=== PATIENT | female | born 1945 ===

== ENCOUNTER 2022-09-29 00:28 | Inpatient (IN) | payer MEDICARE, MEDICAID, SELFPAY ==
--- OUTSIDE RECORDS SUMMARY | 2022-09-29 00:31 | XMS_ITS | Continuity of Care Document ---
Author Name [facility] Address [address] [place] [id number] Organization [facility] Address [address] [place] [address] Care Team Providers Care Superintendent Geophysical Laboratory Name Role Phone Raphael Dupree Rounding Physician Shahzad Jackson Primary Care Physician Allergies, Adverse Reactions, Alerts Allergen Type Severity Reaction Last Updated Verified Status carbamazepine Allergy Mild Unknown November 19, 2020 Y Ac tive glipizide Allergy Unknown September 27, 2022 Y Active lurasidone Allergy Unknown September 27, 2022 Y Activ e Sulfa (Sulfonamide Antibiotics) Allergy Unknown September 27, 2022 Y Active Medications No known medications. Problem List Inactive/Resolved Problems Medical Problem Onset Date Status Acute psychosis Inactive Acute delirium Inactive Procedures Procedure Date Status ECG 12 Lead EKG September 27, 2022 active Relevant Diagnostic Tests and/or Laboratory Data Laboratory Results Test Date/Time Result Interp. Ref. Range Result Co mment White Blood Count September 27, 2022 9:30am 1.59 K/uL Low 3.5-11.0 Results of WBC called to and read back by Dina MORRIS RN on 09/27/22 at 1010 by SHAY. Red Blood Count September 27, 2022 9:30am 4.61 M/uL 3.60-4.80 Hemoglobin September 27, 2022 9:30am 12.8 g/dL 12.0-16.0 Hematocrit September 27, 2022 9:30am 38.4 % 36.0-48.0 Mean Corpuscular Volume September 27, 2022 9:30am 83.3 fL 79.0-98.0 Mean Corpuscular Hemoglobin September 27, 2022 9:30am 27.8 pg 25.4-34.6 Mean Corpuscular Hemoglobin Concent September 27, 2022 9:30am 33.3 g/dL 30.0-36.0 Red Cell Distribution Width September 27, 2022 9:30am 14.6 % High 11.5-14.5 Platelet Count September 27, 2022 9:30am 58 K/uL Low 150-400 Neutrophils (%) (Auto) September 27, 2022 9:30am Not Reportable Lymphocytes (%) (Auto) September 27, 2022 9:30am Not Reportable Monocytes (%) (Auto) September 27, 2022 9:30am Not Reportable Eosinophils (%) (Auto) September 27, 2022 9:30am Not Reportable Basophils (%) (Auto) September 27, 2022 9:30am Not Reportable Absolute Neutrophils (auto) September 27, 2022 9:30am Not Reportable Lymphocytes # (Auto) September 27, 2022 9:30am Not Reportable Monocytes # (Auto) September 27, 2022 9:30am Not Reportable Eosinophils # (Auto) September 27, 2022 9:30am Not Reportable Basophils # (Auto) September 27, 2022 9:30am Not Reportable Sodium Level September 27, 2022 9:30am 135 mmol/L Low 136-145 Potassium Level September 27, 2022 9:30am 3.4 mmol/L Low 3.5-5.1 Chloride Level September 27, 2022 9:30am 98 mmol/L 98-107 Carbon Dioxide Level September 27, 2022 9:30am 22.4 mmol/L 22-29 Anion Gap September 27, 2022 9:30am 18 mmol/L 10-20 Blood Urea Nitrogen September 27, 2022 9:30am 27 mg/dL High 8-23 Creatinine September 27, 2022 9:30am 0.91 mg/dL High 0.50-0.90 Estimat Glomerular Filtration Rate September 27, 2022 9:30am 65 GFR Value: mL/min/1.73 square meters Calculation: CKD-EPI Creatinine Equation (2020) Chronic Kidney Disease is defined as either of the following present for >= 3 months: - GFR less than 60 mL/min/1.73 square meters. - Microalbumin:Ur . Creatinine Ratio >= 30 mg/g or other markers of kidney damage Kidney failure is less than 15 mL/min/1.73 square meters This test is not performed in patients under the age of 18. Glucose Level September 27, 2022 9:30am 353 mg/dL High 82-115 Bedside Glucose September 27, 2022 9:29am 305 mg/dL High 82-115 Calcium Level September 27, 2022 9:30am 9.8 mg/dL 8.8-10.2 Total Bilirubin September 27, 2022 9:30am 0.9 mg/dL 0.2-1.2 Aspartate Amino Transf (AST/SGOT) September 27, 2022 9:30am 32 U/L 5-32 Alanine Aminotransferase (ALT/SGPT) September 27, 2022 9:30am 15 U/L 5-33 Total Protein September 27, 2022 9:30am 7.7 g/dL 6.4-8.3 Albumin September 27, 2022 9:30am 4.7 g/dL 3.5-5.2 Globulin September 27, 2022 9:30am 3.0 gm/dl 2.0-3.5 Albumin/Globulin Ratio September 27, 2022 9:30am 1.6 % 1.1-2.5 Alkaline Phosphatase September 27, 2022 9:30am 123 U/L High 35-104 Advance Directives Advance Directive Response Recorded Date/ Time Any Other Advanced Directives No Au 2022 9:18am Health Care Proxy No September 27 9:18am Chief Complaint and Reason for Visit Encounter Admit Date Chief Complaint Reason for V isit Registered Emergency September 27, 2022 9:17am psych Hospital Discharge Instructions No known hospital discharge instructions. Encounters Encounter Facility Location Admit/Visit Date Discharge/Departure Date Attending Provider Registered Emergency [facility] Emergency Dept [place] September 27, 2022 9:17am Functional Status No known functional status. Immunizations No known immunizations. Plan of Care No Known Plan of Care Information Social History No known social history. Vital Signs Vital Reading Result Reference Range Collection Date/Time Height 5 ft 1 in September 27, 2022 9:22am Weight 128 lb September 27, 2022 9:22am Temperature 97.4 F 96.8 F-100.4 F September 27 9:18am Pulse 125 BPM 50-100 September 27, 2022 9:18am Respiration 18 RPM 12-20 September 27, 2022 9:18am Pulse Oximetry 98 % 92-100 September 27 9:18am Blood Pressure Systolic 198 90-139 [facility] 2022 9:18am Blood Pressure Diastolic 94 60-89 Sep [facility] 2022 9:18am Body Mass Index 24.2 September 27 023 9:22am
--- OUTSIDE RECORDS SUMMARY | 2022-09-29 00:31 | XMS_ITS | Continuity of Care Document ---
Author Name Unknown Organization [facility] Address [address] [place] [address]- Care Team Providers Care Telegraphic Instrument Supervisor Name Role Phone Helder Sanz MD Primary Care Physician [place] [facility] [place] 08/18/[address] [address] [phone] Discharge Disposition: A-Transfer SNF Attending Physician: Bayron Aguilar MD Admitting Physician: Mela BERNAL, Rodrigo Sanchez Referring Physician: Not on Staff, Referring MD Allergies, Adverse Reactions, Alerts Substance Reaction Severity Status sulfADIAZINE Active glipiZIDE Active Tegretol unknown Active Latex Active Immunizations Given and Recorded Vaccine Date Status Refusal Reason pneumococcal 13-valent vaccine 08/16/19 Given Medications amLODIPine 2.5 mg oral tablet 2.5 mg, 1, tablet, By Mouth, Daily, Refills 0, Maintenance, 08/15/19 19:49:00 EDT Start Date: 08/15/19 Status: Ordered aspirin 81 mg oral tablet, chewable 1 tablet = 81 mg, Daily, 0 Refills, Maintenance, 08/14/19 16:25:00 EDT Start Date: 08/14/19 Status: Ordered Fluocinonide 0.05% Topical 1 application, Topically, 2 times a day, 0 Refills, Maintenance, Cream Start Date: 08/15/19 Status: Ordered fluvoxaMINE 100 mg oral tablet 1 tablet = 100 mg, By Mouth, Daily at bedtime, 0 Refills, Maintenance, 08/15/19 19:52:00 EDT Start Date: 08/15/19 Status: Ordered glimepiride 1 mg oral tablet 1 tablet = 1 mg, By Mouth, Daily, 0 Refills, Maintenance, 08/15/19 19:50:00 EDT Start Date: 08/15/19 Status: Ordered Januvia 100 mg oral tablet 1 tablet = 100 mg, By Mouth, Daily, 0 Refills, Maintenance, 08/15/19 19:54:00 EDT Start Date: 08/15/19 Status: Ordered Latuda 80 mg oral tablet 1 tablet = 80 mg, By Mouth, 2 times a day, 0 Refills, Maintenance, 08/15/19 19:50:00 EDT Start Date: 08/15/19 Status: Ordered metFORMIN 500 mg oral tablet 2 tablet = 1,000 mg, By Mouth, 2 times a day, 0 Refills, Maintenance, 08/15/19 19:51:00 EDT Start Date: 08/15/19 Status: Ordered prazosin 1 mg oral capsule 1 mg, 1, capsule, By Mouth, Daily at bedtime, Refills 0, Maintenance, 08/15/19 19:53:00 EDT Start Date: 08/15/19 Status: Ordered Trazodone = 50 mg, By Mouth, Daily at bedtime, PRN Sleep, 0 Refills, Maintenance, 08/15/19 19:51:00 EDT Start Date: 08/15/19 Status: Ordered Problem List Condition Effective Dates Status Health Status Inform ant Hypertension(Confirmed) Active PTSD (post-traumatic stress disorder)(Confirmed) Active Schizophrenia(Confirmed) Active Type 2 diabetes mellitus(Confirmed) Active Vital Signs Most recent to oldest [Reference Range]: 1 2 3 Height 155 cm (08/18/19 7:07 AM) 155 cm (08/18/19 4:39 AM) 155 cm (08/17/19 11:36 PM) Weight 67.5 kg (08/15/19 7:45 PM) 67.5 kg (08/15/19 7:26 PM) 72.5 kg (08/15/19 2:16 PM) Oxygen Saturation [94-100 %] 99 % (08/18/19 7:07 AM) 98 % (08/18/19 4:39 AM) 97 % (08/17/19 11:36 PM) Pulse Rate [55-90 bpm] 72 bpm (08/18/19 7:07 AM) 84 bpm (08/18/19 4:39 AM) 94 bpm *H* (08/17/19 11:36 PM) Body Mass Index [18.5-24.99] 28.1 *H* (08/15/19 7:45 PM) 28.1 *H* (08/15/19 7:26 PM) 30.18 *>HHI* (08/15/19 2:16 PM) Blood Pressure [90-138/55-84 mm Hg] 143/51mm Hg *H* (08/18/19 9:26 AM) 143/51mm Hg *H* (08/18/19 7:07 AM) 155/62mm Hg *H* (08/18/19 4:39 AM) Respiratory Rate [16-30 br/min] 20 br/min (08/18/19 7:07 AM) 17 br/min (08/18/19 4:39 AM) 17 br/min (08/17/19 11:36 PM) Temperature [96.8-100.4 DegF] 98.3 DegF (08/18/19 7:07 AM) 97.7 DegF (08/18/19 4:39 AM) 97.9 DegF (08/17/19 11:36 PM) Liters per Minute 0 L/min (08/16/19 7:00 PM) 0 L/min (08/16/19 4:03 PM) 0 L/min (08/15/19 7:26 PM) Mode of Delivery (Oxygen) Room air (08/18/19 7:07 AM) Room air (08/18/19 4:39 AM) Room air (08/17/19 11:36 PM) Blood pressure sites Arm, right (08/18/19 7:07 AM) Arm, right (08/18/19 4:39 AM) Arm, right (08/17/19 11:36 PM) Temperature Route Oral (08/18/19 7:07 AM) Oral (08/18/19 4:39 AM) Oral (08/17/19 11:36 PM) Dry Weight 67.5 kg (08/15/19 7:45 PM) 72.5 kg (08/15/19 2:16 PM) 72.5 kg (08/14/19 4:13 PM) Weight Obtained Via Bed scale (08/15/19 7:45 PM) Bed scale (08/15/19 7:26 PM) Patient/family stated (08/14/19 4:13 PM) Dry Weight Obtained Via Bed scale (08/15/19 7:45 PM) Mobility assistance Independent (08/16/19 1:00 AM)
--- OUTSIDE RECORDS SUMMARY | 2022-09-29 00:31 | XMS_ITS | Continuity of Care Document ---
Author Name [facility] Address [address] [place] [id number] Organization [facility] Address [address] [place] [address] Care Team Providers Care Grade Recorder Name Role Phone Shahzad Jackson Primary Care Physician [place] Rounding Physician [phone] Allergies, Adverse Reactions, Alerts Allergen Type Severity Reaction Last Updated Verified Status carbamazepine Allergy Mild Unknown September 27, 2022 Y Ac tive glipizide Allergy Unknown September 27, 2022 Y Active lurasidone Allergy Unknown September 27, 2022 Y Activ e Sulfa (Sulfonamide Antibiotics) Allergy Unknown September 27, 2022 Y Active Medications Active Medications Medication Dose Units Route Sig Start Date Status Metformin 500 MG Oral 2 times a day September 27, 2022 Active Sitagliptin Phosphate [Januvia] 100 MG Oral daily September 27, 2022 Active Problem List Active Problems Medical Problem Onset Date Status Acute psychosis Active Paranoid behavior Active Inactive/Resolved Problems Medical Problem Onset Date Status Acute psychosis Inactive Acute delirium Inactive Procedures Procedure Date Status ECG 12 Lead EKG September 27, 2022 active Relevant Diagnostic Tests and/or Laboratory Data Laboratory Results Test Date/Time Result Interp. Ref. Range Result Co mment White Blood Count September 27, 2022 9:30am 1.59 K/uL Low 3.5-11.0 Results of WBC c alled to and read back by Dina MORRIS [...] (Auto) September 27, 2022 9:30am Not Reportable Differential Total Cells Counted September 27, 2022 9:30am 50 Neutrophils % (Manual) September 27, 2022 9:30am 64 % 35-66 Lymphocytes % (Manual) September 27, 2022 9:30am 26 % 25-45 Monocytes % (Manual) September 27, 2022 9:30am 10 % 0-13 Absolute Neutrophils (Manual) September 27, 2022 9:30am 0.51 K/uL Low 1.5-7.5 Results of ANC c alled to and read back by Katharine FARMER RN on 09/27/22 at 1144 by SHAY. Caution: Interpretation of ANC results without inclusion of the WBC differential results may lead to erroneous diagnosis; for example, missing myeloproliferative or lymphoproliferative disorders. Lymphocytes # (Manual) September 27, 2022 9:30am 0.21 K/uL Low 0.8-4.8 Monocytes # (Manual) September 27, 2022 9:30am 0.08 K/uL Low 0.4-1.3 Red Blood Cell Morphology September 27, 2022 9:30am Normal Urine Color September 27, 2022 12:05pm Yellow Yellow Urine Appearance September 27, 2022 12:05pm Clear Clear Urine Specific [place] September 27, 2022 12:05pm 1.010 1.001-1.035 Urine Glucose (UA) September 27, 2022 12:05pm 3+ High Negative Urine Bilirubin September 27, 2022 12:05pm Negative Negative Urine Ketones September 27, 2022 12:05pm Negative Negative Urine Hemoglobin September 27, 2022 12:05pm Trace-intact High Negative Urine pH September 27, 2022 12:05pm 6.5 5.0-8.0 Urine Protein September 27, 2022 12:05pm Negative mg/dl Negative Urine Urobilinogen September 27, 2022 12:05pm 0.2 mg/dl 0.2-1.0 Urine Nitrite September 27, 2022 12:05pm Negative Negative Urine Leukocyte Esterase September 27, 2022 12:05pm Negative Negative Urine RBC September 27, 2022 12:05pm 0-2 0-4/hpf Urine WBC September 27, 2022 12:05pm Rare 0-5/hpf Urine Squamous Epithelial Cells September 27, 2022 12:05pm Rare Few/hpf Urine Bacteria September 27, 2022 12:05pm Rare None seen Sodium Level September 27, 2022 9:30am 135 [...] September 27, 2022 9:30am 65 GFR Value: mL/mi n/1.73 square meters Calculation: CKD-EPI Creatinine Equation (2020) Chronic Kidney Disease is defined as either of the following present for >= 3 months: - GFR less than 60 mL/min/1.73 square meters. - Microalbumin:Ur. Creatinine Ratio >= 30 mg/g or other markers of kidney damage Kidney failure is less than 15 mL/min/1.73 square meters This test is not performed in patients under the age of 18. Glucose Level September 27, 2022 9:30am 353 mg/dL High 82-115 Bedside Glucose September 28, 2022 4:35pm 170 mg/dL High 82-115 Calcium Level September 27, [...] 27, 2022 9:30am 123 U/L High 35-104 Coronavirus 2019 (NEGRO) September 28, 2022 11:31am Negative Negative ID NOW COVID-19 assay is a rapid molecular in vitro diagnostic test utilizing an isothermal nucleic acid amplification technology intended for the qualitative detection of nucleic acid from SARS-CoV-2 viral RNA in direct nasal, nasopharyngeal or throat swabs eluted in viral transport media from individuals who are suspected of COVID-19. Results are for the identification of SARS-CoV-2 RNA which is generally detectable in respiratory samples during the acute phase of infection. Positive results are indicative of the presence of SARS-CoV-2 RNA; clinical correlation with patient history and other diagnostic information is necessary to determine patient infection status. Positive results do not rule out bacterial infection or co-infection with other viruses. Negative results do not preclude SARS-CoV-2 infection and should not be used as the sole basis for patient management decisions. Negative results must be combined with clinical observations, patient history, and epidemiological information. The ID NOW COVID-19 test is only for use under the Food and Drug Administration's Emergency Use Authorization. Advance Directives Advance Directive Response Recorded Date/ Time Any Other Advanced Directives No Au 2022 9:18am Health Care Proxy No September 27 9:18am Chief Complaint and Reason for Visit Encounter Admit Date Chief Complaint Reason for V isit Departed Emergency September 27, 2022 9:17am psych Hospital Discharge Instructions No known hospital discharge instructions. Hospital Discharge Medications Medication Dose Units Route Sig Qty Days Order Date Status Ins tructions Metformin 500 MG Oral 2 times a day September 27, 2022 Active Sitagliptin Phosphate 100 MG Oral daily September 27, 2022 Active Encounters Encounter Facility Location Admit/Visit Date Discharge/Departure Date Attending Provider Departed Emergency [facility] Emergency Dept [place] September 27, 2022 9:17am September 28, 2022 11:18pm Functional Status No known functional status. Immunizations No known immunizations. Plan of Care No Known Plan of Care Information Social History No known social history. Vital Signs Vital Reading Result Reference Range Collection Date/Time Height 5 ft 1 in September 27, 2022 9:22am Weight 128 lb September 27, 2022 9:22am Temperature 97.6 F 96.8 F-100.4 F September 28 8:00am Pulse 90 BPM 50-100 September 28, 2022 4:38pm Respiration 18 RPM 12-September 28, 2022 4:38pm Pulse Oximetry 97 % 92-100 September 28 4:38pm Blood Pressure Systolic 174 90-139 [facility] 2022 4:38pm Blood Pressure Diastolic 88 60-89 [facility] 2022 4:38pm Body Mass Index 24.2 September 27, 2 023 9:22am
--- OUTSIDE RECORDS SUMMARY | 2022-09-29 00:31 | XMS_ITS | Continuity of Care Document ---
Author Name Unknown Organization [facility] Address [address] [place] [address]- Care Team Providers Care Dry Cell Sealer Name Role Phone Helder Sanz MD Primary Care Physician [place] [facility] [place] [address] [phone] Encounter Diagnosis Delusions(Final) - 06/27/19 Paranoia(Final) - 06/27/19 Schizophrenia(Final) - 06/27/19 Stool incontinence(Final) - 06/27/19 Discharge Disposition: Transfer to Psych Facility Attending Physician: Balbir Cueva MD Admitting Physician: Balbir Cueva MD Referring Physician: Not on Staff, Referring MD Allergies, Adverse Reactions, Alerts Substance Reaction Severity Status glipiZIDE Active Tegretol unknown Active Latex Active Medications Chloral Hydrate 100 mg/mL Syrup See Instructions, 0, 01/14/07 11:19:01, 750mg at bed time, Print KIMBERLEY Number, Constant Indicator Start Date: 01/14/07 Status: Ordered Colace Capsule 200, mg, By Mouth, Daily, 0, 0, 01/14/07 11:17:39, Print KIMBERLEY Number, [id number], Constant Indicator Start Date: 01/14/07 Status: Ordered Lamictal Tablet 25, mg, By Mouth, Daily, 0, 0, 01/01/07 15:43:42, Print KIMBERLEY Number, [id number], Constant Indicator Start Date: 01/01/07 Status: Ordered Lamictal Tablet 25, mg, By Mouth, Daily, 0, 0, 0, 01/03/07 10:35:35, Print KIMBERLEY Number, [id number], Constant Indicator Start Date: 01/03/07 Status: Ordered Lisinopril 5, mg, By Mouth, Daily, 0, 0, 01/14/07 11:11:32, Print KIMBERLEY Number, [id number], Constant Indicator Start Date: 01/14/07 Status: Ordered lithium carbonate 300, mg, By Mouth, 2 times a day, 0, 0, 01/01/07 15:42:09, Print KIMBERLEY Number, [id number], ConstantIndicator Start Date: 01/01/07 Status: Ordered metformin-rosiglitazone 1000 mg-2 mg oral tablet 1, tablet, By Mouth, 2 times a day, 0, 0, 01/14/07 11:10:31, Print KIMBERLEY Number, [id number], Constant Indicator Start Date: 01/14/07 Status: Ordered Risperdal Tablet See Instructions, 0, 01/14/07 11:13:22, 2.5mg 2 times a day, Print KIMBERLEY Number, Constant Indicator Start Date: 01/14/07 Status: Ordered Xanax Tablet 0.5, mg, By Mouth, 2 times a day, Scheduled / PRN, 0, 0, 01/01/07 15:45:28, as needed for anxiety, Print KIMBERLEY Number, [id number] Start Date: 01/01/07 Status: Ordered Vital Signs Most recent to oldest [Reference Range]: 1 2 3 Height 158 cm (06/30/19 10:06 AM) 158 cm (06/30/19 1:19 AM) 158 cm (06/29/19 5:48 PM) Weight 71.8 kg (06/30/19 10:06 AM) 71.8 kg (06/30/19 1:19 AM) 71.8 kg (06/29/19 5:48 PM) Oxygen Saturation [94-100 %] 99 % (06/30/19 4:36 PM) 96 % (06/30/19 10:06 AM) 98 % (06/30/19 1:19 AM) Pulse Rate [55-90 bpm] 82 bpm (06/30/19 4:36 PM) 79 bpm (06/30/19 10:06 AM) 86 bpm (06/30/19 1:19 AM) Body Mass Index [18.5-24.99] 28.76 *H* (06/30/19 10:06 AM) 28.76 *H* (06/30/19 1:19 AM) 28.76 *H* (06/29/19 5:48 PM) Blood Pressure [90-138/55-84 mm Hg] 170/66mm Hg *H* (06/30/19 4:36 PM) 178/80mm Hg *H* (06/30/19 10:06 AM) 190/73mm Hg *H* (06/30/19 1:19 AM) Respiratory Rate [16-30 br/min] 18 br/min (06/30/19 4:36 PM) 18 br/min (06/30/19 10:06 AM) 16 br/min (06/30/19 1: AM) Temperature [96.8-100.4 DegF] 97.8 DegF (06/30/19 10:06 AM) 98.3 DegF (06/30/19 1: AM) 98.3 DegF (06/29/19 5:48 PM) Mode of Delivery (Oxygen) Room air (06/30/19 4:36 PM) Room air (06/30/19 1:19 AM) Room air (06/29/19 5:48 PM) Blood pressure sites Arm, left (06/29/19 5:48 PM) Arm, right (06/28/19 9:16 PM) Arm, left (06/28/19 2:36 PM) Temperature Route Oral (06/30/19 10:06 AM) Oral (06/30/19 1:19 AM) Oral (06/29/19 5:48 PM) Dry Weight 71.8 kg (06/30/19 10:06 AM) 71.8 kg (06/30/19 1:19 AM) 71.8 kg (06/29/19 5:48 PM) Weight Obtained Via Patient/family state d (06/27/19 11:33 AM) Dry Weight Obtained Via Patient/family s tated (06/27/19 11:33 AM)
[2022-09-29 02:33] VITALS: BMI 23.3
[2022-09-29 02:36] VITALS: BP 180/80; PULSE 83; RESP 18; TEMP 36.3; O2SAT 98
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
[2022-09-29 05:19] LABS: Glucose, Whole Blood 242 mg/dL (60-115)
[2022-09-29 08:00] VITALS: BP 175/76; PULSE 88; RESP 16; TEMP 36.2; O2SAT 98
[2022-09-29 10:21] LABS: Glucose, Whole Blood 266 mg/dL (60-115)
--- NOTE | 2022-09-29 13:22 | HO.PM.IMCN ---
History of Present Illness Data of Consult Service Date: 09/29/22 Requesting physician: Gautam Guerin Primary Care Provider: Unknown Physician HPI Reason for consult: medical H&P 77-year-old female with [id number] type 2 diabetes, hypertension, chronic leukopenia admitted to Psychiatry from [facility] ED with consult placed to hospitalist service for medical H and P. The patient refused all medications in the ED. Renal function normal, electrolyte levels normal except for a mild hypokalemia 3.4. Glucose elevated at 353, patient refused metformin stating she no longer has diabetes. She has a chronic leukopenia and white blood cell count in the ED was 1.59 without any evidence of infection. Etiology of leukopenia is unclear. She also has a thrombocytopenia 58. Appears to also have chronic thrombocytopenia on review of [facility] records from 2019. She is not a good historian and denies any complaints at this time. Review of Systems Review of Systems: Yes all other systems are reviewed and are negative [facility] Medical History (Updated 09/29/22 @ 13:26 by CORINNE Alegria) Chronic leukopenia Hyperlipidemia Hypertension Type 2 diabetes mellitus Social History Household Members: None Housing: Apartment Do you presently have visiting nurse or other home services: No Patient Tobacco Use Status: Never used Tobacco e-Cigarette/Vaping Use: Never Used Use of substances other than those prescribed or required for medical reasons: No Currently Displaying Signs/Symptoms of Drug Intoxication Withdrawal: No Any prior treatment program specific to substance use: No Have you been hit, kicked, punched, or otherwise hurt by someone within the past year? If so, by whom?: No Are you made to feel afraid or neglected: No Spiritual Healthcare Practices: none [facility] Practices: none Advance Directives: No Advance Directives Information Provided: No Do you have thoughts of harming others: None Do you have a plan to hurt others: No Plan Recently lost weight without trying: No Nutrition Risks: Dental problems Patient : No : No Poor oral hygiene: Yes (has lost her dentures) Meds Allergies Allergy/AdvReac Type Severity Reaction Status Date / Time No Known Allergies Allergy Verified 09/29/22 00:49 Active Medications: Current Medications Acetaminophen (Acetaminophen 325 Mg Tablet) 650 mg PO Q6H PRN PRN Reason: Headache/Pain Mild Scale (1-3) Al Hydroxide/Mg Hydroxide (Magnesium Hydrox/Alum Hydrox 30 Ml Oral.Susp) 30 ml PO Q6H PRN PRN Reason: Heartburn/Nausea Amlodipine Besylate (Amlodipine Besylate 5 Mg Tablet) 5 mg PO DAILY [facility]; Protocol Last Admin: 09/29/22 08:58 Dose: Not Given Aripiprazole (Aripiprazole 5 Mg Tablet) 5 mg PO DAILY [facility] Last Admin: 09/29/22 08:58 Dose: Not Given Furosemide (Furosemide 20 Mg Tablet) 20 mg PO DAILY [facility]; Protocol Last Admin: 09/29/22 08:58 Dose: Not Given Hydroxyzine HCl (Hydroxyzine Hcl 25 Mg Tablet) 25 mg PO Q6H PRN PRN Reason: Anxiety Magnesium Hydroxide (Milk Of Magnesia 30 Ml Oral.Susp) 30 ml PO DAILY PRN PRN Reason: Constipation Metformin HCl (Metformin Hcl 500 Mg Tablet) 500 mg PO BIDWM [facility] Last Admin: 09/29/22 08:57 Dose: Not Given Sitagliptin Phosphate (Sitagliptin Phosphate 100 Mg Tablet) 100 mg PO DAILY [facility] Last Admin: 09/29/22 08:58 Dose: Not Given Trazodone HCl (Trazodone Hcl 50 Mg Tablet) 50 mg PO BEDTIME MRX1 PRN PRN Reason: Insomnia Physical Exam Vital Signs and Narrative: Vital Signs: Last Vital Signs Temp 97.2 F 09/29/22 08:00 Pulse 88 09/29/22 08:00 Resp 16 09/29/22 08:00 BP 175/76 H 09/29/22 08:00 Pulse Ox 98 09/29/22 08:00 O2 Del Method Room Air 09/29/22 08:00 BMI result Body Mass Index 23.3 Constitutional - Awake and Alert, No apparent distress Eyes - PERRLA, EOMI Cardiovascular - S1S2, RRR, No edema Respiratory - Normal lung expansion, Normal respiratory effort, No respiratory distress, CTA bilaterally Gastrointestinal - NT / ND; +BS; No rebound or guarding Extremities - no calf tenderness bilaterally, no swelling Skin - Warm/Dry Neurological - Alert & oriented x3, CN II-XII in tact, 5/5 strength BUE and BLE Psychological - Appropriate affect Results Labs Labs: Laboratory Results - last 24 hr 09/29/22 09/29/22 05:11 07:28 POC Glucose 242 H 266 H Assessment and Plan (1) Routine medical exam: Status: Acute Plan 77-year-old female with [id number] type 2 diabetes, hypertension, chronic leukopenia admitted to Psychiatry from [facility] ED with consult placed to hospitalist service for medical H and P. #Mood disorder/psychosis -plan per psychiatry # [id number] type 2 diabetes with hyperglycemia -check hemoglobin A1c -point of care glucose -continue metformin -consider Humalog on sliding scale if hyperglycemia persists -diabetic diet if agreeable # hypertension -blood pressure uncontrolled -administer patient's home medications # hyperlipidemia -continue home meds #Chronic leukopenia/thrombocytopenia -chronic per [facility] records -etiology unclear. No evidence of infection -Recommend outpt follow up with hematology Thank you for allowing me to participate in this consult. Signing off at this time. Please do not hesitate to call for further questions. Time Spent With Patient Time: Total time managing care of this patient today ____ minutes.
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
[2022-09-29] MEDS: metFORMIN HCl 500 MG TABLET PO (17:35)
[2022-09-29 18:00] VITALS: BP 180/79; PULSE 75; RESP 16; TEMP 36.7; O2SAT 100
--- NOTE | 2022-09-29 23:28 | PC.NURSE ---
Assumed care 19:30. See assessments for full details. Pt's sister Tala called and requested an update which was provided. Handoff report given 23:00.
[2022-09-30 07:04] LABS: Glucose, Whole Blood 200 mg/dL (60-115)
[2022-09-30 07:25] LABS: Estimated Average Glucose 217 mg/dL; Hemoglobin A1c % 9.2 %
[2022-09-30 07:42] LABS: Alanine Aminotransferase 15 U/L (0-31); Albumin Level 3.9 g/dL (3.5-5.0); Alkaline Phosphatase 95 U/L (39-117); Anion Gap 12 (12-20); Aspartate Amino Transferase 27 U/L (5-31); Bilirubin Total 1.1 mg/dL (0.0-1.0); Blood Urea Nitrogen 26 mg/dL (9-16); Calcium 9.9 mg/dL (8.4-10.2); Carbon Dioxide 23 mmol/L (22-29); Chloride 109 mmol/L (96-108); Cholesterol 129 mg/dL; Creatinine Clr Calc Pharmacy 41.8; Estimated Glomerular Filt Rate > 60; Glucose Fasting 186 mg/dL (60-99); HDL Cholesterol 51 mg/dL; LDL Cholesterol Calculated 66 mg/dl; Sodium 140 mmol/L (135-145); Total Protein 6.7 g/dL (6.5-8.0); Triglycerides 61 mg/dL
[2022-09-30 07:57] LABS: Free T4 (Free Thyroxine) 1.11 ng/dL (0.71-1.85); Thyroid Stimulating Hormone 1.09 uIU/mL (0.32-4.0)
[2022-09-30 08:00] VITALS: BP 190/76; PULSE 70; RESP 16; TEMP 36.3; O2SAT 98
[2022-09-30 08:10] LABS: Folate 7.8 ng/mL (> or = 4.0); Vitamin B12 413 pg/mL (200-900)
[2022-09-30] MEDS: metFORMIN HCl 500 MG TABLET PO ×2 (08:46→16:53)
--- NOTE | 2022-09-30 10:32 | HO.PSYCHPN ---
Subjective Subjective Date of Service: 09/30/22 Reason For Visit: F29 Shizophrenia, F43.10 PTSD Interim History: much more intelligible today, dressed in street clothes. asking for her shoes, asking to sign 3-day notice. BP 190/76. took metformin x 2 otherwise refusing meds incl anti-HTN meds. anxious. Mental Status Exam Mental Status Exam Narrative: adequately dressed and groomed, wearing street clothes. no PMA/PMR. cooperative. speech incr in amount, nml rate, nml loudness, nml tone, decr latency. thoughts more organized, goal-directed on getting shoes and signing 3-day notice. affect non-labile, constricted, normo-intense. no SI/HI/AVH expressed. Diagnostics Vital Signs (24Hr): Vital Signs - 24 hr 09/29/22 18:00 09/30/22 08:00 Temperature 98.0 F 97.3 F Pulse Rate 75 70 Respiratory Rate 16 16 Blood Pressure 180/79 H 190/76 H Pulse Oximetry 100 98 Oxygen Delivery Method Room Air Room Air BMI result Body Mass Index 23.3 Labs 09/30/22 06:53 Labs: Laboratory Results - last 48 hr 09/29/22 09/29/22 09/30/22 05:11 07:28 06:34 Sodium Potassium Chloride Carbon Dioxide Anion Gap BUN Creatinine Estim Creat Clear Calc Estimated GFR POC Glucose 242 H 266 H 200 H Fasting Glucose Estimat Average Glucose Hemoglobin A1c % Calcium Total Bilirubin AST ALT Alkaline Phosphatase Total Protein Albumin Triglycerides Cholesterol LDL Cholesterol, Calc HDL Cholesterol Vitamin B12 Folate TSH Free T4 09/30/22 09/30/22 09/30/22 06:53 06:53 06:53 Sodium 140 Potassium 4.0 Chloride 109 H Carbon Dioxide 23 Anion Gap 12 BUN 26 H Creatinine 0.85 Estim Creat Clear Calc 41.8 Estimated GFR > 60 POC Glucose Fasting Glucose 186 H Estimat Average Glucose 217 Hemoglobin A1c % 9.2 Calcium 9.9 Total Bilirubin 1.1 H AST 27 ALT 15 Alkaline Phosphatase 95 Total Protein 6.7 Albumin 3.9 Triglycerides 61 Cholesterol 129 LDL Cholesterol, Calc 66 HDL Cholesterol 51 Vitamin B12 413 Folate 7.8 TSH 1.09 Free T4 1.11 Medications Medications Current Medications Acetaminophen (Acetaminophen 325 Mg Tablet) 650 mg PO Q6H PRN PRN Reason: Headache/Pain Mild Scale (1-3) Al Hydroxide/Mg Hydroxide (Magnesium Hydrox/Alum Hydrox 30 Ml Oral.Susp) 30 ml PO Q6H PRN PRN Reason: Heartburn/Nausea Amlodipine Besylate (Amlodipine Besylate 5 Mg Tablet) 5 mg PO DAILY [facility]; Protocol Last Admin: 09/30/22 08:48 Dose: Not Given Aripiprazole (Aripiprazole 5 Mg Tablet) 5 mg PO DAILY [facility] Last Admin: 09/30/22 08:48 Dose: Not Given Furosemide (Furosemide 20 Mg Tablet) 20 mg PO DAILY [facility]; Protocol Last Admin: 09/30/22 08:49 Dose: Not Given Hydroxyzine HCl (Hydroxyzine Hcl 25 Mg Tablet) 25 mg PO Q6H PRN PRN Reason: Anxiety Magnesium Hydroxide (Milk Of Magnesia 30 Ml Oral.Susp) 30 ml PO DAILY PRN PRN Reason: Constipation Metformin HCl (Metformin Hcl 500 Mg Tablet) 500 mg PO BIDWM [facility] Last Admin: 09/30/22 08:46 Dose: 500 mg Sitagliptin Phosphate (Sitagliptin Phosphate 100 Mg Tablet) 100 mg PO DAILY [facility] Last Admin: 09/30/22 08:49 Dose: Not Given Trazodone HCl (Trazodone Hcl 50 Mg Tablet) 50 mg PO BEDTIME MRX1 PRN PRN Reason: Insomnia Allergies Allergies Allergy/AdvReac Type Severity Reaction Status Date / Time No Known Allergies Allergy Verified 09/29/22 00:49 Assessment & Plan Assessment & Plan (1) Schizophrenia: Status: Acute Code(s): F20.9 - Schizophrenia, unspecified (2) Diabetes mellitus: Status: Acute Code(s): E11.9 - Type 2 diabetes mellitus without complications (3) Hypertension: Status: Acute Code(s): I10 - Essential (primary) hypertension Plan 09/29: restart home meds. 09/30: refusing all meds aside from metformin. signed 3-day notice. continue to encourage to takes meds. BP 190 systolic today. Reason for continued inpatient stay Substantial Risk for: harm to self, inability to function and rapid decompensation Time Spent With Patient Time: Total time managing care of this patient today ____ minutes.
[2022-09-30 18:00] VITALS: BP 143/65; PULSE 85; RESP 17; TEMP 35.9; O2SAT 98
[2022-10-01 06:59] LABS: Glucose, Whole Blood 213 mg/dL (60-115)
[2022-10-01 10:30] VITALS: BP 185/74; PULSE 74; RESP 16; TEMP 36.4; O2SAT 98
[2022-10-01] MEDS: metFORMIN HCl 500 MG TABLET PO ×2 (10:33→18:09)
[2022-10-01] MEDS: SITagliptin Phosphate 100 MG TABLET PO (10:33)
[2022-10-01] MEDS: ARIPiprazole 5 MG TABLET PO (10:33)
[2022-10-01] MEDS: amLODIPine Besylate 5 MG TABLET PO (10:34)
[2022-10-01] MEDS: Furosemide 20 MG TABLET PO (10:34)
[2022-10-01 11:32] LABS: Glucose, Whole Blood 340 mg/dL (60-115)
--- NOTE | 2022-10-01 11:48 | HO.PSYCHPN ---
Subjective Subjective Date of Service: 10/01/22 Reason For Visit: F29 Shisouravphjean, F43.10 PTSD Interim History: The nursing staff reported the patient signed a 3 day notice, she had been refusing his trachea trich medications and even her metformin. She slept only 2 hours. Yesterday the patient was wandering refusing medications and today her blood pressure was extremely high and she has refused also meds but later on she took it with encouragement. On interview the patient remains grossly psychotic, unable to take care of herself. We are going to file Section 7 and 8. On interview, she recognized me since I used to work in a [employer] in [place]. She stated that she is going to take her medications as ordered. Mental Status Exam Mental Status Exam Patient Appearance: Disheveled Patient Orientation: Person and Situation Level of Consciousness: Awake and Restless Patient Behavior: Guarded, Restless and Avoidant Mood Description: Withdrawn Affect Description: Labile Patient Cognition Impaired: Yes Ability to Follow Directions: Good Speech Pattern: Clear Hallucinations: Auditory Delusions: Paranoid Ideation and Ideas of Reference Thought Process: Illogical and Slowed Thinking Thought Content: positive for [place], positive for Perseveration and positive for Poverty of Content Judgement: Poor Diagnostics Vital Signs (24Hr): Vital Signs - 24 hr 09/30/22 18:00 10/01/22 10:30 Temperature 96.7 F L 97.5 F Pulse Rate 85 74 Respiratory Rate 17 16 Blood Pressure 143/65 H 185/74 H Pulse Oximetry 98 98 Oxygen Delivery Method Room Air Room Air BMI result Body Mass Index 23.3 Labs 09/30/22 06:53 Labs: Laboratory Results - last 48 hr 09/30/22 09/30/22 09/30/22 06:34 06:53 06:53 Sodium 140 Potassium 4.0 Chloride 109 H Carbon Dioxide 23 Anion Gap 12 BUN 26 H Creatinine 0.85 Estim Creat Clear Calc 41.8 Estimated GFR > 60 POC Glucose 200 H Fasting Glucose 186 H Estimat Average Glucose 217 Hemoglobin A1c % 9.2 Calcium 9.9 Total Bilirubin 1.1 H AST 27 ALT 15 Alkaline Phosphatase 95 Total Protein 6.7 Albumin 3.9 Triglycerides 61 Cholesterol 129 LDL Cholesterol, Calc 66 HDL Cholesterol 51 Vitamin B12 Folate TSH 1.09 Free T4 1.11 09/30/22 10/01/22 10/01/22 06:53 06:43 11:28 Sodium Potassium Chloride Carbon Dioxide Anion Gap BUN Creatinine Estim Creat Clear Calc Estimated GFR POC Glucose 213 H 340 H Fasting Glucose Estimat Average Glucose Hemoglobin A1c % Calcium Total Bilirubin AST ALT Alkaline Phosphatase Total Protein Albumin Triglycerides Cholesterol LDL Cholesterol, Calc HDL Cholesterol Vitamin B12 413 Folate 7.8 TSH Free T4 Medications Medications Current Medications Acetaminophen (Acetaminophen 325 Mg Tablet) 650 mg PO Q6H PRN PRN Reason: Headache/Pain Mild Scale (1-3) Al Hydroxide/Mg Hydroxide (Magnesium Hydrox/Alum Hydrox 30 Ml Oral.Susp) 30 ml PO Q6H PRN PRN Reason: Heartburn/Nausea Amlodipine Besylate (Amlodipine Besylate 5 Mg Tablet) 5 mg PO DAILY [facility]; Protocol Last Admin: 10/01/22 10:34 Dose: 5 mg Aripiprazole (Aripiprazole 5 Mg Tablet) 5 mg PO DAILY [facility] Last Admin: 10/01/22 10:33 Dose: 5 mg Furosemide (Furosemide 20 Mg Tablet) 20 mg PO DAILY [facility]; Protocol Last Admin: 10/01/22 10:34 Dose: 20 mg Hydroxyzine HCl (Hydroxyzine Hcl 25 Mg Tablet) 25 mg PO Q6H PRN PRN Reason: Anxiety Magnesium Hydroxide (Milk Of Magnesia 30 Ml Oral.Susp) 30 ml PO DAILY PRN PRN Reason: Constipation Metformin HCl (Metformin Hcl 500 Mg Tablet) 500 mg PO BIDWM [facility] Last Admin: 10/01/22 10:33 Dose: 500 mg Sitagliptin Phosphate (Sitagliptin Phosphate 100 Mg Tablet) 100 mg PO DAILY [facility] Last Admin: 10/01/22 10:33 Dose: 100 mg Trazodone HCl (Trazodone Hcl 50 Mg Tablet) 50 mg PO BEDTIME MRX1 PRN PRN Reason: Insomnia Allergies Allergies Allergy/AdvReac Type Severity Reaction Status Date / Time No Known Allergies Allergy Verified 09/29/22 00:49 Assessment & Plan Assessment & Plan (1) Schizophrenia: Status: Acute Code(s): F20.9 - Schizophrenia, unspecified (2) Diabetes mellitus: Status: Acute Code(s): E11.9 - Type 2 diabetes mellitus without complications (3) Hypertension: Status: Acute Code(s): I10 - Essential (primary) hypertension Plan The patient is a 77-year-old female with a prior history of schizophrenia who was brought into the emergency room of another hospital for disorganized behavior, unable to take care of herself, her home was full with feces is rodents and spoiled food, unable to take care of herself. Since admission she has refused to take medications and she has been grossly disorganized. She is in a 3 day notice. Plan 1. Gather collateral information. 2. We are going to filed for Section 7 and 8 since the patient is unable to take care of herself. 3. We will continue with medical workout. Reason for continued inpatient stay Substantial Risk for: inability to function, rapid decompensation and med/psych decompensation Time Spent With Patient Time: Total time managing care of this patient today __20__ minutes.
--- NOTE | 2022-10-01 11:52 | PC.NURSE ---
THIS NURSE TOOK THIS PT.'S BG PRIOR TO LUNCH AND IT READ 340. SHE THEN REPORTED THIS INFORMATION TO DR. WATERS VIA [employer]. STATED UNDERSTANDING.
[2022-10-01 18:00] VITALS: BP 133/64; PULSE 88; RESP 16; TEMP 35.9; O2SAT 98
[2022-10-02 00:21] LABS: Glucose, Whole Blood 255 mg/dL (60-115)
[2022-10-02 06:10] LABS: Glucose, Whole Blood 159 mg/dL (60-115)
[2022-10-02 08:06] VITALS: BP 170/72; PULSE 94; RESP 20; TEMP 36.4; O2SAT 96
--- NOTE | 2022-10-02 09:26 | PC.NURSE ---
Bp 170/72, denied headache. Refused morning medications and Dr. Guerin notified. Will reassess bp and reapproach with meds.
--- NOTE | 2022-10-02 10:06 | PC.NURSE ---
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 Why do you need to recheck my blood pressure? You just checked it! You're going to make it higher because you keep irritating me. MD Guerin notified.
--- NOTE | 2022-10-02 13:31 | HO.PSYCHPN ---
Subjective Subjective Date of Service: 10/02/22 Reason For Visit: F29 Shizophrenia, F43.10 PTSD Subjective Notes: Section 7, Section 8 and 3 Day Interim History: The nursing staff reported the patient has refused her medications in the morning. She was seen pleasant, in the common areas coloring but later on she was medication and meal compliant. In the evening she slept very poorly. On interview the patient is pleasantly confused I advised her to take her her medications. We will try to do an assessment of her cognition and gather more collateral information. Mental Status Exam Mental Status Exam Patient Appearance: Appropriate Patient Orientation: Person and Situation Level of Consciousness: Awake and Appropriate Patient Behavior: Guarded and Passive Mood Description: Calm Affect Description: Labile Patient Cognition Impaired: Yes Ability to Follow Directions: Fair Speech Pattern: Impoverished Hallucinations: None Delusions: Paranoid Ideation and Ideas of Reference Thought Process: Illogical and Evasive Thought Content: positive for [place] and positive for Perseveration Judgement: Fair Diagnostics Vital Signs (24Hr): Vital Signs - 24 hr 10/01/22 18:00 10/02/22 08:06 Temperature 96.7 F L 97.6 F Pulse Rate 88 94 Respiratory Rate 16 20 Blood Pressure 133/64 170/72 H Pulse Oximetry 98 96 Oxygen Delivery Method Room Air Room Air BMI result Body Mass Index 23.3 Labs 09/30/22 06:53 Labs: Laboratory Results - last 48 hr 10/01/22 10/01/22 10/01/22 06:43 11:28 19:40 POC Glucose 213 H 340 H 255 H 10/02/22 04:17 POC Glucose 159 H Medications Medications Current Medications Acetaminophen (Acetaminophen 325 Mg Tablet) 650 mg PO Q6H PRN PRN Reason: Headache/Pain Mild Scale (1-3) Al Hydroxide/Mg Hydroxide (Magnesium Hydrox/Alum Hydrox 30 Ml Oral.Susp) 30 ml PO Q6H PRN PRN Reason: Heartburn/Nausea Amlodipine Besylate (Amlodipine Besylate 5 Mg Tablet) 5 mg PO DAILY [facility]; Protocol Last Admin: 10/02/22 10:09 Dose: Not Given Aripiprazole (Aripiprazole 5 Mg Tablet) 5 mg PO DAILY [facility] Last Admin: 10/02/22 10:09 Dose: Not Given Furosemide (Furosemide 20 Mg Tablet) 20 mg PO DAILY [facility]; Protocol Last Admin: 10/02/22 10:09 Dose: Not Given Hydroxyzine HCl (Hydroxyzine Hcl 25 Mg Tablet) 25 mg PO Q6H PRN PRN Reason: Anxiety Magnesium Hydroxide (Milk Of Magnesia 30 Ml Oral.Susp) 30 ml PO DAILY PRN PRN Reason: Constipation Metformin HCl (Metformin Hcl 500 Mg Tablet) 500 mg PO BIDWM [facility] Last Admin: 10/02/22 10:09 Dose: Not Given Sitagliptin Phosphate (Sitagliptin Phosphate 100 Mg Tablet) 100 mg PO DAILY [facility] Last Admin: 10/02/22 10:09 Dose: Not Given Trazodone HCl (Trazodone Hcl 50 Mg Tablet) 50 mg PO BEDTIME MRX1 PRN PRN Reason: Insomnia Allergies Allergies Allergy/AdvReac Type Severity Reaction Status Date / Time No Known Allergies Allergy Verified 09/29/22 00:49 Assessment & Plan Assessment & Plan (1) Schizophrenia: Status: Acute Code(s): F20.9 - Schizophrenia, unspecified (2) Diabetes mellitus: Status: Acute Code(s): E11.9 - Type 2 diabetes mellitus without complications (3) Hypertension: Status: Acute Code(s): I10 - Essential (primary) hypertension Plan The patient is a 77-year-old female with a prior history of schizophrenia who was brought into the emergency room of another hospital for disorganized behavior, unable to take care of herself, her home was full with feces is rodents and spoiled food, unable to take care of herself. Since admission she has refused to take medications and she has been grossly disorganized. She is in a 3 day notice. Plan 1. Gather collateral information. 2. We are going to filed for Section 7 and 8 since the patient is unable to take care of herself. 3. We will continue with medical workout. Reason for continued inpatient stay Substantial Risk for: inability to function, rapid decompensation and med/psych decompensation Time Spent With Patient Time: Total time managing care of this patient today __20__ minutes.
--- NOTE | 2022-10-02 16:53 | PC.NURSE ---
Refused [address] Guerin notified.
[2022-10-02 18:00] VITALS: BP 177/80; PULSE 90; RESP 16; TEMP 35.5; O2SAT 99
--- NOTE | 2022-10-02 21:53 | PC.NURSE ---
pt seated in the common area speaking with a peer. i approached the pt and asked if i might recheck her b/p. 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 i'm not going to take any medications. i explained that her b/p had been elevated and we should make sure that this situation was improved. pt refused b/p and marched down to her room shouting your not going to give me any more medications. at this juncture there is no poit to retake her b/p because of her anger and agitation. most certainly the b/p will be elevated.
[2022-10-03 08:45] VITALS: BP 141/67; PULSE 85; RESP 16; TEMP 36.6; O2SAT 100
--- NOTE | 2022-10-03 08:51 | PC.NURSE ---
pt refused all 9am scheduled medication. I spoke to my doctor and he said I no longer have diabetes and my blood pressure is good . PT was educated that diabetes and BP can be managed with medication. Compliance was encouraged but refused.
--- NOTE | 2022-10-03 14:46 | HO.PSYCHPN ---
Subjective Subjective Date of Service: 10/03/22 Reason For Visit: F29 Shizophrenia, F43.10 PTSD Subjective Notes: Section 7, Section 8 and 3 Day Interim History: The nursing staff reported the patient had been irritable, she refused medications in the morning and he refused vital signs. She also has refused assessment by the other staff. The social and human services assistant reported that finally she signed consents and they could contact the [facility] caseworker protective services apparently she is going to be evicted from the home and now we are looking for placement. On interview the patient denies new symptoms she looks irritable at times but redirectable. Mental Status Exam Mental Status Exam Patient Appearance: Well Grooomed and Appropriate Patient Orientation: Person and Situation Level of Consciousness: Awake and Appropriate Patient Behavior: Guarded and Passive Mood Description: Withdrawn and Labile Affect Description: Labile Patient Cognition Impaired: Yes Ability to Follow Directions: Good Speech Pattern: Clear Hallucinations: None Delusions: Paranoid Ideation and Ideas of Reference Thought Process: Illogical and Distracted Judgement: Poor Diagnostics Vital Signs (24Hr): Vital Signs - 24 hr 10/02/22 18:00 10/03/22 08:45 Temperature 96 F L 97.8 F Pulse Rate 90 85 Respiratory Rate 16 16 Blood Pressure 177/80 H 141/67 H Pulse Oximetry 99 100 Oxygen Delivery Method Room Air Room Air BMI result Body Mass Index 23.3 Labs 09/30/22 06:53 Labs: Laboratory Results - last 48 hr 10/01/22 10/02/22 19:40 04:17 POC Glucose 255 H 159 H Medications Medications Current Medications Acetaminophen (Acetaminophen 325 Mg Tablet) 650 mg PO Q6H PRN PRN Reason: Headache/Pain Mild Scale (1-3) Al Hydroxide/Mg Hydroxide (Magnesium Hydrox/Alum Hydrox 30 Ml Oral.Susp) 30 ml PO Q6H PRN PRN Reason: Heartburn/Nausea Amlodipine Besylate (Amlodipine Besylate 5 Mg Tablet) 5 mg PO DAILY MARCOS; Protocol Last Admin: 10/03/22 08:50 Dose: Not Given Aripiprazole (Aripiprazole 5 Mg Tablet) 5 mg PO DAILY [facility]OS Last Admin: 10/03/22 08:51 Dose: Not Given Furosemide (Furosemide 20 Mg Tablet) 20 mg PO DAILY MARCOS; Protocol Last Admin: 10/03/22 08:51 Dose: Not Given Hydroxyzine HCl (Hydroxyzine Hcl 25 Mg Tablet) 25 mg PO Q6H PRN PRN Reason: Anxiety Magnesium Hydroxide (Milk Of Magnesia 30 Ml Oral.Susp) 30 ml PO DAILY PRN PRN Reason: Constipation Metformin HCl (Metformin Hcl 500 Mg Tablet) 500 mg PO BIDWM [facility] Last Admin: 10/03/22 08:50 Dose: Not Given Sitagliptin Phosphate (Sitagliptin Phosphate 100 Mg Tablet) 100 mg PO DAILY [facility] Last Admin: 10/03/22 08:51 Dose: Not Given Trazodone HCl (Trazodone Hcl 50 Mg Tablet) 50 mg PO BEDTIME MRX1 PRN PRN Reason: Insomnia Allergies Allergies Allergy/AdvReac Type Severity Reaction Status Date / Time No Known Allergies Allergy Verified 09/29/22 00:49 Assessment & Plan Assessment & Plan (1) Schizophrenia: Status: Acute Code(s): F20.9 - Schizophrenia, unspecified (2) Diabetes mellitus: Status: Acute Code(s): E11.9 - Type 2 diabetes mellitus without complications (3) Hypertension: Status: Acute Code(s): I10 - Essential (primary) hypertension Plan The patient is a 77-year-old female with a prior history of schizophrenia who was brought into the emergency room of another hospital for disorganized behavior, unable to take care of herself, her home was full with feces is rodents and spoiled food, unable to take care of herself. Since admission she has refused to take medications and she has been grossly disorganized. She is in a 3 day notice. Plan 1. Gather collateral information. 2. We are going to filed for Section 7 and 8 since the patient is unable to take care of herself. 3. We will continue with medical workout. 4. At this moment the patient will be technically homeless and we will need to find her proper housing. dry dip worker is working with [facility] caseworker protective services Reason for continued inpatient stay Substantial Risk for: inability to function, rapid decompensation and med/psych decompensation Time Spent With Patient Time: Total time managing care of this patient today __20__ minutes.
[2022-10-03 20:10] VITALS: BP 174/74; PULSE 86; RESP 15; TEMP 36.2; O2SAT 97
[2022-10-03 21:45] VITALS: BP 146/65; PULSE 88
[2022-10-04 07:27] LABS: Glucose, Whole Blood 264 mg/dL (60-115)
--- NOTE | 2022-10-04 08:36 | PC.NURSE ---
pt refused all 0800 & 0900 scheduled medication, My doctor said I don't need it, so I ain't taking it. I trust him . Pt also refused vital signs, My blood pressure is fine , when asked how the pt knows BP is fine she responded, I check it in my fingers .
--- NOTE | 2022-10-04 13:35 | MHC.CLN ---
NUTRITION PATIENT REFUSING DIABETIC MEDICATIONS. PO INTAKE POOR. DIET=REGULAR. APPROPRIATE TO PROMOTE PO INTAKE. CONTINUE TO MONITOR FOR INTAKE AND MED COMPLIANCE.
--- NOTE | 2022-10-04 13:51 | HO.PSYCHPN ---
Subjective Subjective Date of Service: 10/04/22 Reason For Visit: F29 Shizophrenia, F43.10 PTSD Subjective Notes: Section 7 and Section 8 Interim History: The nursing staff reported the last night the patient was yelling to the RN stating that the nurses told her shoes. She had been poorly compliant with treatment she slept only 4 hours. The staff has noticed that she has refused even vital signs. The director social service reported the manager rn case from [facility] contact and apparently the patient is going to be evicted. On interview the patient was internally preoccupied, dismissive. Mental Status Exam Mental Status Exam Patient Appearance: Appropriate Patient Orientation: Person Level of Consciousness: Awake Patient Behavior: Guarded and Passive Mood Description: Withdrawn Affect Description: Constricted Patient Cognition Impaired: Yes Ability to Follow Directions: Good Speech Pattern: Clear Hallucinations: None Delusions: Paranoid Ideation Thought Process: Illogical and Slowed Thinking Thought Content: positive for [place] and positive for Poverty of Content Judgement: Poor Diagnostics Vital Signs (24Hr): Vital Signs - 24 hr 10/03/22 20:10 10/03/22 21:45 Temperature 97.1 F Pulse Rate 86 88 Respiratory Rate 15 Blood Pressure 174/74 H 146/65 H Pulse Oximetry 97 Oxygen Delivery Method Room Air BMI result Body Mass Index 23.3 Labs 09/30/22 06:53 Labs: Laboratory Results - last 48 hr 10/04/22 07:19 POC Glucose 264 H Medications Medications Current Medications Acetaminophen (Acetaminophen 325 Mg Tablet) 650 mg PO Q6H PRN PRN Reason: Headache/Pain Mild Scale (1-3) Al Hydroxide/Mg Hydroxide (Magnesium Hydrox/Alum Hydrox 30 Ml Oral.Susp) 30 ml PO Q6H PRN PRN Reason: Heartburn/Nausea Amlodipine Besylate (Amlodipine Besylate 5 Mg Tablet) 5 mg PO DAILY MARCOS; Protocol Last Admin: 10/04/22 08:34 Dose: Not Given Aripiprazole (Aripiprazole 10 Mg Tablet) 10 mg PO BEDTIME [facility]OS Furosemide (Furosemide 20 Mg Tablet) 20 mg PO DAILY MARCOS; Protocol Last Admin: 10/04/22 08:35 Dose: Not Given Hydroxyzine HCl (Hydroxyzine Hcl 25 Mg Tablet) 25 mg PO Q6H PRN PRN Reason: Anxiety Magnesium Hydroxide (Milk Of Magnesia 30 Ml Oral.Susp) 30 ml PO DAILY PRN PRN Reason: Constipation Metformin HCl (Metformin Hcl 500 Mg Tablet) 500 mg PO BIDWM [facility] Last Admin: 10/04/22 08:34 Dose: Not Given Sitagliptin Phosphate (Sitagliptin Phosphate 100 Mg Tablet) 100 mg PO DAILY [facility] Last Admin: 10/04/22 08:35 Dose: Not Given Trazodone HCl (Trazodone Hcl 50 Mg Tablet) 50 mg PO BEDTIME MRX1 PRN PRN Reason: Insomnia Allergies Allergies Allergy/AdvReac Type Severity Reaction Status Date / Time No Known Allergies Allergy Verified 09/29/22 00:49 Assessment & Plan Assessment & Plan (1) Schizophrenia: Status: Acute Code(s): F20.9 - Schizophrenia, unspecified (2) Diabetes mellitus: Status: Acute Code(s): E11.9 - Type 2 diabetes mellitus without complications (3) Hypertension: Status: Acute Code(s): I10 - Essential (primary) hypertension Plan The patient is a 77-year-old female with a prior history of schizophrenia who was brought into the emergency room of another hospital for disorganized behavior, unable to take care of herself, her home was full with feces is rodents and spoiled food, unable to take care of herself. Since admission she has refused to take medications and she has been grossly disorganized. She is in a 3 day notice. Plan 1. Gather collateral information. 2. We are going to filed for Section 7 and 8 since the patient is unable to take care of herself. 3. We will continue with medical workout. 4. At this moment the patient will be technically homeless and we will need to find her proper housing. geothermal sheet metal worker is working with [facility] field nurse case manager Reason for continued inpatient stay Substantial Risk for: inability to function, rapid decompensation and med/psych decompensation Time Spent With Patient Time: Total time managing care of this patient today __20__ minutes.
[2022-10-04] MEDS: ARIPiprazole 10 MG TABLET PO (21:32)
[2022-10-04 21:45] VITALS: BP 180/74; PULSE 75; TEMP 36.6; O2SAT 97
[2022-10-05 06:54] LABS: Glucose, Whole Blood 255 mg/dL (60-115)
--- NOTE | 2022-10-05 09:00 | PC.NURSE ---
pt refused AM scheduled medications and vitals
--- NOTE | 2022-10-05 13:21 | P.PNPSI_ITS ---
Subjective Subjective Date of Service: 10/05/22 Reason For Visit: F29 Shizophrenia, F43.10 PTSD Subjective Notes: Section 7, Section 8, Conditional Voluntary and 3 Day Interim History: The nursing staff reported the patient was very agitated after lunch, she was in the cellphone and apparently she had an argument over there it was unclear if she was talking over there were she was just delusional. The occupational therapist reported that she has been breaking the crazy is imported into a small cup. She has been refusing all her medications that she slept only 4 hours. The social media assistant reported that she has been evicted from her apartment and she contact the [facility] vocational case manager and apparently she does not have any [place] order or any new other legal paperwork. On interview the patient refused to engage she looks pleasantly confused Mental Status Exam Mental Status Exam Patient Appearance: Appropriate Patient Orientation: Person Level of Consciousness: Awake Patient Behavior: Guarded and Passive Mood Description: Suspicious and Withdrawn Affect Description: Calm Patient Cognition Impaired: Yes Ability to Follow Directions: Fair Speech Pattern: Clear Hallucinations: None Delusions: Not Present Thought Process: Illogical and Evasive Thought Content: positive for [place] and positive for Poverty of Content Judgement: Poor Diagnostics Vital Signs (24Hr): Vital Signs - 24 hr 10/04/22 21:45 Temperature 97.9 F Pulse Rate 75 Blood Pressure 180/74 H Pulse Oximetry 97 BMI result Body Mass Index 23.3 Labs 09/30/22 06:53 Labs: Laboratory Results - last 48 hr 10/04/22 10/05/22 07:19 06:34 POC Glucose 264 H 255 H Medications Medications Current Medications Acetaminophen (Acetaminophen 325 Mg Tablet) 650 mg PO Q6H PRN PRN Reason: Headache/Pain Mild Scale (1-3) Al Hydroxide/Mg Hydroxide (Magnesium Hydrox/Alum Hydrox 30 Ml Oral.Susp) 30 ml PO Q6H PRN PRN Reason: Heartburn/Nausea Amlodipine Besylate (Amlodipine Besylate 5 Mg Tablet) 5 mg PO DAILY MARCOS; Protocol Last Admin: 10/05/22 09:00 Dose: Not Given Aripiprazole (Aripiprazole 10 Mg Tablet) 10 mg PO BEDTIME [facility]OS Last Admin: 10/04/22 21:32 Dose: 10 mg Furosemide (Furosemide 20 Mg Tablet) 20 mg PO DAILY [facility]; Protocol Last Admin: 10/05/22 09:00 Dose: Not Given Hydroxyzine HCl (Hydroxyzine Hcl 25 Mg Tablet) 25 mg PO Q6H PRN PRN Reason: Anxiety Magnesium Hydroxide (Milk Of Magnesia 30 Ml Oral.Susp) 30 ml PO DAILY PRN PRN Reason: Constipation Metformin HCl (Metformin Hcl 500 Mg Tablet) 500 mg PO BIDWM [facility] Last Admin: 10/05/22 07:46 Dose: Not Given Sitagliptin Phosphate (Sitagliptin Phosphate 100 Mg Tablet) 100 mg PO DAILY [facility] Last Admin: 10/05/22 09:00 Dose: Not Given Trazodone HCl (Trazodone Hcl 50 Mg Tablet) 50 mg PO BEDTIME MRX1 PRN PRN Reason: Insomnia Allergies Allergies Allergy/AdvReac Type Severity Reaction Status Date / Time No Known Allergies Allergy Verified 09/29/22 00:49 Assessment & Plan Assessment & Plan (1) Schizophrenia: Status: Acute Code(s): F20.9 - Schizophrenia, unspecified (2) Diabetes mellitus: Status: Acute Code(s): E11.9 - Type 2 diabetes mellitus without complications (3) Hypertension: Status: Acute Code(s): I10 - Essential (primary) hypertension Plan The patient is a 77-year-old female with a prior history of schizophrenia who was brought into the emergency room of another hospital for disorganized beh avior, unable to take care of herself, her home was full with feces is rodents and spoiled food, unable to take care of herself. Since admission she has refused to take medications and she has been grossly disorganized. She is in a 3 day notice. Plan 1. Gather collateral information. 2. We are going to filed for Section 7 and 8 since the patient is unable to take care of herself. 3. We will continue with medical workout. 4. At this moment the patient will be technically homeless and we will need to find her proper housing. shore worker is working with [facility] vocational case manager Reason for continued inpatient stay Substantial Risk for: inability to function, rapid decompensation and med/psych decompensation Time Spent With Patient Time: Total time managing care of this patient today __20__ minutes.
[2022-10-05 18:00] VITALS: BP 165/70; PULSE 90; RESP 18; TEMP 35.9; O2SAT 95
[2022-10-06 06:00] VITALS: BP 125/68; PULSE 82; RESP 16; TEMP 36.2; O2SAT 97
[2022-10-06 06:58] LABS: Glucose, Whole Blood 234 mg/dL (60-115)
[2022-10-06] MEDS: metFORMIN HCl 500 MG TABLET PO (09:17)
[2022-10-06] MEDS: amLODIPine Besylate 5 MG TABLET PO (09:18)
[2022-10-06] MEDS: SITagliptin Phosphate 100 MG TABLET PO (09:18)
[2022-10-06] MEDS: Furosemide 20 MG TABLET PO (09:18)
--- NOTE | 2022-10-06 10:48 | HO.PSYCHPN ---
Subjective Subjective Date of Service: 10/06/22 Reason For Visit: F29 Shizophrenia, F43.10 PTSD Interim History: The nursing staff reported the patient is irritable. She was same with this examiner. Dismissive. Says she doesn't want to take medications although she is intermittently adherent to her medications. Poor sleep. On interview the patient refused to engage. Her POC's have been elevated due to intermittent-adherence to her oral hypoglycemics. Review of Systems Review of Systems Yes all other systems are reviewed and are negative Mental Status Exam Mental Status Exam Narrative: adequately dressed and groomed, wearing street clothes. no PMA/PMR. cooperative. speech incr in amount, nml rate, nml loudness, nml tone, decr latency. thoughts more organized, goal-directed on getting shoes and signing 3-day notice. affect non-labile, constricted, normo-intense. no SI/HI/AVH expressed. Patient Appearance: Appropriate Patient Orientation: Person Level of Consciousness: Awake Patient Behavior: Guarded and Passive Mood Description: Suspicious and Withdrawn Affect Description: Calm Patient Cognition Impaired: Yes Ability to Follow Directions: Fair Speech Pattern: Clear Diagnostics Vital Signs (24Hr): Vital Signs - 24 hr 10/05/22 18:00 10/06/22 06:00 Temperature 96.7 F L 97.2 F Pulse Rate 90 82 Respiratory Rate 18 16 Blood Pressure 165/70 H 125/68 Pulse Oximetry 95 97 Oxygen Delivery Method Room Air Room Air BMI result Body Mass Index 23.3 Labs 09/30/22 06:53 Labs: Laboratory Results - last 48 hr 10/05/22 10/06/22 06:34 06:30 POC Glucose 255 H 234 H Medications Medications Current Medications Acetaminophen (Acetaminophen 325 Mg Tablet) 650 mg PO Q6H PRN PRN Reason: Headache/Pain Mild Scale (1-3) Al Hydroxide/Mg Hydroxide (Magnesium Hydrox/Alum Hydrox 30 Ml Oral.Susp) 30 ml PO Q6H PRN PRN Reason: Heartburn/Nausea Amlodipine Besylate (Amlodipine Besylate 5 Mg Tablet) 5 mg PO DAILY MARCOS; Protocol Last Admin: 10/06/22 09:18 Dose: 5 mg Aripiprazole (Aripiprazole 10 Mg Tablet) 10 mg PO BEDTIME [facility]ARCOS Last Admin: 10/05/22 22:07 Dose: Not Given Furosemide (Furosemide 20 Mg Tablet) 20 mg PO DAILY [facility]; Protocol Last Admin: 10/06/22 09:18 Dose: 20 mg Hydroxyzine HCl (Hydroxyzine Hcl 25 Mg Tablet) 25 mg PO Q6H PRN PRN Reason: Anxiety Magnesium Hydroxide (Milk Of Magnesia 30 Ml Oral.Susp) 30 ml PO DAILY PRN PRN Reason: Constipation Metformin HCl (Metformin Hcl 500 Mg Tablet) 500 mg PO BIDWM [facility] Last Admin: 10/06/22 09:17 Dose: 500 mg Sitagliptin Phosphate (Sitagliptin Phosphate 100 Mg Tablet) 100 mg PO DAILY [facility] Last Admin: 10/06/22 09:18 Dose: 100 mg Trazodone HCl (Trazodone Hcl 50 Mg Tablet) 50 mg PO BEDTIME MRX1 PRN PRN Reason: Insomnia Allergies Allergies Allergy/AdvReac Type Severity Reaction Status Date / Time No Known Allergies Allergy Verified 09/29/22 00:49 Assessment & Plan Assessment & Plan (1) Schizophrenia: Status: Acute Code(s): F20.9 - Schizophrenia, unspecified (2) Diabetes mellitus: Status: Acute Code(s): E11.9 - Type 2 diabetes mellitus without complications (3) Hypertension: Status: Acute Code(s): I10 - Essential (primary) hypertension Plan The patient is a 77-year-old female with a prior history of schizophrenia who was brought into the emergency room of another hospital for disorganized behavior, unable to take care of herself, her home was full with feces is rodents and spoiled food, unable to take care of herself. Since admission she has refused to take medications and she has been grossly disorganized. She is in a 3 day notice. Plan 1. Gather collateral information. 2. We are going to filed for Section 7 and 8 since the patient is unable to take care of herself. 3. We will continue with medical workout. 4. At this moment the patient will be technically homeless and we will need to find her proper housing. foundry worker apprentice is working with [facility] telephonic case manager 10/06: Continue current treatment. Encourage adherence. Monitor for signs of worsening mental status and blood sugars. Reason for continued inpatient stay Substantial Risk for: inability to function, rapid decompensation and med/psych decompensation Time Spent With Patient Time: Total time managing care of this patient today ____ minutes.
[2022-10-06 18:00] VITALS: BP 184/77; PULSE 110; RESP 18; TEMP 36.1; O2SAT 97
[2022-10-06 19:58] LABS: Glucose, Whole Blood 408 mg/dL (60-115)
--- NOTE | 2022-10-06 21:22 | PC.NURSE ---
pt's POC 408@ med pass. pt stated my screen making technician told me not to take diabetes meds . pt has only taken 5 out of 10 metformin doses ordered so far, pt generally medication non compliant. on calls notified, will monitor for increased agitation, confusion delirium and send to medical if needed.
[2022-10-07 04:55] LABS: Glucose, Whole Blood 257 mg/dL (60-115)
[2022-10-07] MEDS: amLODIPine Besylate 5 MG TABLET PO (09:12)
[2022-10-07] MEDS: Furosemide 20 MG TABLET PO (09:12)
[2022-10-07] MEDS: metFORMIN HCl 500 MG TABLET PO (09:12)
[2022-10-07] MEDS: SITagliptin Phosphate 100 MG TABLET PO (09:13)
--- NOTE | 2022-10-07 13:58 | P.PNPSI_ITS ---
Subjective Subjective Date of Service: 10/07/22 Reason For Visit: F29 Shizophrenia, F43.10 PTSD Interim History: The nursing staff reported the patient refused vitals. She is intermittently adherent to medications. Refused Abilify. Refused OHA and POC was elevated to the 400's last night. Also had snacks (reward for winning [employer]). Discussed with staff. Somewhat irritable. She was dismissive. Says she doesn't want to take medications and she is intermittently adherent to her medications. Poor sleep. On interview the patient didn't engage. Review of Systems Review of Systems Yes all other systems are reviewed and are negative Mental Status Exam Mental Status Exam Narrative: adequately dressed and groomed, wearing street clothes. no PMA/PMR. cooperative. speech incr in amount, nml rate, nml loudness, nml tone, decr latency. thoughts more organized, goal-directed on getting shoes and signing 3- day notice. affect non-labile, constricted, normo-intense. no SI/HI/AVH expressed. Patient Appearance: Appropriate Patient Orientation: Person Level of Consciousness: Awake Patient Behavior: Guarded and Passive Mood Description: Suspicious and Withdrawn Affect Description: Calm Patient Cognition Impaired: Yes Ability to Follow Directions: Fair Speech Pattern: Clear Diagnostics Vital Signs (24Hr): Vital Signs - 24 hr 10/06/22 18:00 Temperature 97.0 F Pulse Rate 110 H Respiratory Rate 18 Blood Pressure 184/77 H Pulse Oximetry 97 Oxygen Delivery Method Room Air BMI result Body Mass Index 23.3 Labs 09/30/22 06:53 Labs: Laboratory Results - last 48 hr 10/06/22 10/06/22 10/07/22 06:30 19:41 04:51 POC Glucose 234 H 408 H* 257 H Medications Medications Current Medications Acetaminophen (Acetaminophen 325 Mg Tablet) 650 mg PO Q6H PRN PRN Reason: Headache/Pain Mild Scale (1-3) Al Hydroxide/Mg Hydroxide (Magnesium Hydrox/Alum Hydrox 30 Ml Oral.Susp) 30 ml PO Q6H PRN PRN Reason: Heartburn/Nausea Amlodipine Besylate (Amlodipine Besylate 5 Mg Tablet) 5 mg PO DAILY MARCOS; Protocol Last Admin: 10/07/22 09:12 Dose: 5 mg Aripiprazole (Aripiprazole 10 Mg Tablet) 10 mg PO BEDTIME MARCOS Last Admin: 10/06/22 22:19 Dose: Not Given Furosemide (Furosemide 20 Mg Tablet) 20 mg PO DAILY [facility]; Protocol Last Admin: 10/07/22 09:12 Dose: 20 mg Hydroxyzine HCl (Hydroxyzine Hcl 25 Mg Tablet) 25 mg PO Q6H PRN PRN Reason: Anxiety Magnesium Hydroxide (Milk Of Magnesia 30 Ml Oral.Susp) 30 ml PO DAILY PRN PRN Reason: Constipation Metformin HCl (Metformin Hcl 500 Mg Tablet) 500 mg PO BIDWM [facility] Last Admin: 10/07/22 09:12 Dose: 500 mg Sitagliptin Phosphate (Sitagliptin Phosphate 100 Mg Tablet) 100 mg PO DAILY [facility] Last Admin: 10/07/22 09:13 Dose: 100 mg Trazodone HCl (Trazodone Hcl 50 Mg Tablet) 50 mg PO BEDTIME MRX1 PRN PRN Reason: Insomnia Allergies Allergies Allergy/AdvReac Type Severity Reaction Status Date / Time No Known Allergies Allergy Verified 09/29/22 00:49 Assessment & Plan Assessment & Plan (1) Schizophrenia: Status: Acute Code(s): F20.9 - Schizophrenia, unspecified (2) Diabetes mellitus: Status: Acute Code(s): E11.9 - Type 2 diabetes mellitus without complications (3) Hypertension: Status: Acute Code(s): I10 - Essential (primary) hypertension Plan The patient is a 77-year-old female with a prior history of schizophrenia who was brought into the emergency room of another hospital for disorganized behavior, unable to take care of herself, her home was full with feces is rodents and spoiled food, unable to take care of herself. Since admission she has refused to take medications and she has been grossly disorganized. She is in a 3 day notice. Plan 1. Gather collateral information. 2. We are going to filed for Section 7 and 8 since the patient is unable to take care of herself. 3. We will continue with medical workout. 4. At this moment the patient will be technically homeless and we will need to find her proper housing. psychotherapist social worker is working with [facility] egg caser 10/06: Continue current treatment. Encourage adherence. Monitor for signs of worsening mental status and blood sugars. 10/07: Continue treatment plan. Reason for continued inpatient stay Substantial Risk for: inability to function, rapid decompensation and med/psych decompensation Time Spent With Patient Time: Total time managing care of this patient today ____ minutes.
--- NOTE | 2022-10-07 14:52 | PC.NURSE ---
Patient refused blood draw for creatinine this afternoon.
[2022-10-07 20:00] VITALS: BP 226/93; PULSE 98; RESP 16; TEMP 35.9; O2SAT 100
--- NOTE | 2022-10-07 21:03 | PC.NURSE ---
PT calm and cooperative upon 1:1 approach in the common area,socializing with peers. pt agreed to have vitals taken, BP 1226/93, HR 98 on left arm. this RN attempted to retake pt's BP in the right arm, pt refused, suddenly became irritable, and angry, stating these machines don't work right, you are not doing this again Dr Kyler Cronin notified. per , this RN should attempt to retake BP later when pt is much calmer, otherwise morning again. pt takes amlodipine 5mg in AM.
[2022-10-08 05:12] VITALS: BP 156/64; PULSE 78; RESP 16; TEMP 35.9; O2SAT 97
[2022-10-08 06:35] LABS: Glucose, Whole Blood 377 mg/dL (60-115)
[2022-10-08 11:42] LABS: Glucose, Whole Blood 284 mg/dL (60-115)
--- NOTE | 2022-10-08 11:55 | PC.NURSE ---
PT 1130 poc is 284; refused sliding scale Humalog
--- NOTE | 2022-10-08 16:27 | HO.PSYCHPN ---
Subjective Subjective Date of Service: 10/08/22 Reason For Visit: F29 Shizophrenia, F43.10 PTSD Subjective Notes: Section 7 Interim History: Pt intermittently refuses medications including medication to treat hypertension and DM. Pt tells this director underwriter sales those medication are dangerous. She has been sleeping most of the night. Her SBP in 180's- currently only on amlodipine. She denies SI/HI. She denies VH/AH. Medication Compliance: Yes Review of Systems Review of Systems Yes all other systems are reviewed and are negative Mental Status Exam Mental Status Exam Patient Appearance: Appropriate Patient Orientation: Person Level of Consciousness: Awake Patient Behavior: Guarded and Passive Mood Description: Suspicious and Withdrawn Affect Description: Calm Patient Cognition Impaired: Yes Ability to Follow Directions: Fair Speech Pattern: Clear Diagnostics Vital Signs (24Hr): Vital Signs - 24 hr 10/07/22 20:00 10/08/22 05:12 Temperature 96.6 F L 96.7 F L Pulse Rate 98 78 Respiratory Rate 16 16 Blood Pressure 226/93 H 156/64 H Pulse Oximetry 100 97 Oxygen Delivery Method Room Air Room Air BMI result Body Mass Index 23.3 Labs 09/30/22 06:53 Labs: Laboratory Results - last 48 hr 10/06/22 10/07/22 10/08/22 19:41 04:51 06:22 POC Glucose 408 H* 257 H 377 H* 10/08/22 11:35 POC Glucose 284 H Medications Medications Current Medications Acetaminophen (Acetaminophen 325 Mg Tablet) 650 mg PO Q6H PRN PRN Reason: Headache/Pain Mild Scale (1-3) Al Hydroxide/Mg Hydroxide (Magnesium Hydrox/Alum Hydrox 30 Ml Oral.Susp) 30 ml PO Q6H PRN PRN Reason: Heartburn/Nausea Amlodipine Besylate (Amlodipine Besylate 5 Mg Tablet) 5 mg PO DAILY [facility]; Protocol Last Admin: 10/08/22 09:47 Dose: Not Given Aripiprazole (Aripiprazole 10 Mg Tablet) 10 mg PO BEDTIME [facility] Last Admin: 10/07/22 22:34 Dose: Not Given Furosemide (Furosemide 20 Mg Tablet) 20 mg PO DAILY [facility]; Protocol Last Admin: 10/08/22 09:47 Dose: Not Given Hydroxyzine HCl (Hydroxyzine Hcl 25 Mg Tablet) 25 mg PO Q6H PRN PRN Reason: Anxiety Insulin Human Lispro (Insulin Lispro 100 Unit/Ml 3 Ml Vial) 0 unit SUBCUT QIDACHS [facility]; Protocol Last Admin: 10/08/22 11:55 Dose: Not Given Magnesium Hydroxide (Milk Of Magnesia 30 Ml Oral.Susp) 30 ml PO DAILY PRN PRN Reason: Constipation Metformin HCl (Metformin Hcl 500 Mg Tablet) 500 mg PO BIDWM [facility] Last Admin: 10/08/22 09:47 Dose: Not Given Sitagliptin Phosphate (Sitagliptin Phosphate 100 Mg Tablet) 100 mg PO DAILY [facility] Last Admin: 10/08/22 09:47 Dose: Not Given Trazodone HCl (Trazodone Hcl 50 Mg Tablet) 50 mg PO BEDTIME PRN PRN Reason: Insomnia Allergies Allergies Allergy/AdvReac Type Severity Reaction Status Date / Time No Known Allergies Allergy Verified 09/29/22 00:49 Assessment & Plan Assessment & Plan (1) Schizophrenia: Status: Acute Code(s): F20.9 - Schizophrenia, unspecified (2) Diabetes mellitus: Status: Acute Code(s): E11.9 - Type 2 diabetes mellitus without complications (3) Hypertension: Status: Acute Code(s): I10 - Essential (primary) hypertension Plan The patient is a 77-year-old female with a prior history of schizophrenia who was brought into the emergency room of another hospital for disorganized behavior, unable to take care of herself, her home was full with feces is rodents and spoiled food, unable to take care of herself. Since admission she has refused to take medications and she has been grossly disorganized. She is in a 3 day notice. Plan 1. Gather collateral information. 2. We are going to filed for Section 7 and 8 since the patient is unable to take care of herself. 3. We will continue with medical workout. 4. At this moment the patient will be technically homeless and we will need to find her proper housing. kettle worker is working with [facility] housing case manager 10/06: Continue current treatment. Encourage adherence. Monitor for signs of worsening mental status and blood sugars. 10/07: Continue treatment plan. 10/08 lispro added for coverage due to elevated BS. Increase amlodipine due to hypertension- continue to monitor Reason for continued inpatient stay Substantial Risk for: inability to function Time Spent With Patient Time: Total time managing care of this patient today ____ minutes.
--- NOTE | 2022-10-08 16:56 | PC.NURSE ---
Patient refused POC AND TOLD THIS OCULAR CARE TECHNOLOGIST you can take the Metformin and shove it up your ass. Patient insists she does not take any medications.
[2022-10-08 18:00] VITALS: RESP 16
--- NOTE | 2022-10-08 19:39 | PC.NURSE ---
Patient refused HS POC, refused vitals, refused insulin and Abilify and said I don't take medications, there's nothing wrong with my blood sugar or my head.
[2022-10-09 06:46] LABS: Glucose, Whole Blood 218 mg/dL (60-115)
[2022-10-09 08:15] VITALS: BP 198/78; PULSE 86; RESP 16; TEMP 36.4; O2SAT 98
--- NOTE | 2022-10-09 16:35 | HO.PSYCHPN ---
Subjective Subjective Date of Service: 10/09/22 Reason For Visit: F29 Shizophrenia, F43.10 PTSD Subjective Notes: Section 7 Interim History: Pt very paranoid about medications saying they are mind altering drugs, poison. Pt yelling at peer last night, agitated due to paranoid delusions but able to be redirected. Her systolic BP has been significantly elevated. She denies SI/HI. She asks to be discharged and sent home. Pt not able to care for herself, poor insight and poor memory. Medication Compliance: Yes Review of Systems Review of Systems Yes all other systems are reviewed and are negative Mental Status Exam Mental Status Exam Narrative: adequately dressed and groomed, wearing street clothes. no PMA/PMR. cooperative. speech incr in amount, nml rate, nml loudness, nml tone, decr latency. thoughts more organized, goal-directed on getting shoes and signing 3-day notice. affect non-labile, constricted, normo-intense. no SI/HI/AVH expressed. Diagnostics Vital Signs (24Hr): Vital Signs - 24 hr 10/08/22 18:00 10/09/22 08:15 Temperature 97.5 F Pulse Rate 86 Respiratory Rate 16 16 Blood Pressure 198/78 H Pulse Oximetry 98 Oxygen Delivery Method Room Air BMI result Body Mass Index 23.3 Labs 09/30/22 06:53 Labs: Laboratory Results - last 48 hr 10/08/22 10/08/22 10/09/22 06:22 11:35 06:26 POC Glucose 377 H* 284 H 218 H Medications Medications Current Medications Acetaminophen (Acetaminophen 325 Mg Tablet) 650 mg PO Q6H PRN PRN Reason: Headache/Pain Mild Scale (1-3) Al Hydroxide/Mg Hydroxide (Magnesium Hydrox/Alum Hydrox 30 Ml Oral.Susp) 30 ml PO Q6H PRN PRN Reason: Heartburn/Nausea Amlodipine Besylate (Amlodipine Besylate 2.5 Mg Tablet) 7.5 mg PO DAILY [facility]; Protocol Last Admin: 10/09/22 08:18 Dose: Not Given Aripiprazole (Aripiprazole 10 Mg Tablet) 10 mg PO BEDTIME [facility] Last Admin: 10/08/22 19:38 Dose: Not Given Furosemide (Furosemide 20 Mg Tablet) 20 mg PO DAILY [facility]; Protocol Last Admin: 08/29/23 08:18 Dose: Not Given Hydroxyzine HCl (Hydroxyzine Hcl 25 Mg Tablet) 25 mg PO Q6H PRN PRN Reason: Anxiety Insulin Human Lispro (Insulin Lispro 100 Unit/Ml 3 Ml Vial) 0 unit SUBCUT QIDACHS [facility]; Protocol Last Admin: 10/09/22 11:39 Dose: Not Given Magnesium Hydroxide (Milk Of Magnesia 30 Ml Oral.Susp) 30 ml PO DAILY PRN PRN Reason: Constipation Metformin HCl (Metformin Hcl 500 Mg Tablet) 500 mg PO BIDWM [facility] Last Admin: 10/09/22 08:18 Dose: Not Given Sitagliptin Phosphate (Sitagliptin Phosphate 100 Mg Tablet) 100 mg PO DAILY [facility] Last Admin: 10/09/22 08:18 Dose: Not Given Trazodone HCl (Trazodone Hcl 50 Mg Tablet) 50 mg PO BEDTIME PRN PRN Reason: Insomnia Allergies Allergies Allergy/AdvReac Type Severity Reaction Status Date / Time No Known Allergies Allergy Verified 09/29/22 00:49 Assessment & Plan Assessment & Plan (1) Schizophrenia: Status: Acute Code(s): F20.9 - Schizophrenia, unspecified (2) Diabetes mellitus: Status: Acute Code(s): E11.9 - Type 2 diabetes mellitus without complications (3) Hypertension: Status: Acute Code(s): I10 - Essential (primary) hypertension Plan The patient is a 77-year-old female with a prior history of schizophrenia who was brought into the emergency room of another hospital for disorganized behavior, unable to take care of herself, her home was full with feces is rodents and spoiled food, unable to take care of herself. Since admission she has refused to take medications and she has been grossly disorganized. She is in a 3 day notice. Plan 1. Gather collateral information. 2. We are going to filed for Section 7 and 8 since the patient is unable to take care of herself. 3. We will continue with medical workout. 4. At this moment the patient will be technically homeless and we will need to find her proper housing. floor worker is working with [facility] spring encaser 10/06: Continue current treatment. Encourage adherence. Monitor for signs of worsening mental status and blood sugars. 10/07: Continue treatment plan. 10/08 lispro added for coverage due to elevated BS. Increase amlodipine due to hypertension- continue to monitor 10/09 continue tx, pending court. Reason for continued inpatient stay Substantial Risk for: inability to function Time Spent With Patient Time: Total time managing care of this patient today ____ minutes.
[2022-10-09 20:11] LABS: Glucose, Whole Blood 318 mg/dL (60-115)
[2022-10-10 07:47] LABS: Glucose, Whole Blood 301 mg/dL (60-115)
--- NOTE | 2022-10-10 17:16 | PC.NURSE ---
Patient continues to refuse all medications, vital signs and POC x2. E.H SALES AND LEASING AGENT updated, no new orders.
[2022-10-10 18:00] VITALS: BP 176/70; PULSE 94; RESP 18; TEMP 36.7; O2SAT 96
--- NOTE | 2022-10-10 21:43 | P.PNPSI_ITS ---
Subjective Subjective Date of Service: 10/10/22 Reason For Visit: F29 Shizophrenia, F43.10 PTSD Subjective Notes: Section 7 Interim History: Pt continues to present as very paranoid, declining to take medications including medical ones stating she does not have hypertension, or DM. She also declines antipsychotic. SBP 180's, BS 300's She denies SI/HI. She slept most of the night. Medication Compliance: No Review of Systems Review of Systems Yes all other systems are reviewed and are negative Mental Status Exam Mental Status Exam Patient Appearance: Appropriate Patient Orientation: Person Level of Consciousness: Awake Patient Behavior: Guarded and Passive Mood Description: Suspicious and Withdrawn Affect Description: Calm Patient Cognition Impaired: Yes Ability to Follow Directions: Fair Speech Pattern: Clear Diagnostics Vital Signs (24Hr): BMI result Body Mass Index 23.3 Labs 09/30/22 06:53 Labs: Laboratory Results - last 48 hr 10/09/22 10/09/22 10/10/22 06:26 16:13 07:42 POC Glucose 218 H 318 H 301 H Medications Medications Current Medications Acetaminophen (Acetaminophen 325 Mg Tablet) 650 mg PO Q6H PRN PRN Reason: Headache/Pain Mild Scale (1-3) Al Hydroxide/Mg Hydroxide (Magnesium Hydrox/Alum Hydrox 30 Ml Oral.Susp) 30 ml PO Q6H PRN PRN Reason: Heartburn/Nausea Amlodipine Besylate (Amlodipine Besylate 2.5 Mg Tablet) 7.5 mg PO DAILY [facility]; Protocol Last Admin: 10/10/22 09:12 Dose: Not Given Aripiprazole (Aripiprazole 10 Mg Tablet) 10 mg PO BEDTIME [facility] Last Admin: 10/09/22 20:09 Dose: Not Given Furosemide (Furosemide 20 Mg Tablet) 20 mg PO DAILY [facility]; Protocol Last Admin: 10/10/22 09:12 Dose: Not Given Hydroxyzine HCl (Hydroxyzine Hcl 25 Mg Tablet) 25 mg PO Q6H PRN PRN Reason: Anxiety Insulin Human Lispro (Insulin Lispro 100 Unit/Ml 3 Ml Vial) 0 unit SUBCUT QIDACHS [facility]; Protocol Last Admin: 10/10/22 16:42 Dose: Not Given Magnesium Hydroxide (Milk Of Magnesia 30 Ml Oral.Susp) 30 ml PO DAILY PRN PRN Reason: Constipation Metformin HCl (Metformin Hcl 500 Mg Tablet) 500 mg PO BIDWM [facility] Last Admin: 10/10/22 17:10 Dose: Not Given Sitagliptin Phosphate (Sitagliptin Phosphate 100 Mg Tablet) 100 mg PO DAILY [facility] Last Admin: 10/10/22 09:12 Dose: Not Given Trazodone HCl (Trazodone Hcl 50 Mg Tablet) 50 mg PO BEDTIME PRN PRN Reason: Insomnia Allergies Allergies Allergy/AdvReac Type Severity Reaction Status Date / Time No Known Allergies Allergy Verified 09/29/22 00:49 Assessment & Plan Assessment & Plan (1) Schizophrenia: Status: Acute Code(s): F20.9 - Schizophrenia, unspecified (2) Diabetes mellitus: Status: Acute Code(s): E11.9 - Type 2 diabetes mellitus without complications (3) Hypertension: Status: Acute Code(s): I10 - Essential (primary) hypertension Plan The patient is a 77-year-old female with a prior history of schizophrenia who was brought into the emergency room of another hospital for disorganized behavior, unable to take care of herself, her home was full with feces is rodents and spoiled food, unable to take care of herself. Since admission she has refused to take medications and she has been grossly disorganized. She is in a 3 day notice. Plan 1. Gather collateral information. 2. We are going to filed for Section 7 and 8 since the patient is unable to take care of herself. 3. We will continue with medical workout. 4. At this moment the patient will be technically homeless and we will need to find her proper housing. child abuse worker is working with [facility] case management specialist 10/06: Continue current treatment. Encourage adherence. Monitor for signs of worsening mental status and blood sugars. 10/07: Continue treatment plan. 10/08 lispro added for coverage due to elevated BS. Increase amlodipine due to hypertension- continue to monitor 10/09 continue tx, pending court. 10/10 continues to present paranoid, declines medical and psychiatric medications. Reason for continued inpatient stay Substantial Risk for: inability to function Time Spent With Patient Time: Total time managing care of this patient today ____ minutes.
[2022-10-10 22:07] LABS: Glucose, Whole Blood 332 mg/dL (60-115)
[2022-10-11 06:00] VITALS: BP 151/91; PULSE 88; RESP 16; TEMP 36.6; O2SAT 95
[2022-10-11 06:53] LABS: Glucose, Whole Blood 301 mg/dL (60-115)
[2022-10-11 07:00] VITALS: BMI 22.1
[2022-10-11 18:00] VITALS: BP 169/70; PULSE 87; TEMP 36; O2SAT 96
--- NOTE | 2022-10-11 20:22 | HO.PSYCHPN ---
Subjective Subjective Date of Service: 10/11/22 Reason For Visit: F29 Shizophrenia, F43.10 PTSD Subjective Notes: Section 7 Interim History: Pt continues to present as very paranoid, declining to take medications including medical ones stating she does not have hypertension, or DM. She also declines antipsychotic. SBP 180's, BS 300's She denies SI/HI. She slept most of the night. Review of Systems Review of Systems Yes all other systems are reviewed and are negative Mental Status Exam Mental Status Exam Patient Appearance: Appropriate Patient Orientation: Person Level of Consciousness: Awake Patient Behavior: Guarded and Passive Mood Description: Suspicious and Withdrawn Affect Description: Calm Patient Cognition Impaired: Yes Ability to Follow Directions: Fair Speech Pattern: Clear Diagnostics Vital Signs (24Hr): Vital Signs - 24 hr 10/11/22 06:00 Temperature 97.8 F Pulse Rate 88 Respiratory Rate 16 Blood Pressure 151/91 H Pulse Oximetry 95 Oxygen Delivery Method Room Air BMI result Body Mass Index 22.1 Labs 09/30/22 06:53 Labs: Laboratory Results - last 48 hr 10/10/22 10/10/22 10/11/22 07:42 22:03 06:43 POC Glucose 301 H 332 H 301 H Medications Medications Current Medications Acetaminophen (Acetaminophen 325 Mg Tablet) 650 mg PO Q6H PRN PRN Reason: Headache/Pain Mild Scale (1-3) Al Hydroxide/Mg Hydroxide (Magnesium Hydrox/Alum Hydrox 30 Ml Oral.Susp) 30 ml PO Q6H PRN PRN Reason: Heartburn/Nausea Amlodipine Besylate (Amlodipine Besylate 2.5 Mg Tablet) 7.5 mg PO DAILY [facility]; Protocol Last Admin: 10/11/22 09:42 Dose: Not Given Aripiprazole (Aripiprazole 10 Mg Tablet) 10 mg PO BEDTIME [facility] Last Admin: 10/11/22 00:33 Dose: Not Given Furosemide (Furosemide 20 Mg Tablet) 20 mg PO DAILY [facility]; Protocol Last Admin: 10/11/22 09:42 Dose: Not Given Hydroxyzine HCl (Hydroxyzine Hcl 25 Mg Tablet) 25 mg PO Q6H PRN PRN Reason: Anxiety Insulin Human Lispro (Insulin Lispro 100 Unit/Ml 3 Ml Vial) 0 unit SUBCUT QIDACHS [facility]; Protocol Last Admin: 10/11/22 16:45 Dose: Not Given Magnesium Hydroxide (Milk Of Magnesia 30 Ml Oral.Susp) 30 ml PO DAILY PRN PRN Reason: Constipation Metformin HCl (Metformin Hcl 500 Mg Tablet) 500 mg PO BIDWM [facility] Last Admin: 10/11/22 17:25 Dose: Not Given Sitagliptin Phosphate (Sitagliptin Phosphate 100 Mg Tablet) 100 mg PO DAILY [facility] Last Admin: 10/11/22 09:42 Dose: Not Given Trazodone HCl (Trazodone Hcl 50 Mg Tablet) 50 mg PO BEDTIME PRN PRN Reason: Insomnia Allergies Allergies Allergy/AdvReac Type Severity Reaction Status Date / Time No Known Allergies Allergy Verified 09/29/22 00:49 Assessment & Plan Assessment & Plan (1) Schizophrenia: Status: Acute Code(s): F20.9 - Schizophrenia, unspecified (2) Diabetes mellitus: Status: Acute Code(s): E11.9 - Type 2 diabetes mellitus without complications (3) Hypertension: Status: Acute Code(s): I10 - Essential (primary) hypertension Plan The patient is a 77-year-old female with a prior history of schizophrenia who was brought into the emergency room of another hospital for disorganized behavior, unable to take care of herself, her home was full with feces is rodents and spoiled food, unable to take care of herself. Since admission she has refused to take medications and she has been grossly disorganized. She is in a 3 day notice. Plan 1. Gather collateral information. 2. We are going to filed for Section 7 and 8 since the patient is unable to take care of herself. 3. We will continue with medical workout. 4. At this moment the patient will be technically homeless and we will need to find her proper housing. clothing worker is working with [facility] family caseworker 10/06: Continue current treatment. Encourage adherence. Monitor for signs of worsening mental status and blood sugars. 10/07: Continue treatment plan. 10/08 lispro added for coverage due to elevated BS. Increase amlodipine due to hypertension- continue to monitor 10/09 continue tx, pending court. 10/10 continues to present paranoid, declines medical and psychiatric medications. 10/[address]. Reason for continued inpatient stay Substantial Risk for: inability to function Time Spent With Patient Time: Total time managing care of this patient today ____ minutes.
[2022-10-12 05:08] LABS: Glucose, Whole Blood 314 mg/dL (60-115)
[2022-10-12 07:45] VITALS: BP 175/69; PULSE 77; RESP 18; TEMP 37; O2SAT 99
[2022-10-12] MEDS: amLODIPine Besylate 2.5 MG TABLET 7.5 MG PO ×2 (11:10→11:12)
--- NOTE | 2022-10-12 15:35 | P.PNPSI_ITS ---
Subjective Subjective Date of Service: 10/12/22 Reason For Visit: F29 Shizophrenia, F43.10 PTSD Subjective Notes: Section 7 Interim History: Pt reports that that elevated blood sugar that RN reports are not accurate because she knows that nurses are using someone's else blood or a red substance, not my blood. She also reports nurses are changing her number to make it seem like she has hypertension. 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 Pt allowed this program writer to recheck BP, pt stated she trusted this program writer and finally agreed to take amlodipine 7.5mg. At the time her SBP 200. BS continues to be in 300's pt refuses metformin and lispro. Review of Systems Review of Systems Yes all other systems are reviewed and are negative Mental Status Exam Mental Status Exam Narrative: adequately dressed and groomed, wearing street clothes. no PMA/PMR. cooperative. speech incr in amount, nml rate, nml loudness, nml tone, decr latency. thoughts more organized, goal-directed on getting shoes and signing 3- day notice. affect non-labile, constricted, normo-intense. no SI/HI/AVH expressed. Diagnostics Vital Signs (24Hr): Vital Signs - 24 hr 10/11/22 18:00 10/12/22 07:45 Temperature 96.8 F 98.6 F Pulse Rate 87 77 Respiratory Rate 18 Blood Pressure 169/70 H 175/69 H Pulse Oximetry 96 99 Oxygen Delivery Method Room Air Room Air BMI result Body Mass Index 22.1 Labs 09/30/22 06:53 Labs: Laboratory Results - last 48 hr 10/10/22 10/11/22 10/12/22 22:03 06:43 05:05 POC Glucose 332 H 301 H 314 H Medications Medications Current Medications Acetaminophen (Acetaminophen 325 Mg Tablet) 650 mg PO Q6H PRN PRN Reason: Headache/Pain Mild Scale (1-3) Al Hydroxide/Mg Hydroxide (Magnesium Hydrox/Alum Hydrox 30 Ml Oral.Susp) 30 ml PO Q6H PRN PRN Reason: Heartburn/Nausea Amlodipine Besylate (Amlodipine Besylate 2.5 Mg Tablet) 7.5 mg PO DAILY [facility]; Protocol Last Admin: 10/12/22 11:15 Dose: Not Given Aripiprazole (Aripiprazole 10 Mg Tablet) 10 mg PO BEDTIME [facility] Last Admin: 10/11/22 20:37 Dose: Not Given Furosemide (Furosemide 20 Mg Tablet) 20 mg PO DAILY [facility]; Protocol Last Admin: 10/12/22 08:43 Dose: Not Given Hydroxyzine HCl (Hydroxyzine Hcl 25 Mg Tablet) 25 mg PO Q6H PRN PRN Reason: Anxiety Insulin Human Lispro (Insulin Lispro 100 Unit/Ml 3 Ml Vial) 0 unit SUBCUT QIDACHS [facility]; Protocol Last Admin: 10/12/22 11:53 Dose: Not Given Magnesium Hydroxide (Milk Of Magnesia 30 Ml Oral.Susp) 30 ml PO DAILY PRN PRN Reason: Constipation Metformin HCl (Metformin Hcl 500 Mg Tablet) 500 mg PO BIDWM [facility] Last Admin: 10/12/22 08:41 Dose: Not Given Sitagliptin Phosphate (Sitagliptin Phosphate 100 Mg Tablet) 100 mg PO DAILY [facility] Last Admin: 10/12/22 08:44 Dose: Not Given Trazodone HCl (Trazodone Hcl 50 Mg Tablet) 50 mg PO BEDTIME PRN PRN Reason: Insomnia Allergies Allergies Allergy/AdvReac Type Severity Reaction Status Date / Time No Known Allergies Allergy Verified 09/29/22 00:49 Assessment & Plan Assessment & Plan (1) Schizophrenia: Status: Acute Code(s): F20.9 - Schizophrenia, unspecified (2) Diabetes mellitus: Status: Acute Code(s): E11.9 - Type 2 diabetes mellitus without complications (3) Hypertension: Status: Acute Code(s): I10 - Essential (primary) hypertension Plan The patient is a 77-year-old female with a prior history of schizophrenia who was brought into the emergency room of another hospital for disorganized behavior, unable to take care of herself, her home was full with feces is rodents and spoiled food, unable to take care of herself. Since admission she has refused to take medications and she has been grossly disorganized. She is in a 3 day notice. Plan 1. Gather collateral information. 2. We are going to filed for Section 7 and 8 since the patient is unable to take care of herself. 3. We will continue with medical workout. 4. At this moment the patient will be technically homeless and we will need to find her proper housing. table worker is working with [facility] test case developer 10/06: Continue current treatment. Encourage adherence. Monitor for signs of worsening mental status and blood sugars. 10/07: Continue treatment plan. 10/08 lispro added for coverage due to elevated BS. Increase amlodipine due to hypertension- continue to monitor 10/09 continue tx, pending court. 10/10 continues to present paranoid, declines medical and psychiatric medications. 10/[address] hearing. 10/[address] Reason for continued inpatient stay Substantial Risk for: inability to function Time Spent With Patient Time: Total time managing care of this patient today ____ minutes.
[2022-10-12 16:36] LABS: Glucose, Whole Blood 336 mg/dL (60-115)
[2022-10-12 18:00] VITALS: BP 149/66; PULSE 84; TEMP 36.2; O2SAT 96
[2022-10-12 20:41] LABS: Glucose, Whole Blood 341 mg/dL (60-115)
--- NOTE | 2022-10-12 22:41 | PC.NURSE ---
pt allowed POC, but did not want insulin.
[2022-10-13 06:59] LABS: Glucose, Whole Blood 296 mg/dL (60-115)
[2022-10-13] MEDS: SITagliptin Phosphate 100 MG TABLET PO (09:04)
[2022-10-13 11:34] LABS: Glucose, Whole Blood 302 mg/dL (60-115)
[2022-10-13 16:16] LABS: Glucose, Whole Blood 337 mg/dL (60-115)
--- NOTE | 2022-10-13 16:46 | P.PNPSI_ITS ---
Subjective Subjective Date of Service: 10/13/22 Reason For Visit: F29 Nathlaia, F43.10 PTSD Interim History: Met with patient; discussed with team Patient refusing diabetic medication, blood pressure medication; she did take Januvia Patient mostly pleasant with conventional underwriter on approach though with an irritable edge. She says that she is doing good and asks conventional underwriter the same. 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 Instructional Manager explained that her blood sugars are high and which she be willing to take her metformin. Patient said she does not have diabetes, her sugars are only high because she ate something sweet and would not here otherwise. Mental Status Exam Mental Status Exam Narrative: adequately dressed and groomed, wearing street clothes. no PMA/PMR. cooperative. speech incr in amount, nml rate, nml loudness, nml tone, decr latency. thought process goal-directed; thought content seems WNL; Affect calm; no SI/HI/AVH. Insight and judgment are impaired, patient refusing antihyperten sives and diabetic medication. Diagnostics Vital Signs (24Hr): Vital Signs - 24 hr 10/12/22 18:00 Temperature 97.1 F Pulse Rate 84 Blood Pressure 149/66 H Pulse Oximetry 96 Oxygen Delivery Method Room Air BMI result Body Mass Index 22.1 Labs 09/30/22 06:53 Labs: Laboratory Results - last 48 hr 10/12/22 10/12/22 10/12/22 05:05 16:31 20:36 POC Glucose 314 H 336 H 341 H 10/13/22 10/13/22 10/13/22 06:54 11:30 16:11 POC Glucose 296 H 302 H 337 H Medications Medications Current Medications Acetaminophen (Acetaminophen 325 Mg Tablet) 650 mg PO Q6H PRN PRN Reason: Headache/Pain Mild Scale (1-3) Al Hydroxide/Mg Hydroxide (Magnesium Hydrox/Alum Hydrox 30 Ml Oral.Susp) 30 ml PO Q6H PRN PRN Reason: Heartburn/Nausea Amlodipine Besylate (Amlodipine Besylate 2.5 Mg Tablet) 7.5 mg PO DAILY [facility]; Protocol Last Admin: 10/12/22 11:15 Dose: Not Given Aripiprazole (Aripiprazole 10 Mg Tablet) 10 mg PO BEDTIME [facility] Last Admin: 10/12/22 20:41 Dose: Not Given Furosemide (Furosemide 20 Mg Tablet) 20 mg PO DAILY [facility]; Protocol Last Admin: 10/13/22 09:05 Dose: Not Given Hydroxyzine HCl (Hydroxyzine Hcl 25 Mg Tablet) 25 mg PO Q6H PRN PRN Reason: Anxiety Insulin Human Lispro (Insulin Lispro 100 Unit/Ml 3 Ml Vial) 0 unit SUBCUT QIDACHS [facility]; Protocol Last Admin: 10/13/22 16:29 Dose: Not Given Magnesium Hydroxide (Milk Of Magnesia 30 Ml Oral.Susp) 30 ml PO DAILY PRN PRN Reason: Constipation Metformin HCl (Metformin Hcl 500 Mg Tablet) 500 mg PO BIDWM [facility] Last Admin: 10/13/22 16:29 Dose: Not Given Sitagliptin Phosphate (Sitagliptin Phosphate 100 Mg Tablet) 100 mg PO DAILY [facility] Last Admin: 10/13/22 09:04 Dose: 100 mg Trazodone HCl (Trazodone Hcl 50 Mg Tablet) 50 mg PO BEDTIME PRN PRN Reason: Insomnia Allergies Allergies Allergy/AdvReac Type Severity Reaction Status Date / Time No Known Allergies Allergy Verified 09/29/22 00:49 Assessment & Plan Assessment & Plan (1) Schizophrenia: Status: Acute Code(s): F20.9 - Schizophrenia, unspecified (2) Diabetes mellitus: Status: Acute Code(s): E11.9 - Type 2 diabetes mellitus without complications (3) Hypertension: Status: Acute Code(s): I10 - Essential (primary) hypertension Plan The patient is a 77-year-old female with a prior history of schizophrenia who w as brought into the emergency room of another hospital for disorganized behavior, unable to take care of herself, her home was full with feces is rodents and spoiled food, unable to take care of herself. Since admission she has refused to take medications and she has been grossly disorganized. She is in a 3 day notice. Plan 1. Gather collateral information. 2. We are going to filed for Section 7 and 8 since the patient is unable to take care of herself. 3. We will continue with medical workout. 4. At this moment the patient will be technically homeless and we will need to find her proper housing. workers compensation specialist is working with [facility] rifle case repairer 10/06: Continue current treatment. Encourage adherence. Monitor for signs of worsening mental status and blood sugars. 10/07: Continue treatment plan. 10/08 lispro added for coverage due to elevated BS. Increase amlodipine due to hypertension- continue to monitor 10/09 continue tx, pending court. 10/10 continues to present paranoid, declines medical and psychiatric medications. 10/[address] hearing. 10/[address] 10/13 patient refusing antihypertensive and diabetic medication; she says she does not have diabetes at all; conventional underwriter offered a different medication other than metformin however patient refused. Patient educated on: diagnosis, medication risk/benefits and medical condition Informed Consent: does not understand Reason for continued inpatient stay Substantial Risk for: inability to function Time Spent With Patient Time: Total time managing care of this patient today ____ minutes.
[2022-10-13 17:30] VITALS: BP 108/57; PULSE 76; RESP 16; TEMP 37.1; O2SAT 97
--- NOTE | 2022-10-13 17:32 | PC.NURSE ---
Patient seen by Dr Atkinson, new orders obtained to stop some medications due to change in mental status and mobility. Last vital stable at 1730 [id number]/57 with O2 Sat 97% on room air. Will also check labs.
--- NOTE | 2022-10-13 20:27 | PC.NURSE ---
pt refused abilify and POC. I am not taking it. it's new one, never take that before. this nurse tried twice to offer these meds. resist to take the med. dr. Harrington notified. will CONT to monitor any changes.
[2022-10-13 20:40] VITALS: BP 187/82; PULSE 86; RESP 17; TEMP 37; O2SAT 100
[2022-10-13 21:58] LABS: Glucose, Whole Blood 387 mg/dL (60-115)
--- NOTE | 2022-10-13 22:33 | PC.NURSE ---
pt agreed to check poc 387 but refused insulin bc against her belief shinto. notified. no action needed it at this time. will CONT monitor s/s and any changes.
[2022-10-14 06:00] VITALS: BP 158/64; PULSE 76; RESP 18; TEMP 36.3; O2SAT 100
[2022-10-14 06:47] LABS: Glucose, Whole Blood 383 mg/dL (60-115)
[2022-10-14] MEDS: SITagliptin Phosphate 100 MG TABLET PO (08:24)
[2022-10-14] MEDS: amLODIPine Besylate 2.5 MG TABLET 7.5 MG PO (08:24)
[2022-10-14] MEDS: Furosemide 20 MG TABLET PO (08:25)
[2022-10-14] MEDS: metFORMIN HCl 500 MG TABLET PO ×2 (08:26→16:57)
--- NOTE | 2022-10-14 10:41 | P.PNPSI_ITS ---
Subjective Subjective Date of Service: 10/14/22 Reason For Visit: F29 Shizophrenia, F43.10 PTSD Interim History: Met with patient; discussed with team Patient reports that she is good and that she slept well. No complaints and no request. Again elevated blood sugar however today patient was willing to take take metformin and blood pressure medications. However she refused sliding scale insulin. Social in milieu Mental Status Exam Mental Status Exam Narrative: adequately dressed and groomed, wearing street clothes. no PMA/PMR. cooperative. speech incr in amount, nml rate, nml loudness, nml tone, decr latency. thought process goal-directed; thought content seems WNL; Affect calm; no SI/HI/AVH. Insight and judgment are impaired, patient intermittently refusing antihypertensives and diabetic medication. Diagnostics Vital Signs (24Hr): Vital Signs - 24 hr 10/13/22 17:30 10/13/22 20:40 10/14/22 06:00 Temperature 98.7 F 98.6 F 97.3 F Pulse Rate 76 86 76 Respiratory Rate 16 17 18 Blood Pressure 108/57 L 187/82 H 158/64 H Pulse Oximetry 97 100 100 Oxygen Delivery Method Room Air Room Air Room Air BMI result Body Mass Index 22.1 Labs 09/30/22 06:53 Labs: Laboratory Results - last 48 hr 10/12/22 10/12/22 10/13/22 16:31 20:36 06:54 POC Glucose 336 H 341 H 296 H 10/13/22 10/13/22 10/13/22 11:30 16:11 21:52 POC Glucose 302 H 337 H 387 H* 10/14/22 06:43 POC Glucose 383 H* Medications Medications Current Medications Acetaminophen (Acetaminophen 325 Mg Tablet) 650 mg PO Q6H PRN PRN Reason: Headache/Pain Mild Scale (1-3) Al Hydroxide/Mg Hydroxide (Magnesium Hydrox/Alum Hydrox 30 Ml Oral.Susp) 30 ml PO Q6H PRN PRN Reason: Heartburn/Nausea Amlodipine Besylate (Amlodipine Besylate 2.5 Mg Tablet) 7.5 mg PO DAILY [facility]; Protocol Last Admin: 10/14/22 08:24 Dose: 7.5 mg Aripiprazole (Aripiprazole 10 Mg Tablet) 10 mg PO BEDTIME [facility] Last Admin: 10/13/22 20:27 Dose: Not Given Furosemide (Furosemide 20 Mg Tablet) 20 mg PO DAILY [facility]; Protocol Last Admin: 10/14/22 08:25 Dose: 20 mg Hydroxyzine HCl (Hydroxyzine Hcl 25 Mg Tablet) 25 mg PO Q6H PRN PRN Reason: Anxiety Insulin Human Lispro (Insulin Lispro 100 Unit/Ml 3 Ml Vial) 0 unit SUBCUT QIDACHS [facility]; Protocol Last Admin: 10/14/22 08:27 Dose: Not Given Magnesium Hydroxide (Milk Of Magnesia 30 Ml Oral.Susp) 30 ml PO DAILY PRN PRN Reason: Constipation Metformin HCl (Metformin Hcl 500 Mg Tablet) 500 mg PO BIDWM [facility] Last Admin: 10/14/22 08:26 Dose: 500 mg Sitagliptin Phosphate (Sitagliptin Phosphate 100 Mg Tablet) 100 mg PO DAILY [facility] Last Admin: 10/14/22 08:24 Dose: 100 mg Trazodone HCl (Trazodone Hcl 50 Mg Tablet) 50 mg PO BEDTIME PRN PRN Reason: Insomnia Allergies Allergies Allergy/AdvReac Type Severity Reaction Status Date / Time No Known Allergies Allergy Verified 09/29/22 00:49 Assessment & Plan Assessment & Plan (1) Schizophrenia: Status: Acute Code(s): F20.9 - Schizophrenia, unspecified (2) Diabetes mellitus: Status: Acute Code(s): E11.9 - Type 2 diabetes mellitus without complications (3) Hypertension: Status: Acute Code(s): I10 - Essential (primary) hypertension Plan The patient is a 77-year-old female with a prior history of schizophrenia who was brought into the emergency room of another hospital for disorganized behavior, unable to take care of herself, her home was full with feces is rodents and spoiled food, unable to take care of herself. Since admission she h as refused to take medications and she has been grossly disorganized. She is in a 3 day notice. Plan 1. Gather collateral information. 2. We are going to filed for Section 7 and 8 since the patient is unable to take care of herself. 3. We will continue with medical workout. 4. At this moment the patient will be technically homeless and we will need to find her proper housing. spray worker is working with [facility] bilingual case manager 10/06: Continue current treatment. Encourage adherence. Monitor for signs of worsening mental status and blood sugars. 10/07: Continue treatment plan. 10/08 lispro added for coverage due to elevated BS. Increase amlodipine due to hypertension- continue to monitor 10/09 continue tx, pending court. 10/10 continues to present paranoid, declines medical and psychiatric m edications. 10/[address] hearing. 10/[address] 10/13 patient refusing antihypertensive and diabetic medication; she says she does not have diabetes at all; group underwriter offered a different medication other than metformin however patient refused. 10/14 no change in presentation however patient did take medication more today. However she continued to refuse sliding scale insulin Reason for continued inpatient stay Substantial Risk for: inability to function Time Spent With Patient Time: Total time managing care of this patient today ____ minutes.
[2022-10-14 11:27] LABS: Glucose, Whole Blood 261 mg/dL (60-115)
[2022-10-14 16:29] LABS: Glucose, Whole Blood 329 mg/dL (60-115)
[2022-10-14 18:00] VITALS: BP 123/87; PULSE 81; RESP 18; TEMP 36.6; O2SAT 97
[2022-10-14 19:49] LABS: Glucose, Whole Blood 335 mg/dL (60-115)
[2022-10-14] MEDS: ARIPiprazole 10 MG TABLET PO (20:13)
[2022-10-15] MEDS: Acetaminophen 325 MG TABLET 650 MG PO (04:23)
[2022-10-15 06:49] LABS: Glucose, Whole Blood 375 mg/dL (60-115)
[2022-10-15 08:15] VITALS: BP 144/58; PULSE 70; RESP 20; TEMP 35.9; O2SAT 98
[2022-10-15] MEDS: metFORMIN HCl 500 MG TABLET PO ×2 (08:18→16:34)
[2022-10-15] MEDS: amLODIPine Besylate 2.5 MG TABLET 7.5 MG PO (08:19)
[2022-10-15] MEDS: SITagliptin Phosphate 100 MG TABLET PO (08:19)
[2022-10-15] MEDS: Furosemide 20 MG TABLET PO (08:19)
--- NOTE | 2022-10-15 10:33 | P.PNPSI_ITS ---
Subjective Subjective Date of Service: 10/15/22 Reason For Visit: F29 Shizophrenia, F43.10 PTSD Interim History: Met with Patient; discussed with team pt more guarded today; on inquiry pt told conventional underwriter she's been keeping more to herself, worried that people are going to try and make her take more medications ...add more pills. pt did take medications today, however refused sliding scale insulin and remains hyperglycemic Mental Status Exam Mental Status Exam Narrative: adequately dressed and groomed, wearing street clothes. no PMA/PMR. cooperative. speech incr in amount, nml rate, nml loudness, nml tone, decr latency. thought process goal-directed; thought content seems WNL; Affect calm; no SI/HI/AVH. Insight and judgment are impaired, patient intermittently refusing antihypertensives and diabetic medication. Diagnostics Vital Signs (24Hr): Vital Signs - 24 hr 10/14/22 18:00 10/15/22 08:15 Temperature 98 F 96.7 F L Pulse Rate 81 70 Respiratory Rate 18 20 Blood Pressure 123/87 144/58 H Pulse Oximetry 97 98 Oxygen Delivery Method Room Air Room Air BMI result Body Mass Index 22.1 Labs 09/30/22 06:53 Labs: Laboratory Results - last 48 hr 10/13/22 10/13/22 10/13/22 11:30 16:11 21:52 POC Glucose 302 H 337 H 387 H* 10/14/22 10/14/22 10/14/22 06:43 11:19 16:25 POC Glucose 383 H* 261 H 329 H 10/14/22 10/15/22 19:45 06:44 POC Glucose 335 H 375 H* Medications Medications Current Medications Acetaminophen (Acetaminophen 325 Mg Tablet) 650 mg PO Q6H PRN PRN Reason: Headache/Pain Mild Scale (1-3) Last Admin: 10/15/22 04:23 Dose: 650 mg Al Hydroxide/Mg Hydroxide (Magnesium Hydrox/Alum Hydrox 30 Ml Oral.Susp) 30 ml PO Q6H PRN PRN Reason: Heartburn/Nausea Amlodipine Besylate (Amlodipine Besylate 2.5 Mg Tablet) 7.5 mg PO DAILY [facility]; Protocol Last Admin: 10/15/22 08:19 Dose: 7.5 mg Aripiprazole (Aripiprazole 10 Mg Tablet) 10 mg PO BEDTIME [facility] Last Admin: 10/14/22 20:13 Dose: 10 mg Furosemide (Furosemide 20 Mg Tablet) 20 mg PO DAILY [facility]; Protocol Last Admin: 10/15/22 08:19 Dose: 20 mg Hydroxyzine HCl (Hydroxyzine Hcl 25 Mg Tablet) 25 mg PO Q6H PRN PRN Reason: Anxiety Insulin Human Lispro (Insulin Lispro 100 Unit/Ml 3 Ml Vial) 0 unit SUBCUT QIDACHS [facility]; Protocol Last Admin: 10/15/22 08:18 Dose: Not Given Magnesium Hydroxide (Milk Of Magnesia 30 Ml Oral.Susp) 30 ml PO DAILY PRN PRN Reason: Constipation Metformin HCl (Metformin Hcl 500 Mg Tablet) 500 mg PO BIDWM [facility] Last Admin: 10/15/22 08:18 Dose: 500 mg Sitagliptin Phosphate (Sitagliptin Phosphate 100 Mg Tablet) 100 mg PO DAILY [facility] Last Admin: 10/15/22 08:19 Dose: 100 mg Trazodone HCl (Trazodone Hcl 50 Mg Tablet) 50 mg PO BEDTIME PRN PRN Reason: Insomnia Allergies Allergies Allergy/AdvReac Type Severity Reaction Status Date / Time No Known Allergies Allergy Verified 09/29/22 00:49 Assessment & Plan Assessment & Plan (1) Schizophrenia: Status: Acute Code(s): F20.9 - Schizophrenia, unspecified (2) Diabetes mellitus: Status: Acute Code(s): E11.9 - Type 2 diabetes mellitus without complications (3) Hypertension: Status: Acute Code(s): I10 - Essential (primary) hypertension Plan The patient is a 77-year-old female with a prior history of schizophrenia who was brought into the emergency room of another hospital for disorganized behavior, unable to take care of herself, her home was full with feces is rodents and spoiled food, unable to take care of herself. Since admission she has refused to take medications and she has been grossly disorganized. She is in a 3 day notice. Plan 1. Gather collateral information. 2. We are going to filed for Section 7 and 8 since the patient is unable to take care of herself. 3. We will continue with medical workout. 4. At this moment the patient will be technically homeless and we will need to find her proper housing. mold release worker is working with [facility] adult protective caseworker 10/06: Continue current treatment. Encourage adherence. Monitor for signs of worsening mental status and blood sugars. 10/07: Continue treatment plan. 10/08 lispro added for coverage due to elevated BS. Increase amlodipine due to hypertension- continue to monitor 10/09 continue tx, pending court. 10/10 continues to present paranoid, declines medical and psychiatric medications. 10/[address] hearing. 10/[address] 10/13 patient refusing antihypertensive and diabetic medication; she says she does not have diabetes at all; conventional underwriter offered a different medication other than metformin however patient refused. 10/14 no change in presentation however patient did take medication more today. However she continued to refuse sliding scale insulin 10/15 continue tx plan Patient educated on: diagnosis Informed Consent: does not understand Reason for continued inpatient stay Substantial Risk for: inability to function Time Spent With Patient Time: Total time managing care of this patient today ____ minutes.
[2022-10-15 11:30] LABS: Glucose, Whole Blood 352 mg/dL (60-115)
[2022-10-15 16:04] LABS: Glucose, Whole Blood 309 mg/dL (60-115)
--- NOTE | 2022-10-15 17:57 | PC.NURSE ---
Dr Atkinson informed of continued elevated poc blood sugars and refusal of sliding scale insulin. Pt states she will never take insulin. Accepting Metformin and Januvia. Accepts Metformin which has 70 on back of pill. Concern expressed to Dr Atkinson that pt may not accept med if pill changes. No change in meds at present time.
[2022-10-15] MEDS: ARIPiprazole 10 MG TABLET PO (20:46)
[2022-10-15 20:52] VITALS: BP 149/65; PULSE 88; RESP 18; TEMP 36.4; O2SAT 96
[2022-10-15 20:56] LABS: Glucose, Whole Blood 249 mg/dL (60-115)
[2022-10-16 03:02] LABS: Glucose, Whole Blood 292 mg/dL (60-115)
[2022-10-16 07:51] LABS: Glucose, Whole Blood 258 mg/dL (60-115)
[2022-10-16 08:00] VITALS: BP 131/61; PULSE 78; RESP 18; TEMP 36; O2SAT 99
[2022-10-16] MEDS: amLODIPine Besylate 2.5 MG TABLET 7.5 MG PO (08:22)
[2022-10-16] MEDS: SITagliptin Phosphate 100 MG TABLET PO (08:22)
[2022-10-16] MEDS: Furosemide 20 MG TABLET PO (08:23)
[2022-10-16 11:23] LABS: Glucose, Whole Blood 309 mg/dL (60-115)
--- NOTE | 2022-10-16 16:18 | P.PNPSI_ITS ---
Subjective Subjective Date of Service: 10/16/22 Reason For Visit: F29 Nathalia, F43.10 PTSD Interim History: The nursing staff reported patient has refused her insulin she has labile and angry at times. The patient remains very paranoid stating that she does not have any medical problems and she had not been taking any medications. She only has taking Abilify to days in a row counting yesterday. He had been on compliant for 10 days previously. She does not believe that she had blood pressure problems or diabetes. The occupational therapy reported that she needs constant redirection and goes to groups. On interview the patient stated that she does not want to take any medications and she is going to refused all treatment. Mental Status Exam Mental Status Exam Patient Appearance: Well Grooomed Patient Orientation: Person and Situation Level of Consciousness: Awake Patient Behavior: Guarded, Suspicious and Belligerent Mood Description: Suspicious and Hostile Affect Description: Labile Patient Cognition Impaired: Yes Ability to Follow Directions: Fair Speech Pattern: Clear Hallucinations: None Delusions: Paranoid Ideation Thought Process: Illogical and Distracted Thought Content: positive for [place] and positive for Tangential Judgement: Poor Diagnostics Vital Signs (24Hr): Vital Signs - 24 hr 10/15/22 20:52 10/16/22 08:00 Temperature 97.5 F 96.8 F Pulse Rate 88 78 Respiratory Rate 18 18 Blood Pressure 149/65 H 131/61 Pulse Oximetry 96 99 Oxygen Delivery Method Room Air Room Air BMI result Body Mass Index 22.1 Labs 09/30/22 06:53 Labs: Laboratory Results - last 48 hr 10/14/22 10/14/22 10/15/22 16:25 19:45 06:44 POC Glucose 329 H 335 H 375 H* 10/15/22 10/15/22 10/15/22 11:25 15:59 20:49 POC Glucose 352 H* 309 H 249 H 10/16/22 10/16/22 10/16/22 02:58 07:47 11:18 POC Glucose 292 H 258 H 309 H Medications Medications Current Medications Acetaminophen (Acetaminophen 325 Mg Tablet) 650 mg PO Q6H PRN PRN Reason: Headache/Pain Mild Scale (1-3) Last Admin: 10/15/22 04:23 Dose: 650 mg Al Hydroxide/Mg Hydroxide (Magnesium Hydrox/Alum Hydrox 30 Ml Oral.Susp) 30 ml PO Q6H PRN PRN Reason: Heartburn/Nausea Amlodipine Besylate (Amlodipine Besylate 2.5 Mg Tablet) 7.5 mg PO DAILY [facility]; Protocol Last Admin: 10/16/22 08:22 Dose: 7.5 mg Aripiprazole (Aripiprazole 10 Mg Tablet) 10 mg PO BEDTIME [facility] Last Admin: 10/15/22 20:46 Dose: 10 mg Furosemide (Furosemide 20 Mg Tablet) 20 mg PO DAILY [facility]; Protocol Last Admin: 10/16/22 08:23 Dose: 20 mg Hydroxyzine HCl (Hydroxyzine Hcl 25 Mg Tablet) 25 mg PO Q6H PRN PRN Reason: Anxiety Insulin Human Lispro (Insulin Lispro 100 Unit/Ml 3 Ml Vial) 0 unit SUBCUT QIDACHS [facility]; Protocol Last Admin: 10/16/22 11:29 Dose: Not Given Magnesium Hydroxide (Milk Of Magnesia 30 Ml Oral.Susp) 30 ml PO DAILY PRN PRN Reason: Constipation Metformin HCl (Metformin Hcl 500 Mg Tablet) 500 mg PO BIDWM [facility] Last Admin: 10/16/22 08:26 Dose: Not Given Sitagliptin Phosphate (Sitagliptin Phosphate 100 Mg Tablet) 100 mg PO DAILY [facility] Last Admin: 10/16/22 08:22 Dose: 100 mg Trazodone HCl (Trazodone Hcl 50 Mg Tablet) 50 mg PO BEDTIME PRN PRN Reason: Insomnia Allergies Allergies Allergy/AdvReac Type Severity Reaction Status Date / Time No Known Allergies Allergy Verified 09/29/22 00:49 Assessment & Plan Assessment & Plan (1) Schizophrenia: Status: Acute Code(s): F20.9 - Schizophrenia, unspecified (2) Diabetes mellitus: Status: Acute Code(s): E11.9 - Type 2 diabetes mellitus without complications (3) Hypertension: Status: Acute Code(s): I10 - Essential (primary) hypertension Plan The patient is a 77-year-old female with a prior history of schizophrenia who was brought into the emergency room of another hospital for disorganized behavior, unable to take care of herself, her home was full with feces is rodents and spoiled food, unable to take care of herself. Since admission she has refused to take medications and she has been grossly disorganized. She is in a 3 day notice. Plan 1. Gather collateral information. 2. We are going to filed for Section 7 and 8 since the patient is unable to take care of herself. 3. We will continue with medical workout. 4. At this moment the patient will be technically homeless and we will need to find her proper housing. mission worker is working with [facility] case management coordinator 10/06: Continue current treatment. Encourage adherence. Monitor for signs of worsening mental status and blood sugars. 10/07: Continue treatment plan. 10/08 lispro added for coverage due to elevated BS. Increase amlodipine due to hypertension- continue to monitor 10/09 continue tx, pending court. 10/10 continues to present paranoid, declines medical and psychiatric medications. 10/[address] hearing. 10/[address]. 10/13 patient refusing antihypertensive and diabetic medication; she says she does not have diabetes at all; entry writer offered a different medication other than metformin however patient refused. 10/14 no change in presentation however patient did take medication more today. However she continued to refuse sliding scale insulin 10/15 continue tx plan 10/16 continue same treatment Reason for continued inpatient stay Substantial Risk for: inability to function, rapid decompensation and med/psych decompensation Time Spent With Patient Time: Total time managing care of this patient today ___20_ minutes.
--- NOTE | 2022-10-17 09:14 | PC.NURSE ---
Patient refused am POC.
--- NOTE | 2022-10-17 12:21 | HO.PSYCHPN ---
Subjective Subjective Date of Service: 10/17/22 Reason For Visit: F29 Shizophrenia, F43.10 PTSD Subjective Notes: Section 7 and Section 8 Interim History: The nursing staff reported the patient has no insight into her condition, she remains delusional stating that she had been given up she had been irritable and she has refused vital signs medications and any other intervention. We are waiting for the independent medical office professional instructor since she we filed for Section 7 and 8. On interview the patient remains grossly delusional and easily irritable, she has been refusing all services and she does not have any insight into her condition.. Waiting for court after assessment of the independent medical office professional instructor. Mental Status Exam Mental Status Exam Patient Appearance: Well Grooomed and Appropriate Patient Orientation: Person and Situation Level of Consciousness: Awake and Appropriate Patient Behavior: Guarded and Passive Mood Description: Suspicious Affect Description: Withdrawn Patient Cognition Impaired: Yes Ability to Follow Directions: Good Speech Pattern: Clear Hallucinations: None Delusions: Paranoid Ideation and Ideas of Reference Thought Process: Illogical and Distracted Thought Content: positive for [place], positive for Poverty of Content and positive for Thought Blocking Judgement: Poor Diagnostics Vital Signs (24Hr): BMI result Body Mass Index 22.1 Labs 09/30/22 06:53 Labs: Laboratory Results - last 48 hr 10/15/22 10/15/22 10/16/22 15:59 20:49 02:58 POC Glucose 309 H 249 H 292 H 10/16/22 10/16/22 07:47 11:18 POC Glucose 258 H 309 H Medications Medications Current Medications Acetaminophen (Acetaminophen 325 Mg Tablet) 650 mg PO Q6H PRN PRN Reason: Headache/Pain Mild Scale (1-3) Last Admin: 10/15/22 04:23 Dose: 650 mg Al Hydroxide/Mg Hydroxide (Magnesium Hydrox/Alum Hydrox 30 Ml Oral.Susp) 30 ml PO Q6H PRN PRN Reason: Heartburn/Nausea Amlodipine Besylate (Amlodipine Besylate 2.5 Mg Tablet) 7.5 mg PO DAILY [facility]; Protocol Last Admin: 10/17/22 09:30 Dose: Not Given Aripiprazole (Aripiprazole 10 Mg Tablet) 10 mg PO BEDTIME [facility] Last Admin: 10/16/22 20:24 Dose: Not Given Furosemide (Furosemide 20 Mg Tablet) 20 mg PO DAILY [facility]; Protocol Last Admin: 10/17/22 09:30 Dose: Not Given Hydroxyzine HCl (Hydroxyzine Hcl 25 Mg Tablet) 25 mg PO Q6H PRN PRN Reason: Anxiety Insulin Human Lispro (Insulin Lispro 100 Unit/Ml 3 Ml Vial) 0 unit SUBCUT QIDACHS [facility]; Protocol Last Admin: 10/17/22 08:35 Dose: Not Given Magnesium Hydroxide (Milk Of Magnesia 30 Ml Oral.Susp) 30 ml PO DAILY PRN PRN Reason: Constipation Metformin HCl (Metformin Hcl 500 Mg Tablet) 500 mg PO BIDWM [facility] Last Admin: 10/17/22 09:30 Dose: Not Given Sitagliptin Phosphate (Sitagliptin Phosphate 100 Mg Tablet) 100 mg PO DAILY [facility] Last Admin: 10/17/22 09:30 Dose: Not Given Trazodone HCl (Trazodone Hcl 50 Mg Tablet) 50 mg PO BEDTIME PRN PRN Reason: Insomnia Allergies Allergies Allergy/AdvReac Type Severity Reaction Status Date / Time No Known Allergies Allergy Verified 09/29/22 00:49 Assessment & Plan Assessment & Plan (1) Schizophrenia: Status: Acute Code(s): F20.9 - Schizophrenia, unspecified (2) Diabetes mellitus: Status: Acute Code(s): E11.9 - Type 2 diabetes mellitus without complications (3) Hypertension: Status: Acute Code(s): I10 - Essential (primary) hypertension Plan The patient is a 77-year-old female with a prior history of schizophrenia who was brought into the emergency room of another hospital for disorganized behavior, unable to take care of herself, her home was full with feces is rodents and spoiled food, unable to take care of herself. Since admission she has refused to take medications and she has been grossly disorganized. She is in a 3 day notice. Plan 1. Gather collateral information. 2. We are going to filed for Section 7 and 8 since the patient is unable to take care of herself. 3. We will continue with medical workout. 4. At this moment the patient will be technically homeless and we will need to find her proper housing. viscose department worker is working with [facility] rn field case manager 5. The patient has refused any type of treatment that we are going for court. Today we had the independent medical office professional instructor assessment. Reason for continued inpatient stay Substantial Risk for: inability to function, rapid decompensation and med/psych decompensation Time Spent With Patient Time: Total time managing care of this patient today __20__ minutes.
--- NOTE | 2022-10-17 14:14 | PC.NURSE ---
Patient refused am vitals, POC and medications.
[2022-10-17 18:00] VITALS: RESP 18
--- NOTE | 2022-10-18 16:31 | P.PNPSI_ITS ---
Subjective Subjective Date of Service: 10/18/22 Reason For Visit: F29 Shizophrenia, F43.10 PTSD Interim History: The nursing staff reported the patient had been irritable refused all care vital signs, point of care and medications. She ate well. She slept only 4 hours and she had some outbursts in the evening. Today we have court and the railway signal technician ordered Section 7 and 8. On interview the patient remains confused, she wants to take out her bracelets. Unable to understand that she is inpatient Mental Status Exam Mental Status Exam Patient Appearance: Appropriate Patient Orientation: Person and Situation Level of Consciousness: Awake and Appropriate Patient Behavior: Guarded and Passive Mood Description: Withdrawn Affect Description: Constricted and Labile Patient Cognition Impaired: Yes Ability to Follow Directions: Poor Speech Pattern: Impoverished Hallucinations: None Delusions: Paranoid Ideation and Ideas of Reference Thought Process: Illogical and Slowed Thinking Thought Content: positive for [place], positive for Poverty of Content and positive for Thought Blocking Judgement: Poor Diagnostics Vital Signs (24Hr): Vital Signs - 24 hr 10/17/22 18:00 Respiratory Rate 18 BMI result Body Mass Index 22.1 Labs 09/30/22 06:53 Medications Medications Current Medications Acetaminophen (Acetaminophen 325 Mg Tablet) 650 mg PO Q6H PRN PRN Reason: Headache/Pain Mild Scale (1-3) Last Admin: 10/15/22 04:23 Dose: 650 mg Al Hydroxide/Mg Hydroxide (Magnesium Hydrox/Alum Hydrox 30 Ml Oral.Susp) 30 ml PO Q6H PRN PRN Reason: Heartburn/Nausea Amlodipine Besylate (Amlodipine Besylate 2.5 Mg Tablet) 7.5 mg PO DAILY [facility]; Protocol Last Admin: 10/18/22 08:29 Dose: Not Given Aripiprazole (Aripiprazole 10 Mg Tablet) 10 mg PO BEDTIME [facility] Last Admin: 10/17/22 20:01 Dose: Not Given Furosemide (Furosemide 20 Mg Tablet) 20 mg PO DAILY [facility]; Protocol Last Admin: 10/18/22 08:29 Dose: Not Given Hydroxyzine HCl (Hydroxyzine Hcl 25 Mg Tablet) 25 mg PO Q6H PRN PRN Reason: Anxiety Insulin Human Lispro (Insulin Lispro 100 Unit/Ml 3 Ml Vial) 0 unit SUBCUT QIDACHS [facility]; Protocol Last Admin: 10/18/22 16:29 Dose: Not Given Magnesium Hydroxide (Milk Of Magnesia 30 Ml Oral.Susp) 30 ml PO DAILY PRN PRN Reason: Constipation Metformin HCl (Metformin Hcl 500 Mg Tablet) 500 mg PO BIDWM [facility] Last Admin: 10/18/22 08:29 Dose: Not Given Sitagliptin Phosphate (Sitagliptin Phosphate 100 Mg Tablet) 100 mg PO DAILY [facility] Last Admin: 10/18/22 08:29 Dose: Not Given Trazodone HCl (Trazodone Hcl 50 Mg Tablet) 50 mg PO BEDTIME PRN PRN Reason: Insomnia Allergies Allergies Allergy/AdvReac Type Severity Reaction Status Date / Time No Known Allergies Allergy Verified 09/29/22 00:49 Assessment & Plan Assessment & Plan (1) Schizophrenia: Status: Acute Code(s): F20.9 - Schizophrenia, unspecified (2) Diabetes mellitus: Status: Acute Code(s): E11.9 - Type 2 diabetes mellitus without complications (3) Hypertension: Status: Acute Code(s): I10 - Essential (primary) hypertension Plan The patient is a 77-year-old female with a prior history of schizophrenia who was brought into the emergency room of another hospital for disorganized behavior, unable to take care of herself, her home was full with feces is rodents and spoiled food, unable to take care of herself. Since admission she has refused to take medications and she has been grossly disorganized. She is in a 3 day notice. Plan 1. Gather collateral information. 2. We are going to filed for Section 7 and 8 since the patient is unable to take care of herself. 3. We will continue with medical workout. 4. At this moment the patient will be technically homeless and we will need to find her proper housing. facility maintenance worker is working with [facility] onsite case manager 5. The patient has refused any type of treatment that we are going for court. This week we had the independent medical administrator assessment and today we had court. The the railway signal technician ordered Section 7 and 8, we are waiting for the legal paperwork to starting enforcing it.. Reason for continued inpatient stay Substantial Risk for: inability to function, rapid decompensation and med/psych decompensation Time Spent With Patient Time: Total time managing care of this patient today __20__ minutes.
[2022-10-19 03:52] LABS: Glucose, Whole Blood 211 mg/dL (60-115)
[2022-10-19 07:20] VITALS: BP 154/68; PULSE 85; RESP 18; TEMP 35.9; O2SAT 96
[2022-10-19 07:44] LABS: Glucose, Whole Blood 242 mg/dL (60-115)
--- NOTE | 2022-10-19 11:26 | HO.PSYCHPN ---
Subjective Subjective Date of Service: 10/19/22 Reason For Visit: F29 Shizophrenia, F43.10 PTSD Subjective Notes: Section 7 and Section 8 Interim History: The nursing staff reported the patient has been irritable anxious and cooperative. She had refused vital signs medications and point of care. She slept very poorly last night. Yesterday she was committed and the mixing engineer sign a Section 7 and 8 we will get the legal paperwork. On interview I explained her that she had been committed into the hospital and she is now court remanded to follow treatment but she was adamant that she is not taking any medications. We will start backup IM Haldol as per the Section 7 and 8. Mental Status Exam Mental Status Exam Patient Appearance: Appropriate Patient Orientation: Person and Situation Level of Consciousness: Awake and Appropriate Patient Behavior: Guarded and Passive Mood Description: Withdrawn Affect Description: Labile and Angry Patient Cognition Impaired: Yes Ability to Follow Directions: Good Speech Pattern: Clear Hallucinations: None Delusions: Paranoid Ideation and Ideas of Reference Thought Process: Illogical and Distracted Thought Content: positive for Loose Associations and positive for Thought Blocking Judgement: Poor Diagnostics Vital Signs (24Hr): Vital Signs - 24 hr 10/19/22 07:20 Temperature 96.7 F L Pulse Rate 85 Respiratory Rate 18 Blood Pressure 154/68 H Pulse Oximetry 96 Oxygen Delivery Method Room Air BMI result Body Mass Index 22.1 Labs 09/30/22 06:53 Labs: Laboratory Results - last 48 hr 10/19/22 10/19/22 03:47 07:40 POC Glucose 211 H 242 H Medications Medications Current Medications Acetaminophen (Acetaminophen 325 Mg Tablet) 650 mg PO Q6H PRN PRN Reason: Headache/Pain Mild Scale (1-3) Last Admin: 10/15/22 04:23 Dose: 650 mg Al Hydroxide/Mg Hydroxide (Magnesium Hydrox/Alum Hydrox 30 Ml Oral.Susp) 30 ml PO Q6H PRN PRN Reason: Heartburn/Nausea Amlodipine Besylate (Amlodipine Besylate 2.5 Mg Tablet) 7.5 mg PO DAILY [facility]; Protocol Last Admin: 10/19/22 08:42 Dose: Not Given Aripiprazole (Aripiprazole 10 Mg Tablet) 10 mg PO BEDTIME [facility] Last Admin: 10/18/22 22:58 Dose: Not Given Furosemide (Furosemide 20 Mg Tablet) 20 mg PO DAILY [facility]; Protocol Last Admin: 10/19/22 08:42 Dose: Not Given Hydroxyzine HCl (Hydroxyzine Hcl 25 Mg Tablet) 25 mg PO Q6H PRN PRN Reason: Anxiety Insulin Human Lispro (Insulin Lispro 100 Unit/Ml 3 Ml Vial) 0 unit SUBCUT QIDACHS [facility]; Protocol Last Admin: 10/19/22 08:42 Dose: Not Given Magnesium Hydroxide (Milk Of Magnesia 30 Ml Oral.Susp) 30 ml PO DAILY PRN PRN Reason: Constipation Metformin HCl (Metformin Hcl 500 Mg Tablet) 500 mg PO BIDWM [facility] Last Admin: 10/19/22 08:42 Dose: Not Given Sitagliptin Phosphate (Sitagliptin Phosphate 100 Mg Tablet) 100 mg PO DAILY [facility] Last Admin: 10/19/22 08:42 Dose: Not Given Trazodone HCl (Trazodone Hcl 50 Mg Tablet) 50 mg PO BEDTIME PRN PRN Reason: Insomnia Allergies Allergies Allergy/AdvReac Type Severity Reaction Status Date / Time No Known Allergies Allergy Verified 09/29/22 00:49 Assessment & Plan Assessment & Plan (1) Schizophrenia: Status: Acute Code(s): F20.9 - Schizophrenia, unspecified (2) Diabetes mellitus: Status: Acute Code(s): E11.9 - Type 2 diabetes mellitus without complications (3) Hypertension: Status: Acute Code(s): I10 - Essential (primary) hypertension Plan The patient is a 77-year-old female with a prior history of schizophrenia who was brought into the emergency room of another hospital for disorganized behavior, unable to take care of herself, her home was full with feces is rodents and spoiled food, unable to take care of herself. Since admission she has refused to take medications and she has been grossly disorganized. She is in a 3 day notice. Plan 1. Gather collateral information. 2. We are going to filed for Section 7 and 8 since the patient is unable to take care of herself. 3. We will continue with medical workout. 4. At this moment the patient will be technically homeless and we will need to find her proper housing. call circuit worker is working with [facility] nurse case management 5. The patient has refused any type of treatment that we are going for court. This week we had the independent medical records library professor assessment and today we had court. The the mixing engineer ordered Section 7 and 8, IM Haldol back up Reason for continued inpatient stay Substantial Risk for: inability to function, rapid decompensation and med/psych decompensation Time Spent With Patient Time: Total time managing care of this patient today __20__ minutes.
[2022-10-19 11:40] LABS: Glucose, Whole Blood 308 mg/dL (60-115)
--- NOTE | 2022-10-19 11:57 | PC.NURSE ---
0730 and 1130 blood sugars are elevated above 150. Patient states, I'm not diabetic anymore and I don't take insulin. When told by this property underwriter that her blood sugars are above 200/300 she states, I don't take insulin or anything else because I don't have diabetes anymore. I can manage it myself. Continues to refuse all PO medications and insulin.
[2022-10-19 18:00] VITALS: BP 143/63; PULSE 89; RESP 16; TEMP 36; O2SAT 97
[2022-10-19 20:05] LABS: Glucose, Whole Blood 310 mg/dL (60-115)
[2022-10-19] MEDS: Haloperidol Lactate 5 MG/ML VIAL 10 MG IM (21:31)
--- NOTE | 2022-10-19 22:24 | PC.NURSE ---
Pt declined vidal ordered abilify 10mg PO. After several attempts by 2 RNs to get her to take it orally, Pt emphatically refused to take abilify PO. Pt given Haldol 10mg IM at 2130 per vidal order. Pt held for safe IM administration.
[2022-10-20 06:52] LABS: Glucose, Whole Blood 207 mg/dL (60-115)
--- NOTE | 2022-10-20 08:43 | HO.PSYCHPN ---
Subjective Subjective Date of Service: 10/20/22 Reason For Visit: F29 Shizophrenia, F43.10 PTSD Interim History: Pt seen, discussed with team. Plan of care reviewed. Ambulatory, active, now under Section 8. Team report care resistance at times. Sleep and appetite are regulating Pt is busy dressing herself today. She is talkative, appropriate and task focused, happy to focus just on her task. No changes were made today to regime or care plan Medication Compliance: Intermittent (Section 8) Side effects from medications: No Attending Groups: Intermittent Review of Systems Acute medical concerns: No Medical Review of Systems: unchanged Mental Status Exam Mental Status Exam Patient Appearance: Appropriate Patient Orientation: Person and Situation Level of Consciousness: Awake and Appropriate Patient Behavior: Guarded and Passive Mood Description: Withdrawn Affect Description: Labile and Angry Patient Cognition Impaired: Yes Ability to Follow Directions: Good Speech Pattern: Clear Hallucinations: None Delusions: Paranoid Ideation and Ideas of Reference Thought Process: Illogical and Distracted Thought Content: positive for Loose Associations and positive for Thought Blocking Judgement: Poor Diagnostics Vital Signs (24Hr): Vital Signs - 24 hr 10/19/22 18:00 Temperature 96.8 F Pulse Rate 89 Respiratory Rate 16 Blood Pressure 143/63 H Pulse Oximetry 97 Oxygen Delivery Method Room Air BMI result Body Mass Index 22.1 Labs 09/30/22 06:53 Labs: Laboratory Results - last 48 hr 10/19/22 10/19/22 10/19/22 03:47 07:40 11:35 POC Glucose 211 H 242 H 308 H 10/19/22 10/20/22 20:00 06:48 POC Glucose 310 H 207 H Medications Medications Current Medications Acetaminophen (Acetaminophen 325 Mg Tablet) 650 mg PO Q6H PRN PRN Reason: Headache/Pain Mild Scale (1-3) Last Admin: 10/15/22 04:23 Dose: 650 mg Al Hydroxide/Mg Hydroxide (Magnesium Hydrox/Alum Hydrox 30 Ml Oral.Susp) 30 ml PO Q6H PRN PRN Reason: Heartburn/Nausea Amlodipine Besylate (Amlodipine Besylate 2.5 Mg Tablet) 7.5 mg PO DAILY [facility]; Protocol Last Admin: 10/20/22 08:20 Dose: Not Given Aripiprazole (Aripiprazole 10 Mg Tablet) 10 mg PO BEDTIME [facility] Last Admin: 10/19/22 21:32 Dose: Not Given Furosemide (Furosemide 20 Mg Tablet) 20 mg PO DAILY [facility]; Protocol Last Admin: 10/20/22 08:20 Dose: Not Given Haloperidol Lactate (Haloperidol Lactate 5 Mg/Ml Vial) 10 mg IM BEDTIME PRN PRN Reason: refusal of Abilify PO Last Admin: 10/19/22 21:31 Dose: 10 mg Hydroxyzine HCl (Hydroxyzine Hcl 25 Mg Tablet) 25 mg PO Q6H PRN PRN Reason: Anxiety Insulin Human Lispro (Insulin Lispro 100 Unit/Ml 3 Ml Vial) 0 unit SUBCUT QIDACHS [facility]; Protocol Last Admin: 10/20/22 08:19 Dose: Not Given Magnesium Hydroxide (Milk Of Magnesia 30 Ml Oral.Susp) 30 ml PO DAILY PRN PRN Reason: Constipation Metformin HCl (Metformin Hcl 500 Mg Tablet) 500 mg PO BIDWM [facility] Last Admin: 10/20/22 08:20 Dose: Not Given Sitagliptin Phosphate (Sitagliptin Phosphate 100 Mg Tablet) 100 mg PO DAILY [facility] Last Admin: 10/20/22 08:20 Dose: Not Given Trazodone HCl (Trazodone Hcl 50 Mg Tablet) 50 mg PO BEDTIME PRN PRN Reason: Insomnia Allergies Allergies Allergy/AdvReac Type Severity Reaction Status Date / Time No Known Allergies Allergy Verified 09/29/22 00:49 Assessment & Plan Assessment & Plan (1) Schizophrenia: Status: Acute Code(s): F20.9 - Schizophrenia, unspecified (2) Diabetes mellitus: Status: Acute Code(s): E11.9 - Type 2 diabetes mellitus without complications (3) Hypertension: Status: Acute Code(s): I10 - Essential (primary) hypertension Plan The patient is a 77-year-old female with a prior history of schizophrenia who was brought into the emergency room of another hospital for disorganized behavior, unable to take care of herself, her home was full with feces is rodents and spoiled food, unable to take care of herself. Since admission she has refused to take medications and she has been grossly disorganized. She is in a 3 day notice. Plan 1. Gather collateral information. 2. We are going to filed for Section 7 and 8 since the patient is unable to take care of herself. 3. We will continue with medical workout. 4. At this moment the patient will be technically homeless and we will need to find her proper housing. blood bank worker is working with [facility] case worker 5. The patient has refused any type of treatment that we are going for court. This week we had the independent manager of medical assessment and today we had court. The the right of way agent ordered Section 7 and 8, JOSTIN Mars back up Reason for continued inpatient stay Substantial Risk for: harm to self, harm to others, inability to function, rapid decompensation and med/psych decompensation Time Spent With Patient Time: Total time managing care of this patient today ____ minutes.
[2022-10-20 18:00] VITALS: BP 177/74; PULSE 88; RESP 20; TEMP 36.5; O2SAT 98
[2022-10-20 20:32] LABS: Glucose, Whole Blood 372 mg/dL (60-115)
[2022-10-20] MEDS: ARIPiprazole 10 MG TABLET PO (20:33)
[2022-10-20] MEDS: metFORMIN HCl 500 MG TABLET PO (20:34)
[2022-10-21 05:39] LABS: Glucose, Whole Blood 162 mg/dL (60-115)
--- NOTE | 2022-10-21 05:41 | P.PNPSI_ITS ---
Subjective Subjective Date of Service: 10/21/22 Reason For Visit: F29 Nathalia, F43.10 PTSD Interim History: Pt seen, discussed with the team. Plan of care reviewed. Pt on the terrace-team report she is now very pleasant, talkative, accepting of care, was dancing last evening in the milieu and is much improved with medicine compliance. Team reports a significant mood change. Today, she had several stories in her life she was happy to share. She expressed appreciation for the terrace, stating how good it felt to her to be out in the summer weather. Medication Compliance: Yes Side effects from medications: No Attending Groups: Yes Review of Systems Acute medical concerns: No Mental Status Exam Mental Status Exam Patient Appearance: Appropriate Patient Orientation: Person and Situation Level of Consciousness: Awake and Appropriate Patient Behavior: Talkative Mood Description: Calm and Appropriate Affect Description: Calm and Appropriate Patient Cognition Impaired: Yes Ability to Follow Directions: Good Speech Pattern: Clear Memory Description: Remote Impaired and Episodic Impaired Hallucinations: None Thought Process: Confusion (mild) Thought Content: positive for [place] and positive for Circumstantial Judgement: Fair Diagnostics Vital Signs (24Hr): Vital Signs - 24 hr 10/20/22 18:00 Temperature 97.7 F Pulse Rate 88 Respiratory Rate 20 Blood Pressure 177/74 H Pulse Oximetry 98 Oxygen Delivery Method Room Air BMI result Body Mass Index 22.1 Labs 10/21/22 07:34 Labs: Laboratory Results - last 48 hr 10/19/22 10/19/22 10/19/22 07:40 11:35 20:00 POC Glucose 242 H 308 H 310 H 10/20/22 10/20/22 10/21/22 06:48 20:27 05:34 POC Glucose 207 H 372 H* 162 H Medications Medications Current Medications Acetaminophen (Acetaminophen 325 Mg Tablet) 650 mg PO Q6H PRN PRN Reason: Headache/Pain Mild Scale (1-3) Last Admin: 10/15/22 04:23 Dose: 650 mg Al Hydroxide/Mg Hydroxide (Magnesium Hydrox/Alum Hydrox 30 Ml Oral.Susp) 30 ml PO Q6H PRN PRN Reason: Heartburn/Nausea Amlodipine Besylate (Amlodipine Besylate 2.5 Mg Tablet) 7.5 mg PO DAILY [facility]; Protocol Last Admin: 10/20/22 08:20 Dose: Not Given Aripiprazole (Aripiprazole 10 Mg Tablet) 10 mg PO BEDTIME [facility] Last Admin: 10/20/22 20:33 Dose: 10 mg Furosemide (Furosemide 20 Mg Tablet) 20 mg PO DAILY [facility]; Protocol Last Admin: 10/20/22 08:20 Dose: Not Given Haloperidol Lactate (Haloperidol Lactate 5 Mg/Ml Vial) 10 mg IM BEDTIME PRN PRN Reason: refusal of Abilify PO Last Admin: 10/19/22 21:31 Dose: 10 mg Hydroxyzine HCl (Hydroxyzine Hcl 25 Mg Tablet) 25 mg PO Q6H PRN PRN Reason: Anxiety Insulin Human Lispro (Insulin Lispro 100 Unit/Ml 3 Ml Vial) 0 unit SUBCUT QIDACHS [facility]; Protocol Last Admin: 10/20/22 22:34 Dose: Not Given Magnesium Hydroxide (Milk Of Magnesia 30 Ml Oral.Susp) 30 ml PO DAILY PRN PRN Reason: Constipation Metformin HCl (Metformin Hcl 500 Mg Tablet) 500 mg PO BIDWM [facility] Last Admin: 10/20/22 20:34 Dose: 500 mg Sitagliptin Phosphate (Sitagliptin Phosphate 100 Mg Tablet) 100 mg PO DAILY [facility] Last Admin: 10/20/22 08:20 Dose: Not Given Trazodone HCl (Trazodone Hcl 50 Mg Tablet) 50 mg PO BEDTIME PRN PRN Reason: Insomnia Allergies Allergies Allergy/AdvReac Type Severity Reaction Status Date / Time No Known Allergies Allergy Verified 09/29/22 00:49 Assessment & Plan Assessment & Plan (1) Schizophrenia: Status: Acute Code(s): F20.9 - Schizophrenia, unspecified (2) Diabetes mellitus: Status: Acute Code(s): E11.9 - Type 2 diabetes mellitus without complications (3) Hypertension: Status: Acute Code(s): I10 - Essential (primary) hypertension Plan The patient is a 77-year-old female with a prior history of schizophrenia who was brought into the emergency room of another hospital for disorganized behavior, unable to take care of herself, her home was full with feces is rodents and spoiled food, unable to take care of herself. Since admission she has refused to take medications and she has been grossly disorganized. She is in a 3 day notice. Plan 1. Gather collateral information. 2. We are going to filed for Section 7 and 8 since the patient is unable to take care of herself. 3. We will continue with medical workout. 4. At this moment the patient will be technically homeless and we will need to find her proper housing. sugar mill worker is working with [facility] hospice case manager 5. The patient has refused any type of treatment that we are going for court. This week we had the independent adjunct faculty for medical terminology assessment and today we had court. The the addiction professional ordered Section 7 and 8, JOSTIN Mars back up 10/21/22 Continue current regime and plan of care. Informed Consent: does not understand Reason for continued inpatient stay Substantial Risk for: rapid decompensation Time Spent With Patient Time: Total time managing care of this patient today ____ minutes.
[2022-10-21 08:04] LABS: Creatinine Clr Calc Pharmacy 42.8; Estimated Glomerular Filt Rate > 60
[2022-10-21] MEDS: amLODIPine Besylate 2.5 MG TABLET 7.5 MG PO (08:44)
[2022-10-21] MEDS: Furosemide 20 MG TABLET PO (08:46)
[2022-10-21] MEDS: SITagliptin Phosphate 100 MG TABLET PO (08:47)
[2022-10-21] MEDS: metFORMIN HCl 500 MG TABLET PO ×2 (08:48→16:34)
[2022-10-21 09:07] VITALS: BP 148/67; PULSE 78; RESP 18; TEMP 36.3; O2SAT 98
[2022-10-21 11:40] LABS: Glucose, Whole Blood 237 mg/dL (60-115)
[2022-10-21 16:33] LABS: Glucose, Whole Blood 199 mg/dL (60-115)
[2022-10-21 19:30] VITALS: BP 146/63; PULSE 94; TEMP 36.4; O2SAT 96
[2022-10-21 20:04] LABS: Glucose, Whole Blood 284 mg/dL (60-115)
[2022-10-21] MEDS: traZODone HCL 50 MG TABLET PO (20:28)
[2022-10-21] MEDS: ARIPiprazole 10 MG TABLET PO (20:28)
[2022-10-22 05:59] LABS: Glucose, Whole Blood 225 mg/dL (60-115)
[2022-10-22 07:30] VITALS: BP 129/62; PULSE 70; RESP 18; TEMP 35.9; O2SAT 98
[2022-10-22] MEDS: Furosemide 20 MG TABLET PO (08:47)
[2022-10-22] MEDS: SITagliptin Phosphate 100 MG TABLET PO (08:47)
[2022-10-22] MEDS: amLODIPine Besylate 2.5 MG TABLET 7.5 MG PO (08:48)
[2022-10-22] MEDS: metFORMIN HCl 500 MG TABLET PO ×2 (08:48→16:51)
[2022-10-22 11:13] LABS: Glucose, Whole Blood 276 mg/dL (60-115)
--- NOTE | 2022-10-22 15:24 | HO.PSYCHPN ---
Subjective Subjective Date of Service: 10/22/22 Reason For Visit: F29 Shizophrenia, F43.10 PTSD Subjective Notes: Section 7 and Section 8 Interim History: The nursing staff reported the patient had been cheerful. She had been fully compliant with her medication after she got an backup Haldol IM last Saturday. On interview the patient was working with the occupational therapist on one-to-one and she stated that she is going to take her medications. On interview she still states that she does not take medications for diabetes but she will take antipsychotics. Mental Status Exam Mental Status Exam Patient Appearance: Well Grooomed Patient Orientation: Person and Situation Level of Consciousness: Awake and Appropriate Patient Behavior: Guarded and Passive Mood Description: Withdrawn Affect Description: Constricted Patient Cognition Impaired: Yes Ability to Follow Directions: Good Speech Pattern: Clear Hallucinations: None Delusions: Not Present Thought Process: Distracted and Evasive Thought Content: positive for [place] and positive for Poverty of Content Judgement: Poor Diagnostics Vital Signs (24Hr): Vital Signs - 24 hr 10/21/22 19:30 10/22/22 07:30 Temperature 97.5 F 96.7 F L Pulse Rate 94 70 Respiratory Rate 18 Blood Pressure 146/63 H 129/62 Pulse Oximetry 96 98 Oxygen Delivery Method Room Air Room Air BMI result Body Mass Index 22.1 Labs 10/21/22 07:34 Labs: Laboratory Results - last 48 hr 10/20/22 10/21/22 10/21/22 20:27 05:34 07:34 Creatinine 0.83 Estim Creat Clear Calc 42.8 Estimated GFR > 60 POC Glucose 372 H* 162 H 10/21/22 10/21/22 10/21/22 11:37 16:29 19:57 Creatinine Estim Creat Clear Calc Estimated GFR POC Glucose 237 H 199 H 284 H 10/22/22 10/22/22 05:52 11:05 Creatinine Estim Creat Clear Calc Estimated GFR POC Glucose 225 H 276 H Medications Medications Current Medications Acetaminophen (Acetaminophen 325 Mg Tablet) 650 mg PO Q6H PRN PRN Reason: Headache/Pain Mild Scale (1-3) Last Admin: 10/15/22 04:23 Dose: 650 mg Al Hydroxide/Mg Hydroxide (Magnesium Hydrox/Alum Hydrox 30 Ml Oral.Susp) 30 ml PO Q6H PRN PRN Reason: Heartburn/Nausea Amlodipine Besylate (Amlodipine Besylate 2.5 Mg Tablet) 7.5 mg PO DAILY [facility]; Protocol Last Admin: 10/22/22 08:48 Dose: 7.5 mg Aripiprazole (Aripiprazole 10 Mg Tablet) 10 mg PO BEDTIME [facility] Last Admin: 10/21/22 20:28 Dose: 10 mg Furosemide (Furosemide 20 Mg Tablet) 20 mg PO DAILY [facility]; Protocol Last Admin: 10/22/22 08:47 Dose: 20 mg Haloperidol Lactate (Haloperidol Lactate 5 Mg/Ml Vial) 10 mg IM BEDTIME PRN PRN Reason: refusal of Abilify PO Last Admin: 10/19/22 21:31 Dose: 10 mg Hydroxyzine HCl (Hydroxyzine Hcl 25 Mg Tablet) 25 mg PO Q6H PRN PRN Reason: Anxiety Insulin Human Lispro (Insulin Lispro 100 Unit/Ml 3 Ml Vial) 0 unit SUBCUT QIDACHS [facility]; Protocol Last Admin: 10/22/22 11:31 Dose: Not Given Magnesium Hydroxide (Milk Of Magnesia 30 Ml Oral.Susp) 30 ml PO DAILY PRN PRN Reason: Constipation Metformin HCl (Metformin Hcl 500 Mg Tablet) 500 mg PO BIDWM [facility] Last Admin: 10/22/22 08:48 Dose: 500 mg Sitagliptin Phosphate (Sitagliptin Phosphate 100 Mg Tablet) 100 mg PO DAILY [facility] Last Admin: 10/22/22 08:47 Dose: 100 mg Trazodone HCl (Trazodone Hcl 50 Mg Tablet) 50 mg PO BEDTIME PRN PRN Reason: Insomnia Last Admin: 10/21/22 20:28 Dose: 50 mg Allergies Allergies Allergy/AdvReac Type Severity Reaction Status Date / Time No Known Allergies Allergy Verified 09/29/22 00:49 Assessment & Plan Assessment & Plan (1) Schizophrenia: Status: Acute Code(s): F20.9 - Schizophrenia, unspecified (2) Diabetes mellitus: Status: Acute Code(s): E11.9 - Type 2 diabetes mellitus without complications (3) Hypertension: Status: Acute Code(s): I10 - Essential (primary) hypertension Plan The patient is a 77-year-old female with a prior history of schizophrenia who was brought into the emergency room of another hospital for disorganized behavior, unable to take care of herself, her home was full with feces is rodents and spoiled food, unable to take care of herself. Since admission she has refused to take medications and she has been grossly disorganized. She is in a 3 day notice. Plan 1. Gather collateral information. 2. We are going to filed for Section 7 and 8 since the patient is unable to take care of herself. 3. We will continue with medical workout. 4. At this moment the patient will be technically homeless and we will need to find her proper housing. ornamental ironworker is working with [facility] case fitter 5. The patient has refused any type of treatment that we are going for court. This week we had the independent medical accountant assessment and today we had court. The the power superintendent ordered Section 7 and 8, JOSTIN Mars back up Reason for continued inpatient stay Substantial Risk for: inability to function, rapid decompensation and med/psych decompensation Time Spent With Patient Time: Total time managing care of this patient today __20__ minutes.
[2022-10-22 16:32] LABS: Glucose, Whole Blood 251 mg/dL (60-115)
[2022-10-22 19:45] VITALS: BP 119/53; PULSE 79; TEMP 36.3; O2SAT 99
[2022-10-22] MEDS: ARIPiprazole 10 MG TABLET PO (20:15)
[2022-10-23 00:12] LABS: Glucose, Whole Blood 292 mg/dL (60-115)
[2022-10-23 05:21] LABS: Glucose, Whole Blood 294 mg/dL (60-115)
[2022-10-23 07:45] VITALS: BP 120/58; PULSE 76; RESP 18; TEMP 36.2; O2SAT 97
[2022-10-23] MEDS: amLODIPine Besylate 2.5 MG TABLET 7.5 MG PO (08:19)
[2022-10-23] MEDS: SITagliptin Phosphate 100 MG TABLET PO (08:19)
[2022-10-23] MEDS: Furosemide 20 MG TABLET PO (08:20)
[2022-10-23] MEDS: metFORMIN HCl 500 MG TABLET PO ×2 (08:21→16:37)
--- NOTE | 2022-10-23 11:55 | HO.PSYCHPN ---
Subjective Subjective Date of Service: 10/23/22 Reason For Visit: F29 Shizophrenia, F43.10 PTSD Subjective Notes: Section 7 and Section 8 Interim History: The nursing staff reported the patient had been compliant with her Abilify. He had been common cooperative, she slept 6 hours. The public health social worker reported that she will contact her ACS esteem regarding possible disposition early next week. On interview the patient denies new symptoms, easily redirectable. Mental Status Exam Mental Status Exam Patient Appearance: Well Grooomed and Appropriate Patient Orientation: Situation Level of Consciousness: Awake and Appropriate Patient Behavior: Guarded and Passive Mood Description: Withdrawn Affect Description: Constricted Patient Cognition Impaired: Yes Ability to Follow Directions: Good Speech Pattern: Clear Hallucinations: None Delusions: Not Present Thought Process: Linear Thought Content: positive for [place] Judgement: Poor Diagnostics Vital Signs (24Hr): Vital Signs - 24 hr 10/22/22 19:45 10/23/22 07:45 Temperature 97.3 F 97.1 F Pulse Rate 79 76 Respiratory Rate 18 Blood Pressure 119/53 L 120/58 L Pulse Oximetry 99 97 Oxygen Delivery Method Room Air Room Air BMI result Body Mass Index 22.1 Labs 10/21/22 07:34 Labs: Laboratory Results - last 48 hr 10/21/22 10/21/22 10/22/22 16:29 19:57 05:52 POC Glucose 199 H 284 H 225 H 10/22/22 10/22/22 10/22/22 11:05 16:25 19:42 POC Glucose 276 H 251 H 292 H 10/23/22 05:14 POC Glucose 294 H Medications Medications Current Medications Acetaminophen (Acetaminophen 325 Mg Tablet) 650 mg PO Q6H PRN PRN Reason: Headache/Pain Mild Scale (1-3) Last Admin: 10/15/22 04:23 Dose: 650 mg Al Hydroxide/Mg Hydroxide (Magnesium Hydrox/Alum Hydrox 30 Ml Oral.Susp) 30 ml PO Q6H PRN PRN Reason: Heartburn/Nausea Amlodipine Besylate (Amlodipine Besylate 2.5 Mg Tablet) 7.5 mg PO DAILY [facility]; Protocol Last Admin: 10/23/22 08:19 Dose: 7.5 mg Aripiprazole (Aripiprazole 10 Mg Tablet) 10 mg PO BEDTIME [facility] Last Admin: 10/22/22 20:15 Dose: 10 mg Furosemide (Furosemide 20 Mg Tablet) 20 mg PO DAILY [facility]; Protocol Last Admin: 10/23/22 08:20 Dose: 20 mg Haloperidol Lactate (Haloperidol Lactate 5 Mg/Ml Vial) 10 mg IM BEDTIME PRN PRN Reason: refusal of Abilify PO Last Admin: 10/19/22 21:31 Dose: 10 mg Hydroxyzine HCl (Hydroxyzine Hcl 25 Mg Tablet) 25 mg PO Q6H PRN PRN Reason: Anxiety Insulin Human Lispro (Insulin Lispro 100 Unit/Ml 3 Ml Vial) 0 unit SUBCUT QIDACHS [facility]; Protocol Last Admin: 10/23/22 11:27 Dose: Not Given Magnesium Hydroxide (Milk Of Magnesia 30 Ml Oral.Susp) 30 ml PO DAILY PRN PRN Reason: Constipation Metformin HCl (Metformin Hcl 500 Mg Tablet) 500 mg PO BIDWM [facility] Last Admin: 10/23/22 08:21 Dose: 500 mg Sitagliptin Phosphate (Sitagliptin Phosphate 100 Mg Tablet) 100 mg PO DAILY [facility] Last Admin: 10/23/22 08:19 Dose: 100 mg Trazodone HCl (Trazodone Hcl 50 Mg Tablet) 50 mg PO BEDTIME PRN PRN Reason: Insomnia Last Admin: 10/21/22 20:28 Dose: 50 mg Allergies Allergies Allergy/AdvReac Type Severity Reaction Status Date / Time No Known Allergies Allergy Verified 09/29/22 00:49 Assessment & Plan Assessment & Plan (1) Schizophrenia: Status: Acute Code(s): F20.9 - Schizophrenia, unspecified (2) Diabetes mellitus: Status: Acute Code(s): E11.9 - Type 2 diabetes mellitus without complications (3) Hypertension: Status: Acute Code(s): I10 - Essential (primary) hypertension Plan The patient is a 77-year-old female with a prior history of schizophrenia who was brought into the emergency room of another hospital for disorganized behavior, unable to take care of herself, her home was full with feces is rodents and spoiled food, unable to take care of herself. Since admission she has refused to take medications and she has been grossly disorganized. She is in a 3 day notice. Plan 1. Gather collateral information. 2. We are going to filed for Section 7 and 8 since the patient is unable to take care of herself. 3. We will continue with medical workout. 4. At this moment the patient will be technically homeless and we will need to find her proper housing. mining support worker is working with [facility] caseworker protective services 5. The patient has refused any type of treatment that we are going for court. This week we had the independent medical officer psychiatry assessment and today we had court. The the overlay plastician ordered Section 7 and 8, IM Madisyn back up Reason for continued inpatient stay Substantial Risk for: inability to function, rapid decompensation and med/psych decompensation Time Spent With Patient Time: Total time managing care of this patient today __20__ minutes.
[2022-10-23 16:30] LABS: Glucose, Whole Blood 280 mg/dL (60-115)
[2022-10-23 19:30] VITALS: BP 150/67; PULSE 76; RESP 18; TEMP 35.9; O2SAT 100
[2022-10-23] MEDS: ARIPiprazole 10 MG TABLET PO (19:46)
[2022-10-23 21:10] LABS: Glucose, Whole Blood 262 mg/dL (60-115)
[2022-10-24 01:35] LABS: Glucose, Whole Blood 237 mg/dL (60-115)
[2022-10-24 06:00] VITALS: BP 137/61; PULSE 71; RESP 16; TEMP 35.9; O2SAT 99
[2022-10-24 06:26] LABS: Glucose, Whole Blood 212 mg/dL (60-115)
[2022-10-24] MEDS: amLODIPine Besylate 2.5 MG TABLET 7.5 MG PO (08:38)
[2022-10-24] MEDS: SITagliptin Phosphate 100 MG TABLET PO (08:39)
--- NOTE | 2022-10-24 15:05 | HO.PSYCHPN ---
Subjective Subjective Date of Service: 10/24/22 Reason For Visit: F29 Shizophrenia, F43.10 PTSD Subjective Notes: Section 7 and Section 8 Interim History: The nursing staff reported that she had been angry with a peer but easily redirectable. She refused her insulin. The bilingual social worker reported that they CSS called and she has her apartment available. On interview the patient denies new symptoms she is compliant with Abilify. Mental Status Exam Mental Status Exam Patient Appearance: Well Grooomed and Appropriate Patient Orientation: Person and Situation Level of Consciousness: Awake and Appropriate Patient Behavior: Guarded and Passive Mood Description: Withdrawn Affect Description: Constricted Patient Cognition Impaired: Yes Ability to Follow Directions: Good Speech Pattern: Clear Hallucinations: None Delusions: Paranoid Ideation Thought Process: Distracted and Linear Thought Content: positive for [place] and positive for Poverty of Content Judgement: Fair Diagnostics Vital Signs (24Hr): Vital Signs - 24 hr 10/23/22 19:30 10/24/22 06:00 Temperature 96.7 F L 96.6 F L Pulse Rate 76 71 Respiratory Rate 18 16 Blood Pressure 150/67 H 137/61 Pulse Oximetry 100 99 Oxygen Delivery Method Room Air Room Air BMI result Body Mass Index 22.1 Labs 10/21/22 07:34 Labs: Laboratory Results - last 48 hr 10/22/22 10/22/22 10/23/22 16:25 19:42 05:14 POC Glucose 251 H 292 H 294 H 10/23/22 10/23/22 10/24/22 16:19 21:06 01:30 POC Glucose 280 H 262 H 237 H 10/24/22 06:22 POC Glucose 212 H Medications Medications Current Medications Acetaminophen (Acetaminophen 325 Mg Tablet) 650 mg PO Q6H PRN PRN Reason: Headache/Pain Mild Scale (1-3) Last Admin: 10/15/22 04:23 Dose: 650 mg Al Hydroxide/Mg Hydroxide (Magnesium Hydrox/Alum Hydrox 30 Ml Oral.Susp) 30 ml PO Q6H PRN PRN Reason: Heartburn/Nausea Amlodipine Besylate (Amlodipine Besylate 2.5 Mg Tablet) 7.5 mg PO DAILY [facility]; Protocol Last Admin: 10/24/22 08:38 Dose: 7.5 mg Aripiprazole (Aripiprazole 10 Mg Tablet) 10 mg PO BEDTIME [facility] Last Admin: 10/23/22 19:46 Dose: 10 mg Furosemide (Furosemide 20 Mg Tablet) 20 mg PO DAILY [facility]; Protocol Last Admin: 10/24/22 08:39 Dose: Not Given Haloperidol Lactate (Haloperidol Lactate 5 Mg/Ml Vial) 10 mg IM BEDTIME PRN PRN Reason: refusal of Abilify PO Last Admin: 10/19/22 21:31 Dose: 10 mg Hydroxyzine HCl (Hydroxyzine Hcl 25 Mg Tablet) 25 mg PO Q6H PRN PRN Reason: Anxiety Insulin Human Lispro (Insulin Lispro 100 Unit/Ml 3 Ml Vial) 0 unit SUBCUT QIDACHS [facility]; Protocol Last Admin: 10/24/22 11:38 Dose: Not Given Magnesium Hydroxide (Milk Of Magnesia 30 Ml Oral.Susp) 30 ml PO DAILY PRN PRN Reason: Constipation Metformin HCl (Metformin Hcl 500 Mg Tablet) 500 mg PO BIDWM [facility] Last Admin: 10/24/22 08:40 Dose: Not Given Sitagliptin Phosphate (Sitagliptin Phosphate 100 Mg Tablet) 100 mg PO DAILY [facility] Last Admin: 10/24/22 08:39 Dose: 100 mg Trazodone HCl (Trazodone Hcl 50 Mg Tablet) 50 mg PO BEDTIME PRN PRN Reason: Insomnia Last Admin: 10/21/22 20:28 Dose: 50 mg Allergies Allergies Allergy/AdvReac Type Severity Reaction Status Date / Time No Known Allergies Allergy Verified 09/29/22 00:49 Assessment & Plan Assessment & Plan (1) Schizophrenia: Status: Acute Code(s): F20.9 - Schizophrenia, unspecified (2) Diabetes mellitus: Status: Acute Code(s): E11.9 - Type 2 diabetes mellitus without complications (3) Hypertension: Status: Acute Code(s): I10 - Essential (primary) hypertension Plan The patient is a 77-year-old female with a prior history of schizophrenia who was brought into the emergency room of another hospital for disorganized behavior, unable to take care of herself, her home was full with feces is rodents and spoiled food, unable to take care of herself. Since admission she has refused to take medications and she has been grossly disorganized. She is in a 3 day notice. Plan 1. Gather collateral information. 2. We are going to filed for Section 7 and 8 since the patient is unable to take care of herself. 3. We will continue with medical workout. 4. The [facility] counseling case manager reported that the patient could have her apartment back if she is compliant with her treatment. 5. The patient has refused any type of treatment that we are going for court. This week we had the independent medical coordinator pesticide use assessment and today we had court. The the livestock rancher ordered Section 7 and 8, IM Vladislavl back up Reason for continued inpatient stay Substantial Risk for: inability to function, rapid decompensation and med/psych decompensation Time Spent With Patient Time: Total time managing care of this patient today ___20_ minutes.
[2022-10-24 18:00] VITALS: BP 167/72; PULSE 79; RESP 16; TEMP 36.3; O2SAT 97
[2022-10-24 19:49] LABS: Glucose, Whole Blood 290 mg/dL (60-115)
[2022-10-24] MEDS: ARIPiprazole 10 MG TABLET PO (20:08)
[2022-10-24] MEDS: metFORMIN HCl 500 MG TABLET PO (20:11)
[2022-10-25 06:08] LABS: Glucose, Whole Blood 195 mg/dL (60-115)
--- NOTE | 2022-10-25 12:57 | P.PNPSI_ITS ---
Subjective Subjective Date of Service: 10/25/22 Reason For Visit: F29 Shizophrenia, F43.10 PTSD Subjective Notes: Section 7 and Section 8 Interim History: The nursing staff reported the patient has been medication compliant but she refused her insulin. She stated that she does not have diabetes. The social science teacher reported that the [facility] case checker stated that she can go back into her regular apartment after been stable. On interview the patient denies new symptoms pleasant cooperative compliant with treatment. Mental Status Exam Mental Status Exam Patient Appearance: Appropriate Patient Orientation: Person Level of Consciousness: Awake and Appropriate Patient Behavior: Guarded and Passive Mood Description: Withdrawn Affect Description: Constricted Patient Cognition Impaired: Yes Ability to Follow Directions: Good Speech Pattern: Clear Hallucinations: None Delusions: Paranoid Ideation Thought Process: Distracted and Evasive Thought Content: positive for [place] and positive for Poverty of Content Judgement: Fair Diagnostics Vital Signs (24Hr): Vital Signs - 24 hr 10/24/22 18:00 Temperature 97.3 F Pulse Rate 79 Respiratory Rate 16 Blood Pressure 167/72 H Pulse Oximetry 97 Oxygen Delivery Method Room Air BMI result Body Mass Index 22.1 Labs 10/21/22 07:34 Labs: Laboratory Results - last 48 hr 10/23/22 10/23/22 10/24/22 16:19 21:06 01:30 POC Glucose 280 H 262 H 237 H 10/24/22 10/24/22 10/25/22 06:22 19:42 06:03 POC Glucose 212 H 290 H 195 H Medications Medications Current Medications Acetaminophen (Acetaminophen 325 Mg Tablet) 650 mg PO Q6H PRN PRN Reason: Headache/Pain Mild Scale (1-3) Last Admin: 10/15/22 04:23 Dose: 650 mg Al Hydroxide/Mg Hydroxide (Magnesium Hydrox/Alum Hydrox 30 Ml Oral.Susp) 30 ml PO Q6H PRN PRN Reason: Heartburn/Nausea Amlodipine Besylate (Amlodipine Besylate 2.5 Mg Tablet) 7.5 mg PO DAILY MARCOS; Protocol Last Admin: 10/25/22 09:15 Dose: Not Given Aripiprazole (Aripiprazole 10 Mg Tablet) 10 mg PO BEDTIME MARCOS Last Admin: 10/24/22 20:08 Dose: 10 mg Furosemide (Furosemide 20 Mg Tablet) 20 mg PO DAILY MARCOS; Protocol Last Admin: 10/25/22 09:15 Dose: Not Given Haloperidol Lactate (Haloperidol Lactate 5 Mg/Ml Vial) 10 mg IM BEDTIME PRN PRN Reason: refusal of Abilify PO Last Admin: 10/19/22 21:31 Dose: 10 mg Hydroxyzine HCl (Hydroxyzine Hcl 25 Mg Tablet) 25 mg PO Q6H PRN PRN Reason: Anxiety Insulin Human Lispro (Insulin Lispro 100 Unit/Ml 3 Ml Vial) 0 unit SUBCUT QIDACHS [facility]; Protocol Last Admin: 10/25/22 09:14 Dose: Not Given Magnesium Hydroxide (Milk Of Magnesia 30 Ml Oral.Susp) 30 ml PO DAILY PRN PRN Reason: Constipation Metformin HCl (Metformin Hcl 500 Mg Tablet) 500 mg PO BIDWM [facility] Last Admin: 10/25/22 09:15 Dose: Not Given Sitagliptin Phosphate (Sitagliptin Phosphate 100 Mg Tablet) 100 mg PO DAILY [facility] Last Admin: 10/25/22 09:15 Dose: Not Given Trazodone HCl (Trazodone Hcl 50 Mg Tablet) 50 mg PO BEDTIME PRN PRN Reason: Insomnia Last Admin: 10/21/22 20:28 Dose: 50 mg Allergies Allergies Allergy/AdvReac Type Severity Reaction Status Date / Time No Known Allergies Allergy Verified 09/29/22 00:49 Assessment & Plan Assessment & Plan (1) Schizophrenia: Status: Acute Code(s): F20.9 - Schizophrenia, unspecified (2) Diabetes mellitus: Status: Acute Code(s): E11.9 - Type 2 diabetes mellitus without complications (3) Hypertension: Status: Acute Code(s): I10 - Essential (primary) hypertension Plan The patient is a 77-year-old female with a prior history of schizophrenia who was brought into the emergency room of another hospital for disorganized behavior, unable to take care of herself, her home was full with feces is rodents and spoiled food, unable to take care of herself. Since admission she has refused to take medications and she has been grossly disorganized. She is in a 3 day notice. Plan 1. Gather collateral information. 2. We are going to filed for Section 7 and 8 since the patient is unable to take care of herself. 3. We will continue with medical workout. 4. The [facility] case checker reported that the patient could have her apartment back if she is compliant with her treatment. 5. The patient has refused any type of treatment that we are going for court. This week we had the independent medical underwriter assessment and today we had court. The the sales development manager ordered Section 7 and 8, JOSTIN Mars back up Reason for continued inpatient stay Substantial Risk for: inability to function, rapid decompensation and med/psych decompensation Time Spent With Patient Time: Total time managing care of this patient today _20___ minutes.
[2022-10-25 18:00] VITALS: BP 173/70; PULSE 77; RESP 16; TEMP 36; O2SAT 99
[2022-10-25] MEDS: ARIPiprazole 10 MG TABLET PO (20:19)
[2022-10-25] MEDS: metFORMIN HCl 500 MG TABLET PO (20:21)
[2022-10-26] MEDS: metFORMIN HCl 500 MG TABLET PO ×2 (05:37→17:14)
[2022-10-26 05:39] LABS: Glucose, Whole Blood 185 mg/dL (60-115)
--- NOTE | 2022-10-26 15:51 | HO.PSYCHPN ---
Subjective Subjective Date of Service: 10/26/22 Reason For Visit: F29 Shizophrenia, F43.10 PTSD Subjective Notes: Section 7 and Section 8 Interim History: The nursing staff reported the patient had been social with peers, she had been taking her Abilify but she had been refusing to take her coverage with insulin. The director social welfare reported that she can be discharged next Saturday after AC SS cleans up her apartment that had being very neglected and there D. On interview the patient denies new symptoms, pleasant and cooperative Mental Status Exam Mental Status Exam Patient Appearance: Well Grooomed Patient Orientation: Person and Situation Level of Consciousness: Awake and Appropriate Patient Behavior: Guarded and Passive Mood Description: Calm Affect Description: Constricted Patient Cognition Impaired: Yes Ability to Follow Directions: Good Speech Pattern: Clear Hallucinations: None Delusions: Paranoid Ideation Thought Process: Distracted Thought Content: positive for [place] and positive for Poverty of Content Judgement: Fair Diagnostics Vital Signs (24Hr): Vital Signs - 24 hr 10/25/22 18:00 Temperature 96.8 F Pulse Rate 77 Respiratory Rate 16 Blood Pressure 173/70 H Pulse Oximetry 99 Oxygen Delivery Method Room Air BMI result Body Mass Index 22.1 Labs 10/21/22 07:34 Labs: Laboratory Results - last 48 hr 10/24/22 10/25/22 10/26/22 19:42 06:03 05:33 POC Glucose 290 H 195 H 185 H Medications Medications Current Medications Acetaminophen (Acetaminophen 325 Mg Tablet) 650 mg PO Q6H PRN PRN Reason: Headache/Pain Mild Scale (1-3) Last Admin: 10/15/22 04:23 Dose: 650 mg Al Hydroxide/Mg Hydroxide (Magnesium Hydrox/Alum Hydrox 30 Ml Oral.Susp) 30 ml PO Q6H PRN PRN Reason: Heartburn/Nausea Amlodipine Besylate (Amlodipine Besylate 2.5 Mg Tablet) 7.5 mg PO DAILY MARCOS; Protocol Last Admin: 10/26/22 08:32 Dose: Not Given Aripiprazole (Aripiprazole 10 Mg Tablet) 10 mg PO BEDTIME MARCOS Last Admin: 10/25/22 20:19 Dose: 10 mg Furosemide (Furosemide 20 Mg Tablet) 20 mg PO DAILY MARCOS; Protocol Last Admin: 10/26/22 08:32 Dose: Not Given Haloperidol Lactate (Haloperidol Lactate 5 Mg/Ml Vial) 10 mg IM BEDTIME PRN PRN Reason: refusal of Abilify PO Last Admin: 10/19/22 21:31 Dose: 10 mg Hydroxyzine HCl (Hydroxyzine Hcl 25 Mg Tablet) 25 mg PO Q6H PRN PRN Reason: Anxiety Magnesium Hydroxide (Milk Of Magnesia 30 Ml Oral.Susp) 30 ml PO DAILY PRN PRN Reason: Constipation Metformin HCl (Metformin Hcl 500 Mg Tablet) 500 mg PO BIDWM [facility] Last Admin: 10/26/22 05:37 Dose: 500 mg Sitagliptin Phosphate (Sitagliptin Phosphate 100 Mg Tablet) 100 mg PO DAILY [facility] Last Admin: 10/26/22 08:32 Dose: Not Given Trazodone HCl (Trazodone Hcl 50 Mg Tablet) 50 mg PO BEDTIME PRN PRN Reason: Insomnia Last Admin: 10/21/22 20:28 Dose: 50 mg Allergies Allergies Allergy/AdvReac Type Severity Reaction Status Date / Time No Known Allergies Allergy Verified 09/29/22 00:49 Assessment & Plan Assessment & Plan (1) Schizophrenia: Status: Acute Code(s): F20.9 - Schizophrenia, unspecified (2) Diabetes mellitus: Status: Acute Code(s): E11.9 - Type 2 diabetes mellitus without complications (3) Hypertension: Status: Acute Code(s): I10 - Essential (primary) hypertension Plan The patient is a 77-year-old female with a prior history of schizophrenia who was brought into the emergency room of another hospital for disorganized behavior, unable to take care of herself, her home was full with feces is rodents and spoiled food, unable to take care of herself. Since admission she has refused to take medications and she has been grossly disorganized. She is in a 3 day notice. Plan 1. Gather collateral information. 2. We are going to filed for Section 7 and 8 since the patient is unable to take care of herself. 3. We will continue with medical workout. 4. The [facility] case folder reported that the patient could have her apartment back if she is compliant with her treatment. 5. The patient has refused any type of treatment that we are going for court. This week we had the independent medical services coordinator assessment and today we had court. The the judge clerk ordered Section 7 and 8, IM Haldol back up Reason for continued inpatient stay Substantial Risk for: inability to function, rapid decompensation and med/psych decompensation Time Spent With Patient Time: Total time managing care of this patient today __20__ minutes.
[2022-10-26 18:00] VITALS: BP 119/65; PULSE 86; RESP 16; TEMP 36.6; O2SAT 97
[2022-10-26] MEDS: ARIPiprazole 10 MG TABLET PO (20:06)
[2022-10-27] MEDS: Acetaminophen 325 MG TABLET 650 MG PO (03:36)
[2022-10-27 06:48] LABS: Glucose, Whole Blood 276 mg/dL (60-115)
[2022-10-27 07:45] VITALS: BP 183/79; PULSE 80; RESP 18; TEMP 35.9; O2SAT 98
[2022-10-27] MEDS: amLODIPine Besylate 2.5 MG TABLET 7.5 MG PO (09:21)
[2022-10-27 18:00] VITALS: BP 183/75; PULSE 85; RESP 16; TEMP 36.5; O2SAT 97
--- NOTE | 2022-10-27 20:04 | HO.PSYCHPN ---
Subjective Subjective Date of Service: 10/27/22 Reason For Visit: F29 Shizophrenia, F43.10 PTSD Subjective Notes: Conditional Voluntary Interim History: Pt continue to present as paranoid, she thinks some people are after her because she wants her belonging. She reports someone is spreading rumors that she killed children and take everything away from her. She continues to mistrust BP readings and do not think those are accurate either. She denies SI/HI. She reports although may feel a bit safer here, she still does not trust the staff or other people here. No behavioral concerns in terms of aggression. Review of Systems Review of Systems Yes all other systems are reviewed and are negative Mental Status Exam Mental Status Exam Narrative: adequately dressed and groomed, wearing street clothes. no PMA/PMR. cooperative. speech incr in amount, nml rate, nml loudness, nml tone, decr latency. thought process goal-directed; thought content seems WNL; Affect calm; no SI/HI/AVH. Insight and judgment are impaired, patient intermittently refusing antihypertensives and diabetic medication. Patient Appearance: Well Grooomed Patient Orientation: Person and Situation Level of Consciousness: Awake and Appropriate Patient Behavior: Guarded and Passive Mood Description: Calm Affect Description: Constricted Patient Cognition Impaired: Yes Ability to Follow Directions: Good Speech Pattern: Clear Memory Description: Remote Impaired and Episodic Impaired Diagnostics Vital Signs (24Hr): Vital Signs - 24 hr 10/27/22 07:45 Temperature 96.6 F L Pulse Rate 80 Respiratory Rate 18 Blood Pressure 183/79 H Pulse Oximetry 98 Oxygen Delivery Method Room Air BMI result Body Mass Index 22.1 Labs 10/28/22 07:07 Labs: Laboratory Results - last 48 hr 10/26/22 10/27/22 05:33 06:27 POC Glucose 185 H 276 H Medications Medications Current Medications Acetaminophen (Acetaminophen 325 Mg Tablet) 650 mg PO Q6H PRN PRN Reason: Headache/Pain Mild Scale (1-3) Last Admin: 10/27/22 03:36 Dose: 650 mg Al Hydroxide/Mg Hydroxide (Magnesium Hydrox/Alum Hydrox 30 Ml Oral.Susp) 30 ml PO Q6H PRN PRN Reason: Heartburn/Nausea Amlodipine Besylate (Amlodipine Besylate 2.5 Mg Tablet) 7.5 mg PO DAILY MARCOS; Protocol Last Admin: 10/27/22 09:21 Dose: 7.5 mg Aripiprazole (Aripiprazole 10 Mg Tablet) 10 mg PO BEDTIME MARCOS Last Admin: 10/26/22 20:06 Dose: 10 mg Furosemide (Furosemide 20 Mg Tablet) 20 mg PO DAILY MARCOS; Protocol Last Admin: 10/27/22 09:23 Dose: Not Given Haloperidol Lactate (Haloperidol Lactate 5 Mg/Ml Vial) 10 mg IM BEDTIME PRN PRN Reason: refusal of Abilify PO Last Admin: 10/19/22 21:31 Dose: 10 mg Hydroxyzine HCl (Hydroxyzine Hcl 25 Mg Tablet) 25 mg PO Q6H PRN PRN Reason: Anxiety Magnesium Hydroxide (Milk Of Magnesia 30 Ml Oral.Susp) 30 ml PO DAILY PRN PRN Reason: Constipation Metformin HCl (Metformin Hcl 500 Mg Tablet) 500 mg PO BIDWM [facility]OS Last Admin: 10/27/22 16:34 Dose: Not Given Sitagliptin Phosphate (Sitagliptin Phosphate 100 Mg Tablet) 100 mg PO DAILY [facility]OS Last Admin: 10/27/22 09:23 Dose: Not Given Trazodone HCl (Trazodone Hcl 50 Mg Tablet) 50 mg PO BEDTIME PRN PRN Reason: Insomnia Last Admin: 10/21/22 20:28 Dose: 50 mg Allergies Allergies Allergy/AdvReac Type Severity Reaction Status Date / Time No Known Allergies Allergy Verified 09/29/22 00:49 Assessment & Plan Assessment & Plan (1) Schizophrenia: Status: Acute Code(s): F20.9 - Schizophrenia, unspecified (2) Diabetes mellitus: Status: Acute Code(s): E11.9 - Type 2 diabetes mellitus without complications (3) Hypertension: Status: Acute Code(s): I10 - Essential (primary) hypertension Plan The patient is a 77-year-old female with a prior history of schizophrenia who was brought into the emergency room of another hospital for disorganized behavior, unable to take care of herself, her home was full with feces is rodents and spoiled food, unable to take care of herself. Since admission she has refused to take medications and she has been grossly disorganized. She is in a 3 day notice. Plan 10/27 continue tx. Reason for continued inpatient stay Substantial Risk for: inability to function Time Spent With Patient Time: Total time managing care of this patient today ____ minutes.
[2022-10-27] MEDS: ARIPiprazole 10 MG TABLET PO (20:38)
[2022-10-27] MEDS: metFORMIN HCl 500 MG TABLET PO (20:38)
[2022-10-28 06:16] LABS: Glucose, Whole Blood 233 mg/dL (60-115)
[2022-10-28 07:49] LABS: Creatinine Clr Calc Pharmacy 44.4; Estimated Glomerular Filt Rate > 60
[2022-10-28] MEDS: metFORMIN HCl 500 MG TABLET PO (16:34)
[2022-10-28 18:00] VITALS: BP 129/62; PULSE 68; RESP 16; TEMP 36.6; O2SAT 94
--- NOTE | 2022-10-28 20:16 | P.PNPSI_ITS ---
Subjective Subjective Date of Service: 10/28/22 Reason For Visit: F29 Shizophrenia, F43.10 PTSD Subjective Notes: Section 8 Interim History: Pt continue to present as paranoid, she thinks some people are after her because she wants her belonging. She follows this verse writer to tell me as she whispers what she thinks is going on here.. stating I may be able to trust you . She continues to mistrust BP readings and do not think those are accurate either. She denies SI/HI. She reports although may feel a bit safer here, she still does not trust the staff or other people here. No behavioral concerns in terms of aggression. Review of Systems Review of Systems Yes all other systems are reviewed and are negative Mental Status Exam Mental Status Exam Patient Appearance: Well Grooomed Patient Orientation: Person and Situation Level of Consciousness: Awake and Appropriate Patient Behavior: Guarded and Passive Mood Description: Calm Affect Description: Constricted Patient Cognition Impaired: Yes Ability to Follow Directions: Good Speech Pattern: Clear Memory Description: Remote Impaired and Episodic Impaired Diagnostics Vital Signs (24Hr): BMI result Body Mass Index 22.1 Labs 10/28/22 07:07 Labs: Laboratory Results - last 48 hr 10/27/22 10/28/22 10/28/22 06:27 05:59 07:07 Creatinine 0.80 Estim Creat Clear Calc 44.4 Estimated GFR > 60 POC Glucose 276 H 233 H Medications Medications Current Medications Acetaminophen (Acetaminophen 325 Mg Tablet) 650 mg PO Q6H PRN PRN Reason: Headache/Pain Mild Scale (1-3) Last Admin: 10/27/22 03:36 Dose: 650 mg Al Hydroxide/Mg Hydroxide (Magnesium Hydrox/Alum Hydrox 30 Ml Oral.Susp) 30 ml PO Q6H PRN PRN Reason: Heartburn/Nausea Amlodipine Besylate (Amlodipine Besylate 2.5 Mg Tablet) 7.5 mg PO DAILY MARCOS; Protocol Last Admin: 10/28/22 09:42 Dose: Not Given Aripiprazole (Aripiprazole 10 Mg Tablet) 10 mg PO BEDTIME MARCOS Last Admin: 10/27/22 20:38 Dose: 10 mg Furosemide (Furosemide 20 Mg Tablet) 20 mg PO DAILY MARCOS; Protocol Last Admin: 10/28/22 09:42 Dose: Not Given Haloperidol Lactate (Haloperidol Lactate 5 Mg/Ml Vial) 10 mg IM BEDTIME PRN PRN Reason: refusal of Abilify PO Last Admin: 10/19/22 21:31 Dose: 10 mg Hydroxyzine HCl (Hydroxyzine Hcl 25 Mg Tablet) 25 mg PO Q6H PRN PRN Reason: Anxiety Magnesium Hydroxide (Milk Of Magnesia 30 Ml Oral.Susp) 30 ml PO DAILY PRN PRN Reason: Constipation Metformin HCl (Metformin Hcl 500 Mg Tablet) 500 mg PO BIDWM [facility] Last Admin: 10/28/22 16:34 Dose: 500 mg Sitagliptin Phosphate (Sitagliptin Phosphate 100 Mg Tablet) 100 mg PO DAILY [facility] Last Admin: 10/28/22 09:42 Dose: Not Given Trazodone HCl (Trazodone Hcl 50 Mg Tablet) 50 mg PO BEDTIME PRN PRN Reason: Insomnia Last Admin: 10/21/22 20:28 Dose: 50 mg Allergies Allergies Allergy/AdvReac Type Severity Reaction Status Date / Time No Known Allergies Allergy Verified 09/29/22 00:49 Assessment & Plan Assessment & Plan (1) Schizophrenia: Status: Acute Code(s): F20.9 - Schizophrenia, unspecified (2) Diabetes mellitus: Status: Acute Code(s): E11.9 - Type 2 diabetes mellitus without complications (3) Hypertension: Status: Acute Code(s): I10 - Essential (primary) hypertension Plan The patient is a 77-year-old female with a prior history of schizophrenia who was brought into the emergency room of another hospital for disorganized behavior, unable to take care of herself, her home was full with feces is rodents and spoiled food, unable to take care of herself. Since admission she has refused to take medications and she has been grossly disorganized. She is in a 3 day notice. Plan 10/28 continue tx. Reason for continued inpatient stay Substantial Risk for: inability to function Time Spent With Patient Time: Total time managing care of this patient today ____ minutes.
[2022-10-28] MEDS: ARIPiprazole 10 MG TABLET PO (20:52)
[2022-10-28] MEDS: traZODone HCL 50 MG TABLET PO (20:52)
[2022-10-29 05:14] LABS: Glucose, Whole Blood 180 mg/dL (60-115)
[2022-10-29 07:45] VITALS: BP 129/58; PULSE 79; RESP 18; TEMP 36.7; O2SAT 97
--- NOTE | 2022-10-29 13:29 | HO.PSYCHPN ---
Subjective Subjective Date of Service: 10/29/22 Reason For Visit: F29 Shizophrenia, F43.10 PTSD Subjective Notes: Conditional Voluntary Interim History: The nursing staff reported the patient had being refusing all his diabetes medications stating that she does not have it. But she had been compliant with Abilify as per court order. The web content & social media manager reported that she contact [facility] case managing and her care will be changed to a clinic in [place] at [facility]. On interview the patient denies new symptoms, waiting for placement. Mental Status Exam Mental Status Exam Patient Appearance: Appropriate Patient Orientation: Person and Situation Level of Consciousness: Awake and Appropriate Patient Behavior: Guarded and Passive Mood Description: Withdrawn Affect Description: Constricted Patient Cognition Impaired: Yes Ability to Follow Directions: Good Speech Pattern: Clear Hallucinations: None Delusions: Paranoid Ideation and Ideas of Reference Thought Process: Distracted and Evasive Thought Content: positive for [place] and positive for Poverty of Content Judgement: Fair Diagnostics Vital Signs (24Hr): Vital Signs - 24 hr 10/28/22 18:00 10/29/22 07:45 Temperature 98 F 98.0 F Pulse Rate 68 79 Respiratory Rate 16 18 Blood Pressure 129/62 129/58 L Pulse Oximetry 94 97 Oxygen Delivery Method Room Air Room Air BMI result Body Mass Index 22.1 Labs 10/28/22 07:07 Labs: Laboratory Results - last 48 hr 10/28/22 10/28/22 10/29/22 05:59 07:07 05:07 Creatinine 0.80 Estim Creat Clear Calc 44.4 Estimated GFR > 60 POC Glucose 233 H 180 H Medications Medications Current Medications Acetaminophen (Acetaminophen 325 Mg Tablet) 650 mg PO Q6H PRN PRN Reason: Headache/Pain Mild Scale (1-3) Last Admin: 10/27/22 03:36 Dose: 650 mg Al Hydroxide/Mg Hydroxide (Magnesium Hydrox/Alum Hydrox 30 Ml Oral.Susp) 30 ml PO Q6H PRN PRN Reason: Heartburn/Nausea Amlodipine Besylate (Amlodipine Besylate 2.5 Mg Tablet) 7.5 mg PO DAILY MARCOS; Protocol Last Admin: 10/29/22 08:41 Dose: Not Given Aripiprazole (Aripiprazole 10 Mg Tablet) 10 mg PO BEDTIME MARCOS Last Admin: 10/28/22 20:52 Dose: 10 mg Furosemide (Furosemide 20 Mg Tablet) 20 mg PO DAILY MARCOS; Protocol Last Admin: 10/29/22 08:41 Dose: Not Given Haloperidol Lactate (Haloperidol Lactate 5 Mg/Ml Vial) 10 mg IM BEDTIME PRN PRN Reason: refusal of Abilify PO Last Admin: 10/19/22 21:31 Dose: 10 mg Hydroxyzine HCl (Hydroxyzine Hcl 25 Mg Tablet) 25 mg PO Q6H PRN PRN Reason: Anxiety Magnesium Hydroxide (Milk Of Magnesia 30 Ml Oral.Susp) 30 ml PO DAILY PRN PRN Reason: Constipation Metformin HCl (Metformin Hcl 500 Mg Tablet) 500 mg PO BIDWM [facility] Last Admin: 10/29/22 08:40 Dose: Not Given Sitagliptin Phosphate (Sitagliptin Phosphate 100 Mg Tablet) 100 mg PO DAILY [facility] Last Admin: 10/29/22 08:41 Dose: Not Given Trazodone HCl (Trazodone Hcl 50 Mg Tablet) 50 mg PO BEDTIME PRN PRN Reason: Insomnia Last Admin: 10/28/22 20:52 Dose: 50 mg Allergies Allergies Allergy/AdvReac Type Severity Reaction Status Date / Time No Known Allergies Allergy Verified 09/29/22 00:49 Assessment & Plan Assessment & Plan (1) Schizophrenia: Status: Acute Code(s): F20.9 - Schizophrenia, unspecified (2) Diabetes mellitus: Status: Acute Code(s): E11.9 - Type 2 diabetes mellitus without complications (3) Hypertension: Status: Acute Code(s): I10 - Essential (primary) hypertension Plan The patient is a 77-year-old female with a prior history of schizophrenia who was brought into the emergency room of another hospital for disorganized behavior, unable to take care of herself, her home was full with feces is rodents and spoiled food, unable to take care of herself. Since admission she has refused to take medications and she has been grossly disorganized. She is in a 3 day notice. Plan 1. Continue Abilify [address] as per court order. 2. Coordination of care with [facility] employment evaluator/case manager in the community for proper discharge planning. Apparently her apartment has not been lost. Reason for continued inpatient stay Substantial Risk for: inability to function, rapid decompensation and med/psych decompensation Time Spent With Patient Time: Total time managing care of this patient today __20__ minutes.
[2022-10-29 18:00] VITALS: BP 132/56; PULSE 64; RESP 17; TEMP 36.2; O2SAT 99
[2022-10-29] MEDS: metFORMIN HCl 500 MG TABLET PO (18:26)
[2022-10-29] MEDS: ARIPiprazole 10 MG TABLET PO (20:43)
[2022-10-30 05:59] LABS: Glucose, Whole Blood 328 mg/dL (60-115)
[2022-10-30] MEDS: metFORMIN HCl 500 MG TABLET PO ×2 (06:03→16:43)
[2022-10-30 09:01] VITALS: BP 125/60; PULSE 70; RESP 17; O2SAT 100
[2022-10-30] MEDS: amLODIPine Besylate 2.5 MG TABLET 7.5 MG PO (09:03)
[2022-10-30] MEDS: Furosemide 20 MG TABLET PO (09:03)
[2022-10-30] MEDS: SITagliptin Phosphate 100 MG TABLET PO (09:04)
--- NOTE | 2022-10-30 13:50 | P.PNPSI_ITS ---
Subjective Subjective Date of Service: 10/30/22 Reason For Visit: F29 Shizophrenia, F43.10 PTSD Subjective Notes: Section 7 and Section 8 Interim History: The nursing staff reported the patient has refused a.m. medications but she was fully compliant with the court order medications. She slept 6 hours. The web content & social media manager will contact [facility] case managing to see if his apartment is ready to go back. On interview the patient denies new symptoms waiting for placement. We are expecting to discharge her on . Mental Status Exam Mental Status Exam Patient Appearance: Well Grooomed and Appropriate Patient Orientation: Person and Situation Level of Consciousness: Awake and Appropriate Patient Behavior: Guarded and Passive Mood Description: Constricted Affect Description: Calm Patient Cognition Impaired: Yes Ability to Follow Directions: Good Speech Pattern: Clear Hallucinations: None Delusions: Not Present Thought Process: Distracted and Evasive Judgement: Poor Diagnostics Vital Signs (24Hr): Vital Signs - 24 hr 10/29/22 18:00 10/30/22 09:01 Temperature 97.1 F Pulse Rate 64 70 Respiratory Rate 17 17 Blood Pressure 132/56 L 125/60 Pulse Oximetry 99 100 Oxygen Delivery Method Room Air Room Air BMI result Body Mass Index 22.1 Labs 10/28/22 07:07 Labs: Laboratory Results - last 48 hr 10/29/22 10/30/22 05:07 05:54 POC Glucose 180 H 328 H Medications Medications Current Medications Acetaminophen (Acetaminophen 325 Mg Tablet) 650 mg PO Q6H PRN PRN Reason: Headache/Pain Mild Scale (1-3) Last Admin: 10/27/22 03:36 Dose: 650 mg Al Hydroxide/Mg Hydroxide (Magnesium Hydrox/Alum Hydrox 30 Ml Oral.Susp) 30 ml PO Q6H PRN PRN Reason: Heartburn/Nausea Amlodipine Besylate (Amlodipine Besylate 2.5 Mg Tablet) 7.5 mg PO DAILY MARCOS; Protocol Last Admin: 10/30/22 09:03 Dose: 7.5 mg Aripiprazole (Aripiprazole 10 Mg Tablet) 10 mg PO BEDTIME MARCOS Last Admin: 10/29/22 20:43 Dose: 10 mg Furosemide (Furosemide 20 Mg Tablet) 20 mg PO DAILY MARCOS; Protocol Last Admin: 10/30/22 09:03 Dose: 20 mg Haloperidol Lactate (Haloperidol Lactate 5 Mg/Ml Vial) 10 mg IM BEDTIME PRN PRN Reason: refusal of Abilify PO Last Admin: 10/19/22 21:31 Dose: 10 mg Hydroxyzine HCl (Hydroxyzine Hcl 25 Mg Tablet) 25 mg PO Q6H PRN PRN Reason: Anxiety Magnesium Hydroxide (Milk Of Magnesia 30 Ml Oral.Susp) 30 ml PO DAILY PRN PRN Reason: Constipation Metformin HCl (Metformin Hcl 500 Mg Tablet) 500 mg PO BIDWM [facility] Last Admin: 10/30/22 06:03 Dose: 500 mg Sitagliptin Phosphate (Sitagliptin Phosphate 100 Mg Tablet) 100 mg PO DAILY [facility] Last Admin: 10/30/22 09:04 Dose: 100 mg Trazodone HCl (Trazodone Hcl 50 Mg Tablet) 50 mg PO BEDTIME PRN PRN Reason: Insomnia Last Admin: 10/28/22 20:52 Dose: 50 mg Allergies Allergies Allergy/AdvReac Type Severity Reaction Status Date / Time No Known Allergies Allergy Verified 09/29/22 00:49 Assessment & Plan Assessment & Plan (1) Schizophrenia: Status: Acute Code(s): F20.9 - Schizophrenia, unspecified (2) Diabetes mellitus: Status: Acute Code(s): E11.9 - Type 2 diabetes mellitus without complications (3) Hypertension: Status: Acute Code(s): I10 - Essential (primary) hypertension Plan The patient is a 77-year-old female with a prior history of schizophrenia who was brought into the emergency room of another hospital for disorganized behavior, unable to take care of herself, her home was full with feces is rodents and spoiled food, unable to take care of herself. Since admission she has refused to take medications and she has been grossly disorganized. She is in a 3 day notice. Plan 1. Continue Abilify [address] as per court order. 2. Coordination of care with [facility] family preservation caseworker in the community for proper discharge planning. Apparently her apartment has not been lost but apparently she can go back recently. 3. Possible discharge for Reason for continued inpatient stay Substantial Risk for: inability to function, rapid decompensation and med/psych decompensation Time Spent With Patient Time: Total time managing care of this patient today __20__ minutes.
[2022-10-30 18:00] VITALS: RESP 18; TEMP 35.9; O2SAT 98
[2022-10-30] MEDS: ARIPiprazole 10 MG TABLET PO (19:52)
[2022-10-31 04:45] LABS: Glucose, Whole Blood 204 mg/dL (60-115)
[2022-10-31] MEDS: metFORMIN HCl 500 MG TABLET PO ×2 (05:14→16:04)
[2022-10-31 08:08] VITALS: BP 153/67; PULSE 77; RESP 17; TEMP 36.4; O2SAT 97
--- NOTE | 2022-10-31 13:38 | P.PNPSI_ITS ---
Subjective Subjective Date of Service: 10/31/22 Reason For Visit: F29 Shizophrenia, F43.10 PTSD Subjective Notes: Conditional Voluntary Interim History: The nursing staff reported the patient had been compliant with treatment as per court order. On interview the patient denies new symptoms she is ready to go tomorrow back to her apartment. She is happy about this. Mental Status Exam Mental Status Exam Patient Appearance: Well Grooomed Patient Orientation: Person Level of Consciousness: Awake and Appropriate Patient Behavior: Guarded and Passive Mood Description: Calm Affect Description: Constricted Patient Cognition Impaired: Yes Ability to Follow Directions: Good Speech Pattern: Clear Hallucinations: None Delusions: Paranoid Ideation Thought Process: Distracted and Slowed Thinking Thought Content: positive for [place] and positive for Poverty of Content Judgement: Fair Diagnostics Vital Signs (24Hr): Vital Signs - 24 hr 10/30/22 18:00 10/31/22 08:08 Temperature 96.7 F L 97.5 F Pulse Rate 77 Respiratory Rate 18 17 Blood Pressure 153/67 H Pulse Oximetry 98 97 Oxygen Delivery Method Room Air Room Air BMI result Body Mass Index 22.1 Labs 10/28/22 07:07 Labs: Laboratory Results - last 48 hr 10/30/22 10/31/22 05:54 04:41 POC Glucose 328 H 204 H Medications Medications Current Medications Acetaminophen (Acetaminophen 325 Mg Tablet) 650 mg PO Q6H PRN PRN Reason: Headache/Pain Mild Scale (1-3) Last Admin: 10/27/22 03:36 Dose: 650 mg Al Hydroxide/Mg Hydroxide (Magnesium Hydrox/Alum Hydrox 30 Ml Oral.Susp) 30 ml PO Q6H PRN PRN Reason: Heartburn/Nausea Amlodipine Besylate (Amlodipine Besylate 2.5 Mg Tablet) 7.5 mg PO DAILY MARCOS; Protocol Last Admin: 10/31/22 08:30 Dose: Not Given Aripiprazole (Aripiprazole 10 Mg Tablet) 10 mg PO BEDTIME MARCOS Last Admin: 10/30/22 19:52 Dose: 10 mg Furosemide (Furosemide 20 Mg Tablet) 20 mg PO DAILY MARCOS; Protocol Last Admin: 10/31/22 08:30 Dose: Not Given Haloperidol Lactate (Haloperidol Lactate 5 Mg/Ml Vial) 10 mg IM BEDTIME PRN PRN Reason: refusal of Abilify PO Last Admin: 10/19/22 21:31 Dose: 10 mg Hydroxyzine HCl (Hydroxyzine Hcl 25 Mg Tablet) 25 mg PO Q6H PRN PRN Reason: Anxiety Magnesium Hydroxide (Milk Of Magnesia 30 Ml Oral.Susp) 30 ml PO DAILY PRN PRN Reason: Constipation Metformin HCl (Metformin Hcl 500 Mg Tablet) 500 mg PO BIDWM [facility]PLACED [facility] Last Admin: 10/31/22 05:14 Dose: 500 mg Sitagliptin Phosphate (Sitagliptin Phosphate 100 Mg Tablet) 100 mg PO DAILY REPLACED BY [facility] Last Admin: 10/31/22 08:30 Dose: Not Given Trazodone HCl (Trazodone Hcl 50 Mg Tablet) 50 mg PO BEDTIME PRN PRN Reason: Insomnia Last Admin: 10/28/22 20:52 Dose: 50 mg Allergies Allergies Allergy/AdvReac Type Severity Reaction Status Date / Time No Known Allergies Allergy Verified 09/29/22 00:49 Assessment & Plan Assessment & Plan (1) Schizophrenia: Status: Acute Code(s): F20.9 - Schizophrenia, unspecified (2) Diabetes mellitus: Status: Acute Code(s): E11.9 - Type 2 diabetes mellitus without complications (3) Hypertension: Status: Acute Code(s): I10 - Essential (primary) hypertension Plan The patient is a 77-year-old female with a prior history of schizophrenia who was brought into the emergency room of another hospital for disorganized behavior, unable to take care of herself, her home was full with feces is rodents and spoiled food, unable to take care of herself. Since admission she has refused to take medications and she has been grossly disorganized. She is in a 3 day notice. Plan 1. Continue Abilify 10 [address] as per court order. 2. Coordination of care with [facility] egg caser in the community for proper discharge planning. Apparently her apartment has not been lost but apparently she can go back recently. 3. Possible discharge for Reason for continued inpatient stay Substantial Risk for: inability to function, rapid decompensation and med/psych decompensation Time Spent With Patient Time: Total time managing care of this patient today _20___ minutes.
[2022-10-31 18:00] VITALS: BP 168/80; PULSE 99; RESP 18; TEMP 36.4; O2SAT 99
[2022-10-31] MEDS: ARIPiprazole 10 MG TABLET PO (20:01)
[2022-10-31 20:15] LABS: Glucose, Whole Blood 358 mg/dL (60-115)
[2022-11-01 06:26] LABS: Glucose, Whole Blood 180 mg/dL (60-115)
--- NOTE | 2022-11-01 08:18 | P.DS_ITS ---
DS: Providers Provider Date of Service: 11/01/22 Date of admission: 09/29/22 00:28 Date of discharge: 11/01/22 Primary care physician: Unknown Physician Consults: 09/29/22 00:49 Consult to Hospitalist Routine Comment: Consulting Provider: Hospitalist Reason For Exam: OSH admission DS: Diagnosis Discharge Diagnosis (1) Schizophrenia: Status: Acute (2) Diabetes mellitus: Status: Acute (3) Hypertension: Status: Acute DS: Medications Discharge Medications Home Medications: Home Medications Medication Instructions Recorded Confirmed No Known Home Meds 10/17/22 10/17/22 Mental Status Exam Mental Status Exam Patient Appearance: Appropriate Patient Orientation: Person and Situation Level of Consciousness: Awake and Appropriate Patient Behavior: Guarded and Passive Mood Description: Calm Affect Description: Constricted Patient Cognition Impaired: Yes Ability to Follow Directions: Good Speech Pattern: Clear Hallucinations: None Delusions: Ideas of Reference Thought Process: Distracted and Slowed Thinking Thought Content: positive for [place], positive for Circum[place] and positive for Perseveration Judgement: Poor Data Data Completed and Pending Completed studies during hospitalization [Text1]: 10/26/22 10/27/22 10/28/22 05:33 06:27 05:59 Creatinine Estim Creat Clear Calc Estimated GFR POC Glucose 185 H 276 H 233 H 10/28/22 10/29/22 10/30/22 07:07 05:07 05:54 Creatinine 0.80 Estim Creat Clear Calc 44.4 Estimated GFR > 60 POC Glucose 180 H 328 H 10/31/22 10/31/22 11/01/22 04:41 20:10 06:08 Creatinine Estim Creat Clear Calc Estimated GFR POC Glucose 204 H 358 H* 180 H DS: Summary Hospital Course Hospital Course: The patient is a 77-year-old female, living in a [facility] housing system, with a past history of schizoaffective disorder bipolar type who was brought to the emergency room of another hospital for exacerbation of psychotic symptoms. Apparently the patient had been on compliant with her medications and she d ecompensated with disorganized behavior, unable to live by herself since her apartment was extremely filthy with rotten food and trash all over the place. Please see the HPI for the admission note for further details. The patient was brought initially on a Section 12, the patient was partially compliant with medications. She refused to sinus CV and we needed to filed for Section 7 and 8 that eventually we 1. The patient was started on Abilify titrated up to 10 mg p.o. daily with improvement of her psychotic symptoms. Even though, the patient is adamant that she does not have other medical problems such as diabetes and she has refused care. On admission, the social sciences lecturer reported that [facility] staff reported that most likely she would had been evicted. But, the [facility] team advocated for her her apartment was available again. Even though the patient is chronically paranoid refusing care for her diabetes, her fasting blood sugars have not been critical. She had been compliant with the Abilify and overall, even though the there is some cognitive impairment, there is no evidence of safety concerns. Since there were no safety concerns discharge planning was started. She has several ancillary services in the community. The patient does not have guardianship or court order for treatment over objection. Time spent discussing smoking cessation with patient: 3 to 10 minutes Status at Discharge Cognitive/behavioral status at discharge: Impaired at baseline but she is able to do her own activities of daily life. Functional status at discharge: independent ambulation Overall status at discharge: patient is back to baseline Time Spent with Patient Time attestation: Total time managing care of this patient today ___30_ minutes. Time spent: Less than 30 minutes Discharge Plan Discharge Anticipated Discharge Date/Time: 11/01/22 11:00 Patient Disposition: Home Health Service Discharge Diagnosis: Schizoaffective disorder Dementia Referrals: Sylvia Jung -JUNIOR PROJECT MANAGER (Prescriber @[facility] outpatient ) [Other] - 11/26/22 11:00 am (Appointment is in-person ) Robina Turk - Mental health Therapist [Other] - 11/06/22 10:00 am (Appointment is in-person) Estefnay Polanco - [facility] [Other] - 11/05/22 1:00 pm (Community Support Program - [facility]: 11/05/2022 @ 1pm ) Chrissie Doe - [facility] [Other] - 11/10/22 11:15 am (Appointment in-person. November 10, 2022 @ 11:15pm ) Claudy - Tenancy Preservation Program [Other] - 11/09/22 9:00 am Physician,Balwinder J [Primary Care Provider] - 1 Week Discharge Medications: New amlodipine 2.5 mg Tablet 7.5 mg PO DAILY 30 Days Qty: 90 0RF Protocol: Hold for SBP< HOLD for SBP < : 90 aripiprazole 10 mg Tablet 10 mg PO BEDTIME Qty: 30 0RF metformin 500 mg Tablet 500 mg PO BIDWM 30 Days Qty: 60 0RF trazodone 50 mg Tablet 50 mg PO BEDTIME PRN (Reason: Insomnia) 30 Days Qty: 30 0RF furosemide 20 mg Tablet 20 mg PO DAILY 30 Days Qty: 30 0RF Protocol: Hold for SBP< HOLD for SBP < : 90 Januvia 100 mg Tablet 100 mg PO DAILY Qty: 30 0RF Discharge Orders: Discharge Order (Routine); Ordered 11/01/22 Ordered By: Gautam Guerin Diet: Advance to usual diet Activity on Discharge: As tolerated Stand Alone Forms: Patient Portal Discharge page Care Plan Goals: Care plan goals achieved in this admission Health Concerns: Continue treatment with primary care physician in the community. Plan of Treatment: Continue outpatient treatment at a local clinic. Continue with [facility] case management services. Assessment: Elderly female with a past history of schizoaffective disorder bipolar type and dementia who was brought into the facility for decompensation due to noncompliance. The patient was psychotic in the community unable to take care of herself. Initially she refused treatment we needed to filed for 7 and 8 that he was granted. Currently the patient is at baseline, chronically delusional but safe in the community.
[2022-11-01] MEDS: amLODIPine Besylate 2.5 MG TABLET 7.5 MG PO (08:22)
[2022-11-01] MEDS: metFORMIN HCl 500 MG TABLET PO (08:22)
[2022-11-01] MEDS: Furosemide 20 MG TABLET PO (08:22)
[2022-11-01] MEDS: SITagliptin Phosphate 100 MG TABLET PO (08:22)
== END 2022-11-01 09:47 | disposition home health service (06) | DRG 885 ==
PROVIDERS: Psychiatry & Neurology Psychiatry; Admitting Provider Psychiatry & Neurology Psychiatry; Visit Provider Psychiatry & Neurology Psychiatry
DX: F20.9 Schizophrenia, unspecified (principal); E87.6 Hypokalemia; D72.819 Decreased white blood cell count, unspecified; I10 Essential (primary) hypertension; E11.65 Type 2 diabetes mellitus with hyperglycemia; D69.6 Thrombocytopenia, unspecified; E78.5 Hyperlipidemia, unspecified; Z79.84 Long term (current) use of oral hypoglycemic drugs; Z79.899 Other long term (current) drug therapy
CPT/HCPCS: 36415; 80053; 80061; 82565; 82607; 82746; 82947; 83036; 84439; 84443

== ENCOUNTER → 2022-09-29 00:28 | Outpatient (BNV) | payer MEDICARE, MEDICAID, SELFPAY | PROVIDERS: Admitting Provider Psychiatry & Neurology Psychiatry; Visit Provider Psychiatry & Neurology Psychiatry | DX: F20.89 Other schizophrenia (principal); E11.9 Type 2 diabetes mellitus without complications; I10 Essential (primary) hypertension | CPT/HCPCS: 99221; 99231; 99232; 99238 ==

== ENCOUNTER → 2022-09-29 00:28 | Outpatient (BNV) | payer MEDICARE, MEDICAID, SELFPAY | PROVIDERS: Admitting Provider Psychiatry & Neurology Psychiatry; Visit Provider Physician Assistant | DX: Z00.00 Encounter for general adult medical examination without abnormal findings (principal) | CPT/HCPCS: 99429 ==